=== PATIENT | female | born 1975 | race Caucasian/White ===

== ENCOUNTER 2018-04-09 17:09 | Emergency (ER) | payer OTHER, SELFPAY ==
[2018-04-09 17:10] VITALS: BP 112/72; PULSE 80; RESP 16; TEMP 37.1; O2SAT 97; BMI 38.1
--- NOTE | 2018-04-09 17:33 | RAD_ITS ---
STUDY: X-RAY - LEFT TIBIA AND FIBULA REASON FOR EXAM: Female, 42 years old. Fall TECHNIQUE: 2 view(s) of the tibia and fibula were obtained. COMPARISON: None. FINDINGS: There is no evidence of fracture or dislocation. There are no significant degenerative changes. There are no radiodense foreign bodies. RAD/Tibia & Fibula 2 Views IMPRESSION: No fracture or dislocation. Electronically Signed: Kam Mccracken, at 18:04 EDT Tel , Service support ,
--- NOTE | 2018-04-09 17:36 | ED.VISSUMM ---
- ER Visit Summary Date of Service: 04/09/18 Chief Complaint: Left leg injury History of Present Illness: The patient is a 42 F who was rushing out of her house when the shoelace on her left shoe got caught in the door. Patient fell to the stoop. She injured her left leg. Patient states she is able to walk on her leg but has sharp shooting pain up the back of her leg with ambulation. She has not yet taken anything for pain. Patient takes baby aspirin secondary to a history of A. fib, but is on no other anticoagulants. She did not strike her head or lose consciousness. Physical Examination: Vital signs are unremarkable. Head and neck examination reveals no external sign of trauma. Heart is regular rate and rhythm. Lung sounds are clear. Abdomen is soft nontender. Lower extremity examination was tenderness over the fibular head of the left leg. She has soft tissue tenderness of the anterior thigh as well. She has full range of motion and strong distal pulses. There is early ecchymosis noted over the anterior left thigh. Test Results: Left tib-fib x-rays are obtained and showed no evidence of fracture. Emergency Department Course and Treatment: Is given Naprosyn here for pain. Test results were discussed with her. She will be given an Roberto wrap and prescription for Naprosyn. Treatment Plan: [] Disposition: Discharge Impression: 1. Mechanical fall 2. Left leg contusion This note was generated with [employer] dictation software. It may contain incorrect words, spelling, and punctuation that were not noted in review of the chart prior to signing ED Disposition - Plan for ED Patient: Chief Complaint: Lower Extremity Injury Referrals: Care Physician,No Primary [Primary Care Provider] -
[2018-04-09] MEDS: Naproxen 500 MG Tablet PO (17:40)
--- NOTE | 2018-04-09 18:22 | ED.DEP ---
ED Disposition - Plan for ED Patient: Disposition: Home or Assisted Living Chief Complaint: Lower Extremity Injury Instructions: ED Contusion Lower Ext Prescriptions: Naproxen [Naprosyn] 500 mg PO BID PRN #14 tablet PRN Reason: Pain Referrals: Peter Bush MD [STAFF PHYSICIAN] - As Needed
== END 2018-04-09 18:34 | disposition home or self-care (01) ==
PROVIDERS: Emergency Provider Emergency Medicine
DX: S80.12XA Contusion of left lower leg, initial encounter (principal); W19.XXXA Unspecified fall, initial encounter; Y93.9 Activity, unspecified; Y92.9 Unspecified place or not applicable; I48.91 Unspecified atrial fibrillation; Z90.49 Acquired absence of other specified parts of digestive tract; Z79.82 Long term (current) use of aspirin
CPT/HCPCS: 73590; 99283

== ENCOUNTER 2019-05-07 19:58 | Emergency (ER) | payer OTHER, SELFPAY ==
[2019-05-07] VITALS (7 sets, daily range): BP systolic 107–122; BP diastolic 67–96; PULSE 81–204; RESP 17–29; TEMP 36.8; O2SAT 96–98; BMI 41.5
--- NOTE | 2019-05-07 20:18 | EKG12_ITS ---
Test Reason : REPEAT PALPITATIONS Blood Pressure : / mmHG Vent. Rate : 078 BPM Atrial Rate : 078 BPM P-R Int : 160 ms QRS Dur : 086 ms QT Int : 356 ms P-R-T Axes : 053 029 021 degrees QTc Int : 405 ms Normal sinus rhythm Normal ECG Confirmed by PAT IRELAND, SHANNON ([id number]), senior editor ZECHARIAH NORIEGA ([id number]) on 05/12/2019 8:44:08 AM Referred By: JAGRUTI Confirmed By:SHANNON STEWART MD
--- NOTE | 2019-05-07 20:18 | RAD_ITS ---
STUDY: X-RAY CHEST REASON FOR EXAM: Female, 43 years old. Chest pain TECHNIQUE: Portable chest COMPARISON: 10/08/2016 FINDINGS: The lungs are clear and expanded. There is no demonstrated pleural abnormality. Normal size heart. Normal mediastinum and liat. Normal visualized pulmonary arteries. Normal visualized aortic arch and descending thoracic aorta. Normal visualized thoracic spine. Normal visualized ribs, clavicles, and shoulders. There is no demonstrated abnormality of the visualized soft tissue structures of the upper abdomen. RAD/Chest 1 View (Portable) IMPRESSION: Normal x-ray examination of the chest. Electronically Signed: Nixon Wade, at 20:56 EDT Tel , Service support ,
[2019-05-07 20:36] LABS: Absolute Lymphocyte Count 2.51 X10^3/ul (0.83-4.51); Basophil# 0.03 X10^3/uL; Basophil% 0.3 % (0-1); Eosinophil# 0.22 X10^3/uL; Eosinophils% 2.5 % (0-5); Hematocrit 37.8 % (37-47); Hemoglobin 13.1 g/dl (12.0-15.0); Lymphocyte # 2.51 X10^3/ul (4.0); Mean Corp Hgb Conc 34.7 g/gl (32-36); Mean Corpuscular Hgb 28.5 pg (27.0-32.0); Mean Corpuscular Volume 82.2 fL (81-99); Mean Platelet Vol. 9.7 fl (6.2-12.0); Monocyte# 0.85 X10^3/uL; Monocyte% 9.8 % (0-10); Neutrophil # 5.01 X10^3/uL (2.7-7.7); Neutrophil % 58.1 % (47-70); Platelet Count 247 K/mm3 (150-450); RBC Distribution Width CV 13.8 % (11.6-14.6); White Blood Count 8.7 K/mm3 (4.4-11.0)
[2019-05-07 20:37] LABS: POSITIVE COUNT NO; POSITIVE DIFFERENTIAL NO; POSITIVE MORPHOLOGY NO
--- NOTE | 2019-05-07 20:39 | ED.DCSUM_ITS ---
History of Present Illness Chief Complaint: Palpitations Informant: Patient Onset: Today Timing: Continuous Current Severity: Mild Narrative: Patient indicates she has a history of intermittent paroxysmal A. fib she repo rts about an hour ago she felt as if her heart was racing usually the A. fib stopped spontaneously it did not she presents the emergency department. She has not been ill in any way, she is had no fever no cough no chest pain numbness weakness paresthesias, she has no history of AR PE or DVT, she had extensive prior evaluation by cardiology and was told that the paroxysms would simply be managed as needed conservatively she is on no chronic medications other than aspirin normally she is in a sinus rhythm Past Medical History - Allergies and Home Meds Allergies/Adverse Reactions: Allergies Penicillins Allergy (Verified 05/07/19 19:59) Rash Primary Care Physician: Care Physician,No Primary [Primary Care Provider] - Past Medical History: - - Paroxysmal A. fib Smoking Status: Never smoker Review of Systems All systems negative except as indicated General: Denies: Chills, Fever, Sweats Eyes: Denies: Visual changes - bilaterally, Diplopia ENT: Denies: Rhinorrhea, Sore throat Cardiovascular: Reports: Palpitations. Denies: Chest pain Respiratory: Denies: Dyspnea, Cough, Dyspnea on exertion Gastrointestinal: Denies: Abdominal pain, Nausea, Vomiting, Diarrhea, Melena, Hematochezia Genitourinary: Denies: Dysuria, Hematuria, Frequency Musculoskeletal: Denies: Back pain, Extremity Pain Skin: Denies: Rash, Wounds Neurological: Denies: Headache, Weakness, Numbness Physical Exam Vital Signs/Narrative: Vital Signs Temp Pulse Resp BP Pulse Ox 05/07/19 20:00 98.3 F 99 17 120/78 96 Inital Vital Signs reviewed: Yes General: Well nourished, Well developed, No Acute Distress Head: Normocephalic, Atraumatic Eyes: Perrl, EOMI ENT: Moist mucous membranes, No rhinorrhea Neck: Supple, Nontender Cardiovascular: Regular rate, Regular rhythm, No murmurs, Irregular, - - Irregular rhythm to about 1 40-1 60 A. fib on the monitor Respiratory: No distress, CTA bilaterally, Chest nontender Abdomen: Soft, Nontender, Nondistended, Normal bowel sounds Back: Nontender, Normal Inspection Extremities: Nontender, No edema Skin: Normal color, No rash Neurological: Alert, Oriented x3, Cranial nerves II-XII grossly intact, Normal Strength, Normal Sensation Psychological: Normal affect, Normal Mood Diagnostic/Tx/Re-eval - Medical Decision Making Given all the above IV fluids screening labs are obtained chest x-ray IV Cardizem 20 mg Patient's heart rate remained around 130, she was given a second dose of Cardizem 25 mg, after that she converted to sinus rhythm 80, no injury pattern on EKG, we watched her she remained in sinus rhythm we discussed inpatient versus outpatient management with her she did not wish to be admitted she indicates she had this multiple times in the past she prefers outpatient follow- up Dr. Christina, she will continue her aspirin therapy and return for change in symptoms Final impression Paroxysmal atrial fibrillation converted to sinus rhythm patient declined admission ED Disposition - Plan for ED Patient: Diagnosis: Paroxysmal A-fib Instructions: ED Paroxysmal Atrial Flutter Referrals: Care Physician,No Primary [Primary Care Provider] - Additional Instructions: Follow-up with Dr. Christina in the next few days continue aspirin return for change in symptoms
[2019-05-07 21:01] LABS: Anion Gap 7 (5-15); BUN 16 mg/dL (7-18); BUN/Creat Ratio 17.9 RATIO (10-20); Calcium,Total 9.3 mg/dL (8.5-10.1); Chloride 105 mmol/L (98-107); EST Glomerular Filtration Rate 73 mL/min (>60); Est Glom Filt Rate - Afr Amer 88 mL/min (>60); Estimated Creatinine Clearance 72.53 ml/min; Glucose 139 mg/dL (74-106); Potassium 4.2 mmol/L (3.5-5.1); Sodium Level 137 mmol/L (136-145)
[2019-05-07] MEDS: dilTIAZem 25 MG/5 ML Vial 20 MG IV BOLUS (21:02)
[2019-05-07] MEDS: dilTIAZem 25 MG/5 ML Vial IV BOLUS (21:55)
--- NOTE | 2019-05-07 22:48 | EKG12_ITS ---
Test Reason : PALPITATIONS Blood Pressure : / mmHG Vent. Rate : 132 BPM Atrial Rate : 141 BPM P-R Int : 000 ms QRS Dur : 078 ms QT Int : 264 ms P-R-T Axes : 000 030 006 degrees QTc Int : 391 ms Atrial fibrillation with rapid ventricular response Abnormal ECG Confirmed by PAT IRELAND, SHANNON ([id number]), social media editor ZECHARIAH NORIEGA ([id number]) on 05/12/2019 8:45:09 AM Referred By: ER PHYS Confirmed By:SHANNON STEWART MD
[2019-05-07 22:56] LABS: Amphetamine Urine VISTA NEGATIVE (<1000 ng/mL); Barbiturate Urine VISTA NEGATIVE (< 200 ng/mL); Benzodiazepine Urine VISTA NEGATIVE (< 200 ng/mL); Cocaine Urine VISTA NEGATIVE (< 300 ng/mL); Ecstacy Urine VISTA NEGATIVE (< 500 ng/mL); Methadone Urine VISTA NEGATIVE (< 300 ng/mL); PCP Urine VISTA NEGATIVE (< 25 ng/mL); THC Urine VISTA NEGATIVE (< 50 ng/mL); Vista UDS pH Range 6
== END 2019-05-07 23:25 | disposition home or self-care (01) ==
LOC: ED 20:30
PROVIDERS: Family Medicine; Emergency Provider Emergency Medicine
DX: I48.0 Paroxysmal atrial fibrillation (principal)
CPT/HCPCS: 71045; 80048; 80307; 84484; 85025; 93005; 96374; 96376; 99284; J7030; A4216

== ENCOUNTER → 2019-08-20 09:13 | Outpatient (CLI) | payer OTHER, SELFPAY ==
[2019-08-18 10:29] VITALS: BMI 41.5
--- NOTE | 2019-08-20 10:03 | RAD_ITS ---
HISTORY:left knee pain left knee pain COMPARISON: None FINDINGS: # of images incl. paperwork: 4 XR Knee Complete 4 Views or More: Left BONE AND JOINTS: No acute fracture or subluxation. Enthesophytes at the patella SOFT TISSUES: Unremarkable. No radiopaque foreign body. RAD/Knee 4 or More Views IMPRESSION: No acute pathology If symptoms persist repeat study in 7-10 days or sooner if clinically indicated at 1908 Reported and signed by: Tessa Armando DO Electronically Signed: Tessa Armando DO at 19:07 EDT Tel , Service support ,
[2019-08-20 12:14] LABS: Absolute Lymphocyte Count 1.79 X10^3/uL (0.83-4.51); Absolute Neutrophil Count 3.8 X10^3/uL (2.0-7.7); Basophil# 0.03 X10^3/uL; Basophil% 0.5 % (0-1); Eosinophil# 0.13 X10^3/uL; Eosinophils% 2.1 % (0-5); Hemoglobin 12.4 g/dL (12.0-15.0); Lymphocyte # 1.79 X10^3/ul (4.0); Lymphocyte % 28.3 % (19-41); Mean Corp Hgb Conc 32.6 g/dL (32-36); Mean Corpuscular Hgb 27.9 pg (27.0-32.0); Mean Corpuscular Volume 85.4 fL (81-99); Mean Platelet Vol. 10.1 fl (6.2-12.0); Monocyte# 0.56 X10^3/uL; Monocyte% 8.8 % (0-10); NRBC Flagged by Analyzer 0 % (0-5); Platelet Count 225 K/mm3 (150-450); RBC Distribution Width CV 13.7 % (11.6-14.6); RBC Distribution Width SD 42.5 fl (35.1-43.9); Red Blood Count 4.45 M/mm3 (4.2-5.4); White Blood Count 6.3 K/mm3 (4.4-11.0)
[2019-08-20 12:48] LABS: ALB/GLOB Ratio 0.8 RATIO (0.9-2.4); AST(SGOT) 24 U/L (15-37); Alanine Aminotransfer ALT/SGPT 45 U/L (13-56); Albumin, Serum 3.6 g/dL (3.2-5.0); Alkaline Phosphatase 52 U/L (45-117); Anion Gap 9 (5-15); BUN 12 mg/dL (7-18); BUN/Creat Ratio 18.2 RATIO (10-20); Chloride 106 mmol/L (98-107); Cholesterol 121 mg/dL (200); Creatinine, Serum 0.66 mg/dL (0.55-1.02); EST Glomerular Filtration Rate 104 mL/min (>60); Est Glom Filt Rate - Afr Amer 126 mL/min (>60); Globulin 4.4 g/dL (2.2-4.2); Glucose 86 mg/dL (74-106); High Density Lipoprotein 41 mg/dL; Potassium 3.8 mmol/L (3.5-5.1); Sodium Level 139 mmol/L (136-145); T4 Free Direct 1.08 ng/dL (0.76-1.46); Thyroid Stim Hormone (TSH) 3.28 uIU/mL (0.358-3.74); Triglycerides 172 mg/dL; Very Low Density Lipoprotein 34 mg/dL (5-40)
== END ==
PROVIDERS: Family Provider Internal Medicine; PCP Internal Medicine; Referring Provider Internal Medicine; Visit Provider Internal Medicine
DX: M25.562 Pain in left knee (principal); I48.0 Paroxysmal atrial fibrillation; E66.01 Morbid (severe) obesity due to excess calories; Z68.41 Body mass index [BMI] 40.0-44.9, adult
CPT/HCPCS: 36415; 73564; 80053; 80061; 84439; 84443; 85025

== ENCOUNTER 2019-10-11 04:44 | Inpatient (IN) | payer OTHER, SELFPAY ==
[2019-09-29 11:22] VITALS: BMI 42.7
[2019-10-11] VITALS (31 sets, daily range): BP systolic 95–148; BP diastolic 57–124; PULSE 69–165; RESP 16–28; TEMP 36.5–36.9; O2SAT 96–100; BMI 40.6; BMI 42.4
--- NOTE | 2019-10-11 04:57 | RAD_ITS ---
STUDY: X-RAY CHEST REASON FOR EXAM: Female, 43 years old. Atrial fibrillation TECHNIQUE: Single AP portable view of the chest. COMPARISON: 05/07/2019. FINDINGS: The lungs are underexpanded with vascular crowding, otherwise clear. There is no demonstrated pleural abnormality. Normal size heart. Normal mediastinum and liat. Normal visualized pulmonary arteries. Normal visualized aortic arch and descending thoracic aorta. There are diffuse degenerative changes of the visualized thoracic spine. There is degenerative osteoarthritis of the bilateral shoulders. There is no demonstrated abnormality of the visualized soft tissue structures of the upper abdomen. RAD/Chest 1 View (Portable) IMPRESSION: No acute cardiopulmonary disease. Electronically Signed: Perlita España MD at 5:35 EST , Service support ,
--- NOTE | 2019-10-11 04:57 | EKG12_ITS ---
Test Reason : Blood Pressure : / mmHG Vent. Rate : 137 BPM Atrial Rate : 078 BPM P-R Int : 000 ms QRS Dur : 070 ms QT Int : 302 ms P-R-T Axes : 000 047 021 degrees QTc Int : 456 ms Atrial fibrillation with rapid ventricular response Abnormal ECG Confirmed by PAT IRELAND, SHANNON ([id number]), purchasing expeditor ZECHARIAH NORIEGA ([id number]) on 10/13/2019 2:14:15 PM Referred By: MR Confirmed By:SHANNON STEWART MD
[2019-10-11] MEDS: dilTIAZem 25 MG/5 ML Vial 10 MG IV BOLUS (05:08)
[2019-10-11] MEDS: Aspirin 81 MG TAB.CHEW 324 MG PO (05:09)
[2019-10-11 05:16] LABS: Absolute Lymphocyte Count 2.27 X10^3/uL (0.83-4.51); Absolute Neutrophil Count 4.7 X10^3/uL (2.0-7.7); Basophil# 0.03 X10^3/uL; Basophil% 0.4 % (0-1); Eosinophil# 0.22 X10^3/uL; Eosinophils% 2.8 % (0-5); Hematocrit 38.3 % (37-47); Hemoglobin 12.9 g/dL (12.0-15.0); Lymphocyte # 2.27 X10^3/ul (4.0); Lymphocyte % 28.6 % (19-41); Mean Corp Hgb Conc 33.7 g/dL (32-36); Mean Corpuscular Hgb 29.1 pg (27.0-32.0); Mean Corpuscular Volume 86.5 fL (81-99); Mean Platelet Vol. 9.6 fl (6.2-12.0); Monocyte# 0.75 X10^3/uL; Monocyte% 9.4 % (0-10); NRBC Flagged by Analyzer 0 % (0-5); Neutrophil # 4.65 X10^3/uL (2.7-7.7); Neutrophil % 58.4 % (47-70); Platelet Count 239 K/mm3 (150-450); RBC Distribution Width CV 13.7 % (11.6-14.6); RBC Distribution Width SD 42.3 fl (35.1-43.9); Red Blood Count 4.43 M/mm3 (4.2-5.4)
[2019-10-11 05:30] LABS: Anion Gap 8 (5-15); BUN 10 mg/dL (7-18); BUN/Creat Ratio 13.9 RATIO (10-20); Calcium,Total 8.8 mg/dL (8.5-10.1); Chloride 107 mmol/L (98-107); Creatinine, Serum 0.72 mg/dL (0.55-1.02); EST Glomerular Filtration Rate 94 mL/min (>60); Est Glom Filt Rate - Afr Amer 113 mL/min (>60); Estimated Creatinine Clearance 90.66 ml/min; Glucose 126 mg/dL (74-106); Potassium 3.9 mmol/L (3.5-5.1); Sodium Level 140 mmol/L (136-145)
--- NOTE | 2019-10-11 06:04 | ED.VIS.GEN ---
History of Present Illness Chief Complaint: Palpitations Narrative: Patient presenting for evaluation secondary to palpitations and concerns for A. fib. Patient had history of going into A. fib paroxysmally in the past, had a extensive work-up by cardiology and actually has been well controlled and not on any sort of rate control, rhythm control, or anticoagulant medications. Patient reports that tonight at about 11 or 1130 she went to bed she was feeling well, and that at about 3 or 3:30 in the morning she woke up and was having feelings that she was in A. fib. It was associated with feelings of palpitations chest pain and shortness of breath. Patient denies any recent illness. She denies any stimulant use. No exacerbating relieving factors associated with this. Review of systems otherwise negative. Past Medical History - Allergies and Home Meds Allergies/Adverse Reactions: Allergies Penicillins Allergy (Verified 10/11/19 04:48) Rash Primary Care Physician: Peter Bush MD [Primary Care Provider] - Past Medical History: - - Paroxysmal atrial fibrillation Lives: Spouse/ Significant Other Smoking Status: Never smoker Alcohol: None Drugs: None Review of Systems General: Denies: Chills, Fever, Sweats Eyes: Denies: Visual changes - bilaterally, Diplopia ENT: Denies: Rhinorrhea, Sore throat Cardiovascular: Reports: Chest pain, Palpitations Respiratory: Reports: Dyspnea. Denies: Cough, Dyspnea on exertion Gastrointestinal: Denies: Abdominal pain, Nausea, Vomiting, Diarrhea, Melena, Hematochezia Genitourinary: Denies: Dysuria, Hematuria, Frequency Musculoskeletal: Denies: Back pain, Extremity Pain Skin: Denies: Rash, Wounds Neurological: Denies: Headache, Weakness, Numbness Physical Exam Vital Signs/Narrative: Vital Signs Temp Pulse Resp BP Pulse Ox 10/11/19 06:00 128 H 20 H 102/77 97 10/11/19 05:36 117 H 22 H 100/73 98 10/11/19 05:16 110 H 16 125/61 H 97 10/11/19 05:10 155 H 22 H 148/124 H 98 10/11/19 04:57 97 10/11/19 04:45 97.7 F L 165 H 24 H 127/79 H 96 Inital Vital Signs reviewed: Yes General: Well nourished, Well developed, No Acute Distress Head: Normocephalic, Atraumatic Eyes: Perrl, EOMI ENT: Moist mucous membranes, No rhinorrhea Neck: Supple, Nontender Cardiovascular: No murmurs, Irregular, Tachycardia, - - 2+ radial pulses bilaterally symmetric Respiratory: No distress, CTA bilaterally, Chest nontender Abdomen: Soft, Nontender, Nondistended, Normal bowel sounds Back: Nontender, Normal Inspection Extremities: Nontender, No edema Skin: Normal color, No rash Neurological: Alert, Oriented x3, Cranial nerves II-XII grossly intact, Normal Strength, Normal Sensation Psychological: Normal affect, Normal Mood Diagnostic/Tx/Re-eval Chest X-Ray - ED: 1 View, Read by ED Physician, Read by Radiologist, Normal - EKG Initial EKG Interpretation: - - Atrial fibrillation with rapid ventricular rate of 137. Isoelectric ST segments normal T waves. No evidence of acute ischemia. - Medical Decision Making Patient presented for evaluation secondary to palpitations and onset of A. fib. EKG confirmed this. Chest x-ray was negative. CBC chemistry and troponin were found to be unremarkable. Patient's rate responded somewhat to 10 mg of Cardizem, but her blood pressure was mediocre. Her rate came down to the 10 5-1 15 range, so the patient was started on a Cardizem drip. Patient at this point I believe requires admission to the hospital. This will be discussed with the hospitalist. 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
--- NOTE | 2019-10-11 06:20 | HP.PCM_ITS ---
Problem List (1) Paroxysmal A-fib Status: Chronic (2) Left knee pain Status: Inactive (3) Atrial fibrillation with RVR Status: Acute History of Present Illness Date of Admission: 10/11/19 Chief Complaint: Palpitations The patient is a 43 year old F with a significant history of paroxysmal A. fib who presented to emergency department with palpitations that started few hours before presentation. She woke up at 3:30 AM with palpitations. Because her symptoms persisted she woke her up and was brought to the emergency department. Associated with her symptoms is shortness of breath; nausea and vomiting. At the emergency department patient was given Cardizem 10 mg IV bolus. Her blood pressure could not tolerate further Cardizem IV bolus so patient was sta rted on Cardizem drip. She reported that in the past she had about 3 episodes of A. fib. Past Medical History Past Medical History (Chronic Problems): Chronic Problems (Last Reviewed 09/29/19 @ 11:21 by Nona Fuentes) Paroxysmal A-fib (Chronic) Medical History: Medical History (Last Reviewed 10/11/19 @ 07:38 by Tio Schaefer MD) Atrial fibrillation I48.91 Carpal tunnel syndrome G56.00 History of blood transfusion Z92.89 with delivery of child, 1996 Chronic back pain M54.9, G89.29 Allergies Penicillins Allergy (Verified 10/11/19 04:48) Rash Home Medications: Ambulatory Orders Medication Instructions Recorded glucosamine HCl 750 mg tablet 750 mg PO BID 08/18/19 multivitamin capsule 1 cap PO DAILY 08/18/19 Surgical History: Surgical History (Last Reviewed 10/11/19 @ 07:32 by Tio Schaefre MD) History of bunionectomy Z98.890 History of cholecystectomy Z90.49 History of tubal ligation Z98.51 Lives: With Family Smoking Status: Never smoker - Tried smoking for about one month while in high school. Alcohol: None Drugs: None - *Family History Maternal Family History: Family History (Last Reviewed 10/11/19 @ 07:38 by Tio Schaefer MD) Father Diabetes Mother Cancer Grandmother Dementia Other Arthritis Mental problems Review of Systems Constitutional: Denies: Chills, Fever, Weight Change HEENT: Denies: Head Aches, Sinus Congestion, Sinus Drainage Cardiovascular: Reports: Palpitations. Denies: Chest Pain Respiratory: Reports: Shortness of Breath. Denies: Cough, Shortness of breath at rest, Sputum production Gastrointestinal: Reports: Nausea, Vomiting. Denies: Abdominal Pain Genitourinary: Denies: Dysuria Musculoskeletal: Denies: Joint Pain, Joint Tenderness Skin: Denies: Rash, Wounds Neurological: Denies: Numbness, Tingling, Focal weakness Psychiatric: Denies: Anxiety, Depression, Homicidal Ideations, Suicidal Ideations Hematologic/ Lymphatic: Denies: Easy Bruising, Easy Bleeding VTE Information - Inpt Only VTE Present on Admission: No VTE Mechan Device Prophylaxis: None VTE Pharm Prophylaxis ordered?: No Reason prophylaxis not ordered:: Treatment Not Indicated - Not indicated since therapeutic dose of Lovenox has been ordered for A. fib Patient Problems: Active and Suspected Problems (Last Reviewed 09/29/19 @ 11:21 by Nona Fuentes) Atrial fibrillation with RVR (Acute) - Physical Exam Vitals/I&O's: Vital Signs Temp Pulse Resp BP Pulse Ox 97.7 F L 128 H 20 H 102/77 97 10/11/19 04:45 10/11/19 06:00 10/11/19 06:00 10/11/19 06:00 10/11/19 06:00 Oxygen Flow Rate (L/min) 2 Oxygen Delivery Method Nasal Cannula Weight: 110.6 kg Body Mass Index (BMI) 40.6 General: Alert, Oriented x3, Cooperative HEENT: Atraumatic, PERRLA, EOMI, Normocephalic Neck: Supple, No JVD, Negative Carotid Bruits Lungs: Clear to auscultation, Normal air movement, Tachypneic Cardiovascular: Normal S1, Normal S2, No murmurs, Irregular Rate, Tachycardic Abdomen: Bowel Sounds Present, Soft, Non Tender Extremities: No edema, Capillary Refill Less than 3 Seconds Skin: No rashes, No breakdown Musculoskeletal: No Tenderness to Palpation of Joints or Extremities Neurological: Cranial nerves II-XII grossly intact Psych/Mental Status: Normal Affect, Appropriate Laboratory Results 10/11/19 04:50: WBC 8.0, RBC 4.43, Hgb 12.9, Hct 38.3, MCV 86.5, MCH 29.1, MCHC 33.7, RDW Std Deviation 42.3, RDW Coeff of Salome 13.7, Plt Count 239, MPV 9.6, Immature Gran % (Auto) 0.400, Neut % (Auto) 58.4, Lymph % (Auto) 28.6, [place] % (Auto) 9.4, Eos % (Auto) 2.8, Baso % (Auto) 0.4, Absolute Neuts (auto) 4.7, Abs olute Lymphs (auto) 2.27, Nucleated RBC % 0 10/11/19 04:50: Sodium 140, Potassium 3.9, Chloride 107, Carbon Dioxide 25.0, Anion Gap 8, BUN 10, Creatinine 0.72, Estim Creat Clear Calc 90.66, Est GFR (MDRD) Af Amer 113, Est GFR (MDRD) Non-Af 94, BUN/Creatinine Ratio 13.9, Glucose 126 H, Calcium 8.8, Troponin I < 0.015 Current Medications Diltiazem HCl 125 mg/ Dextrose 125 mls @ 5 mls/hr IV .Q25H TAMANNA; Protocol Assessment/Plan All Active Problems (Last Reviewed 09/29/19 @ 11:21 by Nona Fuentes) Atrial fibrillation with RVR (Acute) The patient is a 43 year old F with a significant history of paroxysmal A. fib who presented to emergency department with palpitations and found to be in A. fib with RVR. A. fib with RVR EKG was reviewed at emergency department. EKG showed A. fib with RVR. Also patient was noted to have irregularly irregular rate and rhythm on the monitor. Placed on PCU on telemetry Lovenox 1 mg per kilogram x1 For rate control: Continue Cardizem drip started in the emergency department. Potassium is 3.9. Will give 10 mEq potassium p.o. Check magnesium. Check TSH Patient's blood pressure was bouncing in the 80s to low 100s; while her heart rates was 100s to 160s but mainly in the 130s while on Cardizem 5 mg/h drip. Discussed the case with as400 programmer analyst Dr. Chapin who agreed to see patient Trend BMP DVT prophylaxis Not indicated since patient has been given therapeutic dose of Lovenox for her A. fib. Code Visit Inpatient E&M: 30481 Init Hosp L3
[2019-10-11] MEDS: Enoxaparin 120 MG/0.8 ML Syringe 110 MG SC (07:37)
[2019-10-11 07:38] LABS: Magnesium 1.9 mg/dL (1.6-2.6)
[2019-10-11 07:54] LABS: Thyroid Stim Hormone (TSH) 4.84 uIU/mL (0.358-3.74)
[2019-10-11] MEDS: dilTIAZem 25 MG/5 ML Vial 20 MG IV BOLUS (08:09)
[2019-10-11] MEDS: 0.9% Saline Lock 10 ML Syringe IV ×2 (08:12→21:49)
--- NOTE | 2019-10-11 09:25 | CON.PCM_ITS ---
Reason for Consult Date of Consultation: 10/11/19 Reason for Consultation: Fast heartbeat History of Present Illness: The patient is a 43 year old F with a previous history of paroxysmal atrial fibrillation who says that she has had at least 2 or 3 episodes of the above within the last year. She presented to the emergency room with palpitations which woke up from bed at approximately 3:30 AM. She was seen in the emergency room and at that time she was noted to be tachycardic with heart rate in the 130s. She was administered intravenous Cardizem which was repeated with mild slowing down. Cardiology was called for further evaluation and management. She denies any chest pain or paroxysmal nocturnal dyspnea no presyncope or syncope she has had palpitations she did have previous stress test and echocardiograms which were noted to be normal. At this particular time she does not feel her arrhythmia. [] Past Medical History Allergies/Adverse Reactions: Allergies Penicillins Allergy (Verified 10/11/19 04:48) Rash Home Medications: Ambulatory Orders Medication Instructions Recorded glucosamine HCl 750 mg tablet 750 mg PO BID 08/18/19 multivitamin capsule 1 cap PO DAILY 08/18/19 Past Medical History (Chronic Problems): Chronic Problems (Last Reviewed 10/11/19 @ 07:38 by Tio Schaefer MD) Paroxysmal A-fib (Chronic) - *Family History Maternal Family History: Family History (Last Reviewed 10/11/19 @ 07:38 by Tio Schaefer MD) Father Diabetes Mother Cancer Grandmother Dementia Other Arthritis Mental problems Lives: With Family Smoking Status: Never smoker - Tried smoking for about one month while in high school. Alcohol: None Drugs: None Review of Systems - Review of Systems General: Denies: Fever, Night Sweats, Fatigue HEENT: Denies: Vision Change Cardiovascular: Reports: Palpitations. Denies: Chest Discomfort, Shortness of Breath, Orthopnea, PND, Peripheral Edema, Lightheadedness, Dizziness, Near Syncope, Syncope Respiratory: Denies: Cough, Sputum Production, Hemoptysis Gastrointestinal: Denies: Hematemesis, Hematochezia, Melena Genitourinary: Denies: Dysuria, Hematuria Muscoloskeletal: Denies: Myalgias Skin: Denies: Rash Neurological: Denies: Dizziness Psychiatric: Denies: Anxiety Endocrine: Denies: Unexplained Weight Loss Hematologic/ Lymphatic: Denies: Anemia Subjectve: Pleasant lady in no distress Objective: Vital Signs Temp Pulse Resp BP Pulse Ox 98.4 F 122 H 18 117/70 98 10/11/19 08:01 10/11/19 08:45 10/11/19 08:45 10/11/19 08:45 10/11/19 08:45 Oxygen Flow Rate (L/min) 2 Oxygen Delivery Method Room Air Weight: 255 lb 1.197 oz Body Mass Index (BMI) 42.4 Intake and Output for Last 24 Hours 10/09/19 10/10/19 10/11/19 23:59 23:59 23:59 Intake Total 16.83 / 16.83 Balance 16.83 / 16.83 General: Awake, Alert, Oriented x 3 HEENT: PERRL, EOMI, Sclera Non Icteric Neck: Supple, Good ROM, No Lymph Node Enlargement Lungs: Clear to auscultation Cardiovascular: Irregular Rhythm, Normal S1, Normal S2, No Murmurs, No Rubs, No Gallops Vascular: No Carotid Bruits, Normal Femoral Pulses, Normal Radial Pulses, Normal Dorsalis Pedal Pulse, Normal Posterior Tibial Pulses Abdomen: Bowel Sounds Present, Soft, Non Tender, No HSM, No Organomegaly Extremities: No Cyanosis, No Clubbing, No edema Musculoskeletal: No Erythema Skin: No Rashes Lymphatic: No Lymph Node Enlargement Neurological: No Focal Motor or Sensory Deficit Psych/Mental Status: Appropriate 10/11/19 04:50: WBC 8.0, RBC 4.43, Hgb 12.9, Hct 38.3, MCV 86.5, MCH 29.1, MCHC 33.7, Plt Count 239, MPV 9.6, Immature Gran % (Auto) 0.400, Neut % (Auto) 58.4, Lymph % (Auto) 28.6, Camas % (Auto) 9.4, Eos % (Auto) 2.8, Baso % (Auto) 0.4, Absolute Neuts (auto) 4.7, Nucleated RBC % 0 10/11/19 04:50: Sodium 140, Potassium 3.9, Chloride 107, Carbon Dioxide 25.0, Anion Gap 8, BUN 10, Creatinine 0.72, Est GFR (MDRD) Af Amer 113, Est GFR (MDRD) Non-Af 94, BUN/Creatinine Ratio 13.9, Glucose 126 H, Calcium 8.8, Troponin I < 0.015 10/11/19 04:50: Magnesium 1.9 Rhythm: EKG: Atrial fibrillation with a rate of 137 bpm ECHO: Stress Test: Cardiac Cath: PCI: CT Surgery: Holter monitor: EPS: PPM: CXR: Chest CT Scan: Assessment/Plan 1. Paroxysmal atrial fibrillation * Etiology of the above is unclear at this particular time. 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 Her chads score is noted to be 1. * Recommendation at this time would be to put her on short-term anticoagulation * Consider DC cardioversion within the next 24 to 48 hours if patient does not convert to sinus rhythm this may be done with or without VASHTI. * Recommend long-term antiarrhythmic with a type Ic agent such as flecainide with a low-dose beta-sonam. * Will recommend repeat echocardiogram * Consider sleep study * * Thank you for allowing me to participate in the care of your patient. Please don't hesitate to call if any issues arise
--- NOTE | 2019-10-11 09:30 | ECHOCS_ITS ---
Reason For Study: Afib/Flutter Procedure This was a 2D Doppler, Color Flow transthoracic echocardiogram. The study was technically difficult. Contrast injection was performed. Exam performed portable in patient room. Left Ventricle Normal LV size. Left ventricular systolic function is normal. The estimated ejection fraction is 65 %. Normal diastology for age. No regional wall motion abnormalities noted. Right Ventricle Normal RV size. Normal systolic function. Atria Normal left atrium. Normal right atrium. Mitral Valve Normal mitral valve. Tricuspid Valve Normal tricuspid valve. Aortic Valve Normal aortic valve. Pulmonic Valve Normal pulmonic valve. Great Vessels Normal aortic root. The pulmonary artery is normal size. Normal inferior vena cava. Pericardium/Pleural No pericardial effusion. Medication Diluted definity 2ml given slow IV push to enhance endocardial definition. MMode/2D Measurements & Calculations LVIDd: 4.2 cm IVSd: 1.1 cm Ao root diam: 2.9 cm LVIDs: 3.0 cm LVPWd: 0.96 cm LA dimension: 3.7 cm FS: 29.6 % LAV(MOD-bp): 44.5 ml LA A4 area: 16.1 cm2 RA A4 area: 11.7 cm2 LAV(MOD-bp) Indexed: 20.3 ml/m2 LAV(MOD-sp2): 45.0 ml LAV(MOD-sp4): 41.0 ml Time Measurements MV dec time: 0.22 sec Doppler Measurements & Calculations MV E max sajan: 97.4 cm/sec Lat Peak E' Sajan: 13.2 cm/sec Med Peak E' Sajan: 14.3 cm/sec MV A max sajan: 81.2 cm/sec E/E' lat: 7.4 E/E' med: 6.8 MV E/A: 1.2 MV V2 max: 128.1 cm/sec MV P1/2t max sajan: 131.0 cm/sec Ao V2 max: 121.0 cm/sec MV max P.6 mmHg MV P1/2t: 62.5 msec Ao max P.9 mmHg MV V2 mean: 62.5 cm/sec MV dec slope: 613.8 cm/sec2 MV mean P.9 mmHg MV V2 VTI: 30.6 cm MVA(P1/2t): 3.5 cm2 LV V1 max: 98.5 cm/sec PA V2 max: 75.1 cm/sec LV V1 max P.9 mmHg Interpretation Summary Normal LV size. Left ventricular systolic function is normal. The estimated ejection fraction is 65 %. Normal diastology for age. Structurally normal valves. Ordering Physician: Quincy Chapin Referring Physician: Peter Bush Performed By: Raza Ledezma RCS
--- NOTE | 2019-10-11 09:42 | EKG12_ITS ---
Test Reason : Blood Pressure : / mmHG Vent. Rate : 080 BPM Atrial Rate : 080 BPM P-R Int : 158 ms QRS Dur : 080 ms QT Int : 358 ms P-R-T Axes : 061 052 031 degrees QTc Int : 412 ms Normal sinus rhythm Normal ECG When compared with ECG of 11-OCT-2019 04:53, MANUAL COMPARISON REQUIRED, DATA IS UNCONFIRMED Confirmed by VINNIE CARTER ([id number]), supervising editor trailer ROSE KRUSE ([id number]) on 10/16/2019 11:33:02 AM Referred By: TERRI Confirmed By:VINNIE CARTER
[2019-10-11] MEDS: Flecainide 100 MG Tablet PO ×2 (09:58→21:49)
--- NOTE | 2019-10-11 11:05 | PCM.HOSP.N ---
Hospitalist Note Patient was seen and examined today briefly, she is on a Cardizem drip, I talked with cardiology about her care today, cardiology placed the patient on Eliquis and added flecainide to the patient's medications. Patient will be monitored on telemetry, she may ultimately need cardioversion during this hospital stay.
[2019-10-11] MEDS: APIXABAN 5 MG TABLET PO (21:49)
[2019-10-12] VITALS (11 sets, daily range): BP systolic 101–132; BP diastolic 53–68; PULSE 72–86; RESP 16–18; TEMP 36.6–36.7; O2SAT 94–100
[2019-10-12 06:42] LABS: BUN 11 mg/dL (7-18); BUN/Creat Ratio 16.3 RATIO (10-20); Calcium,Total 8.7 mg/dL (8.5-10.1); Creatinine, Serum 0.68 mg/dL (0.55-1.02); EST Glomerular Filtration Rate 101 mL/min (>60); Est Glom Filt Rate - Afr Amer 122 mL/min (>60); Estimated Creatinine Clearance 95.99 ml/min; Glucose 103 mg/dL (74-106); Sodium Level 138 mmol/L (136-145)
[2019-10-12 06:43] LABS: Anion Gap 7 (5-15); Chloride 105 mmol/L (98-107); Potassium 4.2 mmol/L (3.5-5.1)
[2019-10-12] MEDS: Metoprolol(XL)Succ 25 MG Tablet PO (09:31)
[2019-10-12] MEDS: Flecainide 100 MG Tablet PO ×2 (09:31→21:10)
[2019-10-12] MEDS: APIXABAN 5 MG TABLET PO ×2 (09:32→21:10)
--- NOTE | 2019-10-12 12:00 | CASEMGMT ---
RN LIZA SUPERINTENDENT [employer]IT[employer] CM to room to meet with patient for initial transition planning/care coordination assessment. RN LIZA introduced self and role at [facility]. Pt voices understanding and consents to assessment at this time. Pt sitting up on edge bed in no distress at this time. Pt is A/O at this time and answers all questions appropriately. Care providers, pharmacy, and demographics verified at this time. PCP: Eleazar Specialists: Denies Preferred Pharmacy: [facility] Insurance: [facility] Prescription Benefit: No. Anticipate pt will be discharged home on anti-coagulatant and anti-arrythmic. States they opted out of getting prescription coverage when they signed up for Healthcare. SPA EXPERIENCE COORDINATOR LIZA, Martin, made aware. Living Will/HPOA: has both LW and HCPOA, who is her , Nikko. Pt states will see if her or one of her children can bring in copies to be placed on file @ [facility]. Pt states, I did them a long time ago. Pt made aware if she wishes to update them/make changes, to ask for SW while @ [facility] for assistance with completing new paperwork. Also given Social Service rac card with number to call if chooses in the future to utilize [facility] social work for advanced directive updates. LNOK: . 5 children. Living Arrangements: Lives with her and 3 children. Independent. Works full-time, driving bus. Transportation: Pt states drives self and states no transportation concerns at this time. DME: Denies using any DME and denies needs. States plans on having sleep-study done in 2020. HHC/SNF: No history of either. No needs identified. Pt wishes to return home and states has no concerns with going home at time of discharge except for cost of meds @ discharge. CM to follow for further discharge planning/needs. Advised pt to ask for CM if any further questions/concerns/needs arise. Voices understanding. PLAN: Home. Anticipate pt will be discharged home on anti-coagulant and anti-arrythmic. CM to follow for discharge meds, as pt states does not have prescription coverage. Connor BAIRD RN, CM
--- NOTE | 2019-10-12 13:12 | PCM.PN.CARD ---
Subjectve: The patient is awake and alert. She states she is feeling well at this time. She knows that she has returned to sinus rhythm. Objective: Vital Signs Temp Pulse Resp BP Pulse Ox 97.9 F 79 16 113/68 97 10/12/19 09:30 10/12/19 09:31 10/12/19 09:30 10/12/19 09:30 10/12/19 09:30 Oxygen Flow Rate (L/min) 2 Oxygen Delivery Method Room Air Weight: 255 lb 1.197 oz Body Mass Index (BMI) 42.4 Intake and Output for Last 24 Hours 10/10/19 10/11/19 10/12/19 23:59 23:59 23:59 Intake Total 656.83 / 656.83 835 / 835 Balance 656.83 / 656.83 835 / 835 General: Awake, Alert, Oriented x 3, Cooperative, No Acute Distress, Obese HEENT: Atraumatic, Normocephalic, PERRL, EOMI, Sclera Non Icteric Oral: Moist Mucosa Neck: Supple, Good ROM, No JVD Lungs: Clear to auscultation Cardiovascular: Regular Rhythm, Normal S1, Normal S2 Abdomen: Bowel Sounds Present, Soft, Non Tender, Obese Neurological: No Focal Motor or Sensory Deficit Psych/Mental Status: Appropriate 10/12/19 06:08: Sodium 138, Potassium 4.2, Chloride 105, Carbon Dioxide 26.0, Anion Gap 7, BUN 11, Creatinine 0.68, Est GFR (MDRD) Af Amer 122, Est GFR (MDRD) Non-Af 101, BUN/Creatinine Ratio 16.3, Glucose 103, Calcium 8.7 Rhythm: Sinus rhythm Medical Necessity - Tobacco Use Smoking Status: Never smoker - Tried smoking for about one month while in high school. Assessment/Plan 1. Paroxysmal atrial fibrillation The patient has returned to sinus rhythm. She is been on rate control therapy and anticoagulant therapy. She is being started on antiarrhythmic therapy. She will need a minimum of 4 doses of her antiarrhythmic agent while in the hospital. During this time she will have a follow-up of her cardiac rhythm and subsequently ECG. If she remains symptomatically hemodynamically stable following her monitoring. Then hopefully she will be able to be released home for continued outpatient follow-up. This note was generated using a voice recognition system and there may be incorrect words, spelling or punctuation that were not noted when reviewing the office note prior to saving.
--- NOTE | 2019-10-12 17:25 | PCM.PROGNOTE ---
Patient Problems: Active and Suspected Problems (Last Reviewed 10/11/19 @ 07:38 by Tio Schaefer MD) Atrial fibrillation with RVR (Acute) Subjective: Patient was seen and examined today, I talked to her and her concerning her anticoagulant which she will need to take as an outpatient, patient has no insurance coverage presently for prescriptions, they want to have any prescription coverage until December 2019. I told the patient that I could get her a coupon for 30 days of either Eliquis or Xarelto but that she may have to pay for 2 weeks of the medication in November until she is able to get prescription coverage in December 2019. - Physical Exam Vitals/I&O's: Vital Signs Temp Pulse Resp BP Pulse Ox 98.1 F 77 18 102/53 L 100 10/12/19 15:30 10/12/19 15:30 10/12/19 15:30 10/12/19 15:30 10/12/19 15:30 Oxygen Flow Rate (L/min) 2 Oxygen Delivery Method Room Air Weight: 115.7 kg Body Mass Index (BMI) 42.4 Intake and Output for Last 24 Hours 10/10/19 10/11/19 10/12/19 23:59 23:59 23:59 Intake Total 656.83 / 656.83 835 / 835 Balance 656.83 / 656.83 835 / 835 General: Alert, Oriented x3, Cooperative, No apparent distress, Well developed HEENT: Atraumatic, PERRLA, EOMI, Normocephalic Oral: Moist Mucosa Neck: Supple, Trachea Midline, Thyroid Normal Size and Texture Lungs: Clear to auscultation, Normal air movement, No rhonchi, No wheeze, No rales Cardiovascular: Regular rate, Regular Rhythm, Normal S1, Normal S2, No murmurs, PMI Normal, No rub noted, No Gallop Abdomen: Bowel Sounds Present, Soft, Non Tender, Non-Distended, No hernias noted Extremities: No clubbing, No cyanosis, No edema, Capillary Refill Less than 3 Seconds Skin: No rashes, No breakdown Musculoskeletal: No Tenderness to Palpation of Joints or Extremities Neurological: Cranial nerves II-XII grossly intact, Neuro grossly intact, Sensory exam intact to light touch and pain Psych/Mental Status: Normal Affect, Appropriate, Alert and oriented to time, place, person, mood and affect Laboratory Results 10/12/19 06:08: Sodium 138, Potassium 4.2, Chloride 105, Carbon Dioxide 26.0, Anion Gap 7, BUN 11, Creatinine 0.68, Estim Creat Clear Calc 95.99, Est GFR (MDRD) Af Amer 122, Est GFR (MDRD) Non-Af 101, BUN/Creatinine Ratio 16.3, Glucose 103, Calcium 8.7 Current Medications Acetaminophen (Tylenol) 650 mg PO Q6H PRN PRN PRN Reason: Pain Score 1-3/Temp > 100.7 F Apixaban (Eliquis) 5 mg PO BID [facility] Last Admin: 10/12/19 09:32 Dose: 5 mg Documented by: Dextrose ([id number] Syringe) 0 gm IV X1 PRN; Protocol PRN Reason: Hypoglycemia Flecainide Acetate (Tambocor) 100 mg PO BID [facility] Last Admin: 10/12/19 09:31 Dose: 100 mg Documented by: Glucagon () 1 mg IM .X1 PRN PRN Reason: Hypoglycemia Metoprolol Succinate (Toprol Xl (Beta Rm)) 25 mg PO DAILY [facility] Last Admin: 10/12/19 09:31 Dose: 25 mg Documented by: Sodium Chloride () 10 - 40 ml IV UD PRN PRN Reason: SALINE FLUSH Last Admin: 10/11/19 21:49 Dose: 10 ml Documented by: Medical Necessity - Tobacco Use Smoking Status: Never smoker - Tried smoking for about one month while in high school. Assessment/Plan All Active Problems (Last Reviewed 10/11/19 @ 07:38 by Tio Schaefer MD) Atrial fibrillation with RVR (Acute) #1 paroxysmal atrial fibrillation-patient is currently in sinus rhythm, she remains on antiarrhythmic therapy per cardiology. #2 elevated TSH-I will order a T3-T4 level tomorrow morning Code Visit Inpatient E&M: 84246 Subs Hosp L2
[2019-10-13] VITALS (8 sets, daily range): BP systolic 96–120; BP diastolic 60–62; PULSE 72–87; RESP 16; TEMP 36.6–36.7; O2SAT 94–97
--- NOTE | 2019-10-13 05:55 | EKG12_ITS ---
Test Reason : AM EKG Blood Pressure : / mmHG Vent. Rate : 072 BPM Atrial Rate : 072 BPM P-R Int : 168 ms QRS Dur : 094 ms QT Int : 384 ms P-R-T Axes : 050 038 028 degrees QTc Int : 420 ms Normal sinus rhythm Normal ECG When compared with ECG of 11-OCT-2019 09:20, MANUAL COMPARISON REQUIRED, DATA IS UNCONFIRMED Confirmed by VINNIE CARTER ([id number]), editor newspaper ROSE KRUSE ([id number]) on 10/16/2019 11:36:10 AM Referred By: DR LOWERY Confirmed By:VINNIE CARTER
[2019-10-13 07:20] LABS: Free T3 2.6 pg/mL (2.18-3.98); T4 Free Direct 0.96 ng/dL (0.76-1.46)
--- NOTE | 2019-10-13 08:49 | PCM.PN.CARD ---
Subjectve: The patient is awake and alert. She has been taking oral intake. She has been up and ambulating in her room. She denies ongoing palpitations or rapid heart rate sensation. There is been no chest discomfort or difficulty breathing. She stated this morning she felt a little lightheaded and a little nauseated . She has had no emesis. Objective: Vital Signs Temp Pulse Resp BP Pulse Ox 98.1 F 76 16 96/60 95 10/13/19 03:05 10/13/19 06:50 10/13/19 03:05 10/13/19 03:05 10/13/19 07:45 Oxygen Flow Rate (L/min) 2 Oxygen Delivery Method Room Air Weight: 255 lb 1.197 oz Body Mass Index (BMI) 42.4 Intake and Output for Last 24 Hours 10/11/19 10/12/19 10/13/19 23:59 23:59 23:59 Intake Total 656.83 / 656.83 1914 200 / 200 Balance 656.83 / 656.83 1914 200 / 200 General: Awake, Alert, Oriented x 3, Cooperative, No Acute Distress, Obese HEENT: Atraumatic, Normocephalic, PERRL, EOMI, Sclera Non Icteric Oral: Moist Mucosa Neck: Supple, Good ROM, No JVD Lungs: Clear to auscultation Cardiovascular: Regular Rhythm, Normal S1, Normal S2 Abdomen: Bowel Sounds Present, Soft, Non Tender Extremities: No edema Neurological: No Focal Motor or Sensory Deficit Psych/Mental Status: Appropriate Rhythm: Sinus rhythm EKG: Sinus rhythm; no acute ECG changes Echocardiogram: Interpretation Summary Normal LV size. Left ventricular systolic function is normal. The estimated ejection fraction is 65 %. Normal diastology for age. Structurally normal valves. Medical Necessity - Tobacco Use Smoking Status: Never smoker - Tried smoking for about one month while in high school. Assessment/Plan 1. Paroxysmal atrial fibrillation The patient has returned to sinus rhythm. She is been on rate control therapy and anticoagulant therapy. She has been placed on antiarrhythmic therapy with flecainide/Tambocor. Thus far she has had no obvious adverse cardiac rhythm events or acute changes on her electric cardiogram. The tentative plan would be to continue rate control therapy, antiarrhythmic therapy, and anticoagulant therapy. The patient will need continued outpatient cardiovascular follow-up as deemed appropriate. Hopefully, if the patient appears to be symptomatically and hemodynamically stable as the day progresses, she will be considered stable for discharge home for continued outpatient follow-up. This note was generated using a voice recognition system and there may be incorrect words, spelling or punctuation that were not noted when reviewing the office note prior to saving.
[2019-10-13] MEDS: Metoprolol(XL)Succ 25 MG Tablet PO (09:54)
[2019-10-13] MEDS: Flecainide 100 MG Tablet PO (09:54)
[2019-10-13] MEDS: APIXABAN 5 MG TABLET PO (09:54)
--- NOTE | 2019-10-13 09:59 | NURSING ---
Ambulated patient in hallway. Did will. Reported some SOB but denied lightheadedness.
--- NOTE | 2019-10-13 11:11 | DCINST_ITS ---
- Discharge Diagnoses Current Active Problems: Current Active and Chronic Problems (Last Reviewed 10/11/19 @ 07:38 by Tio Schaefer MD) Atrial fibrillation with RVR (Acute) You will use the following diet at home:: Calorie/Carbohydrate Controlled (specify 1200, 1400, etc) Discharge Activity: Return to Normal Activity Call your doctor if you observe: Shortness of breath, Dizziness, Fainting spells, Chest pain, Increased palpitations (irregular heartbeat) Allergies/Adverse Reactions: Allergies Penicillins Allergy (Verified 10/11/19 04:48) Rash Medications to take at Discharge glucosamine HCl 750 mg tablet 750 mg PO BID 08/18/19 multivitamin capsule 1 cap PO DAILY 08/18/19 Apixaban [Eliquis] 5 mg PO BID #60 tab 10/13/19 Flecainide [Tambocor] 100 mg PO BID #60 tab 10/13/19 Metoprolol(XL)Succ [Toprol Xl (Beta Rm)] 25 mg PO DAILY #30 tab 10/13/19 The following prescriptions were given: Apixaban [Eliquis] 5 mg PO BID #60 tab Transmission Status: [id number] Flecainide [Tambocor] 100 mg PO BID #60 tab Transmission Status: [id number] Metoprolol(XL)Succ [Toprol Xl (Beta Rm)] 25 mg PO DAILY #30 tab Transmission Status: [id number] Primary Care Physician: Peter Bush MD [Primary Care Provider] - Please follow up with your Primary Care Physician in: 1 Week Test Results: Test results from this visit will be discussed in further detail at your follow- up appointment, if applicable. Please Follow Up With: Peewee Estes MD When: 1-2 Weeks, may see DRY CLEANING SUPERVISOR/PA Proposed Discharge Date: 10/13/19
--- NOTE | 2019-10-13 11:13 | DS.PCM_ITS ---
<Lisandra Braxton - Last Filed: 10/13/19 11:18> Discharge Date and Diagnosis Date of Admission: 10/11/19 Date of Discharge: 10/13/19 - Primary Discharge Diagnosis Active and Suspected Problems (Last Reviewed 10/11/19 @ 07:38 by Tio Schaefer MD) 1. Paroxysmal atrial fibrillation 2. Abnormal TSH, subclinical hypothyroidism 3. Obesity - Secondary Discharge Diagnosis Chronic Problems (Last Reviewed 10/11/19 @ 07:38 by Tio Schaefer MD) Paroxysmal A-fib (Chronic) Hospital Course and Treatment Imaging Results: Diagnostic Data Chest X-Ray 10/11/19 04:57 IMPRESSION: No acute cardiopulmonary disease. Electronically Signed: Perlita España MD at 5:35 EST , Service support , Dr. Chapin/Dr. Estes- Cardiology Operations: None Procedures: 2-D Echocardiogram Summary of Care Provided: The patient is a 43 year old F admitted on 10/11/2018 due to palpitations. 1. Paroxysmal atrial fibrillation-patient reports she was originally found to have paroxysmal atrial fibrillation in 2016 and has had intermittent episodes since that time. She was not previously on medication regimen. Placed on flecainide 100 mg twice daily and metoprolol XL 25 mg daily. Converted to sinus rhythm during admission. Initiated on Eliquis 5 mg twice daily. Echocardiogram demonstrated an EF of 65%. Follow-up with cardiology in 1 to 2 weeks. 2. Abnormal TSH, subclinical hypothyroidism-TSH 4.8. Free T3 and free T4 normal. Recommend repeat TSH in 4 to 6 weeks. 3. Obesity-encouraged diet and lifestyle modifications. General: Alert, Oriented x3, Cooperative, No apparent distress HEENT: Atraumatic, PERRLA, EOMI, Normocephalic Oral: Moist Mucosa Neck: Supple, Trachea Midline, Thyroid Normal Size and Texture Lungs: Clear to auscultation, Normal air movement Cardiovascular: Regular rate, Regular Rhythm, Normal S1, Normal S2, No murmurs Abdomen: Bowel Sounds Present, Soft, Non Tender, Non-Distended, No hernias noted Extremities: No clubbing, No cyanosis, No edema Skin: No rashes, No breakdown Musculoskeletal: No Tenderness to Palpation of Joints or Extremities Neurological: Cranial nerves II-XII grossly intact, Neuro grossly intact Psych/Mental Status: Normal Affect, Appropriate Patient seen and examined prior to discharge. Physical assessment as noted above. Patient is stable for discharge with follow up recommendations as noted above. This patient was seen by MIGUELANGEL Quintana under the supervision of Dr. Wolf. - Physical Exam Vitals/I&O's: Vital Signs Temp Pulse Resp BP Pulse Ox 97.8 F 81 16 117/62 94 10/13/19 09:05 10/13/19 11:00 10/13/19 09:05 10/13/19 09:54 10/13/19 09:05 Oxygen Flow Rate (L/min) 2 Oxygen Delivery Method Room Air Weight: 255 lb 1.197 oz Body Mass Index (BMI) 42.4 Intake and Output for Last 24 Hours 10/11/19 10/12/19 10/13/19 23:59 23:59 23:59 Intake Total 656.83 / 656.83 1914 200 / 200 Balance 656.83 / 656.83 1914 200 / 200 Laboratory Results 10/13/19 06:28: Free T4 0.96, Free T3 pg/dL 2.6 Current Medications Acetaminophen (Tylenol) 650 mg PO Q6H PRN PRN PRN Reason: Pain Score 1-3/Temp > 100.7 F Apixaban (Eliquis) 5 mg PO BID [facility] Last Admin: 10/13/19 09:54 Dose: 5 mg Documented by: Dextrose (D50w Syringe) 0 gm IV X1 PRN; Protocol PRN Reason: Hypoglycemia Flecainide Acetate (Tambocor) 100 mg PO BID [facility] Last Admin: 10/13/19 09:54 Dose: 100 mg Documented by: Glucagon () 1 mg IM .X1 PRN PRN Reason: Hypoglycemia Metoprolol Succinate (Toprol Xl (Beta Rm)) 25 mg PO DAILY [facility] Last Admin: 10/13/19 09:54 Dose: 25 mg Documented by: Sodium Chloride () 10 - 40 ml IV UD PRN PRN Reason: SALINE FLUSH Last Admin: 10/11/19 21:49 Dose: 10 ml Documented by: Discharge Diet: 1800 Calorie Control Diet Discharge Activity: Return to Normal Activity Call your doctor if you observe: Shortness of breath, Dizziness, Fainting spells, Chest pain, Increased palpitations (irregular heartbeat) Home Medications: Medications to take at Discharge glucosamine HCl 750 mg tablet 750 mg PO BID 08/18/19 multivitamin capsule 1 cap PO DAILY 08/18/19 Apixaban [Eliquis] 5 mg PO BID #60 tab 10/13/19 Flecainide [Tambocor] 100 mg PO BID #60 tab 10/13/19 Metoprolol(XL)Succ [Toprol Xl (Beta Rm)] 25 mg PO DAILY #30 tab 10/13/19 Following Prescrptions Were Given to Patient: Apixaban [Eliquis] 5 mg PO BID #60 tab Transmission Status: Received by [id number] Flecainide [Tambocor] 100 mg PO BID #60 tab Transmission Status: Received by [id number] Metoprolol(XL)Succ [Toprol Xl (Beta Rm)] 25 mg PO DAILY #30 tab Transmission Status: Received by [id number] Primary Care Physician: Peter Bush MD [Primary Care Provider] - Please follow up with your Primary Care Physician in: 1 Week Please Follow Up With: Peewee Estes MD When: 1-2 Weeks, may see EARLY MORNING BABYSITTER/PA Disposition: Home Minutes spent on discharge:: 35 Patient Condition:: Stable Medical Necessity - Tobacco Use Smoking Status: Never smoker - Tried smoking for about one month while in high school. Meaningful Use Info Meaningful Use Diagnoses (Choose all that apply): None applicable <Matt Wolf Ferny - Last Filed: 10/13/19 11:56> Discharge Date and Diagnosis - Secondary Discharge Diagnosis Chronic Problems (Last Reviewed 10/11/19 @ 07:38 by Tio Schaefer MD) Paroxysmal A-fib (Chronic) Hospital Course and Treatment Summary of Care Provided: Hospitalist note: Discharge summary above reviewed and I concur with the above discharge and treatment plan. Patient was admitted for palpitation and she was found to have new onset paroxysmal atrial fibrillation. She had no history of A. fib in the past and no history of CAD. Patient was started on IV Cardizem drip upon admission for rate control and then started on flecainide as well as metoprolol for rate control. Her troponin was negative. Her routine blood work was unremarkable. Her TSH was slightly elevated but free T4 and free T3 were normal. Chest x-ray showed no acute findings. Cardiology consulted and recommended to start patient on flecainide and low-dose metoprolol for rate control and Eliquis for anticoagulation. Patient's EKG was monitored every day after started on flecainide and there was no acute events on the EKG, QTC was not prolonged. 2D echocardiogram revealed ejection fraction of 65% and structurally normal heart valves. Serum electrolytes including sodium, potassium, calcium and magnesium were normal. Patient remained stable on flecainide and she remained sinus rhythm. Patient discharged home in a stable medical condition, discharged on flecainide and metoprolol for rate control, d ischarged on Eliquis for anticoagulation, plan to follow-up with cardiology in 1 to 2 weeks and follow-up with PCP in 1 week. - Physical Exam General: Alert, Oriented x3, Cooperative, No apparent distress. HEENT: Atraumatic, PERRLA, EOMI. Neck: Supple, No JVD, Negative Carotid Bruits, Trachea Midline, Thyroid Normal. Lungs: Clear to auscultation, Normal air movement, No rhonchi, No wheeze, No ra les. Cardiovascular: Regular rate, Regular Rhythm, Normal S1, Normal S2, PMI Normal. Abdomen: Bowel Sounds Present, Soft, Non Tender, Non-Distended, No Hepato- splenomegaly. Extremities: No clubbing, No cyanosis, No edema Skin: No rashes, No breakdown Neurological: Cranial nerves are intact, neuro grossly intact Vital Signs are stable. This note was generated with [employer] dictation software. It may contain incorrect words, spelling, and punctuation that were not noted in checking the note before signing. - Physical Exam Vitals/I&O's: Vital Signs Temp Pulse Resp BP Pulse Ox 98.1 F 80 16 120/61 96 10/13/19 11:38 10/13/19 11:38 10/13/19 11:38 10/13/19 11:38 10/13/19 11:38 Oxygen Flow Rate (L/min) 2 Oxygen Delivery Method Room Air Weight: 255 lb 1.197 oz Body Mass Index (BMI) 42.4 Intake and Output for Last 24 Hours 10/11/19 10/12/19 10/13/19 23:59 23:59 23:59 Intake Total 656.83 / 656.83 1914 600 / 600 Balance 656.83 / 656.83 1914 600 / 600 Laboratory Results 10/13/19 06:28: Free T4 0.96, Free T3 pg/dL 2.6 Current Medications Acetaminophen (Tylenol) 650 mg PO Q6H PRN PRN PRN Reason: Pain Score 1-3/Temp > 100.7 F Apixaban (Eliquis) 5 mg PO BID [facility] Last Admin: 10/13/19 09:54 Dose: 5 mg Documented by: Dextrose (D50w Syringe) 0 gm IV X1 PRN; Protocol PRN Reason: Hypoglycemia Flecainide Acetate (Tambocor) 100 mg PO BID [facility] Last Admin: 10/13/19 09:54 Dose: 100 mg Documented by: Glucagon () 1 mg IM .X1 PRN PRN Reason: Hypoglycemia Metoprolol Succinate (Toprol Xl (Beta Rm)) 25 mg PO DAILY [facility] Last Admin: 10/13/19 09:54 Dose: 25 mg Documented by: Sodium Chloride () 10 - 40 ml IV UD PRN PRN Reason: SALINE FLUSH Last Admin: 10/11/19 21:49 Dose: 10 ml Documented by: Disposition: Home Minutes spent on discharge:: 32 Patient Condition:: Stable Meaningful Use Info Meaningful Use Diagnoses (Choose all that apply): None applicable Code Visit Inpatient E&M: 58912 Disch Hosp
--- NOTE | 2019-10-13 11:56 | PHA.DC.MC ---
Pharmacy Service has performed discharge medication reconciliation and counseling for this patient. 1. APIXABAN 5 MG PO BID 2. FLECAINIDE 100MG PO BID 3. METOPROLOL SUCCINATE 25MG PO DAILY The patient's discharge medication list was reviewed for discrepancies and discrepancies were resolved. Home Medications glucosamine HCl 750 mg tablet 750 mg PO BID 08/18/19 multivitamin capsule 1 cap PO DAILY 08/18/19 Apixaban [Eliquis] 5 mg PO BID #60 tab 10/13/19 Flecainide [Tambocor] 100 mg PO BID #60 tab 10/13/19 Metoprolol(XL)Succ [Toprol Xl (Beta Rm)] 25 mg PO DAILY #30 tab 10/13/19 The patient was counseled on the following discharge medications and changes in medications for homegoing were reviewed. The Reason for Use, instructions for use, and potential side effects were reviewed for all new medications. The patient's questions regarding all of their medications were answered. The patient was able to verbally demonstrate an understanding of their discharge medications.
--- NOTE | 2019-10-13 13:01 | CASEMGMT ---
Pt to be sent home on Tambocor, Eliquis, and Metoprolol and meds e-scribed to pt's preferred pharmacy, [facility], previously. Call to Susan at [facility] and she states that the pt's out of pocket for meds is as follows: Eliquis $482.87, Tambocor $66.09, and Metoprolol $17.19. Pt updated on all at this time and provided with Goodrx prices at [facility] and [facility] and plans to transfer some of the meds at this time. This [facility] provided pt with a 30 day free Eliquis trial card and a $10 co-pay card(for later, if applicable) at this time. Pt aware to speak with surgeon chief regarding Eliquis script at later date, voices understanding. Pt/friend voice no further questions/concerns/needs at this time. [place]
== END 2019-10-13 13:04 | disposition home or self-care (01) | DRG 309 ==
LOC: ED 06:08 → PCU 07:18
PROVIDERS: Internal Medicine; Admitting Provider Hospitalist; Emergency Provider Emergency Medicine; Family Provider Internal Medicine; PCP Internal Medicine; Visit Provider Hospitalist
DX: I48.0 Paroxysmal atrial fibrillation (principal); Z68.41 Body mass index [BMI] 40.0-44.9, adult; E66.9 Obesity, unspecified; R94.6 Abnormal results of thyroid function studies; E02 Subclinical iodine-deficiency hypothyroidism
CPT/HCPCS: 36415; 71045; 80048; 83735; 84439; 84443; 84481; 84484; 85025; 93005; 93306; 99285; Q9957; A4216; C8929

== ENCOUNTER → 2019-11-04 15:56 | Outpatient (CLI) | payer OTHER, SELFPAY ==
[2019-11-04 13:22] VITALS: BMI 42.7
[2019-11-04 17:47] LABS: ALB/GLOB Ratio 0.9 RATIO (0.9-2.4); AST(SGOT) 32 U/L (15-37); Alanine Aminotransfer ALT/SGPT 52 U/L (13-56); Albumin, Serum 3.9 g/dL (3.2-5.0); Alkaline Phosphatase 53 U/L (45-117); Anion Gap 7 (5-15); BUN 13 mg/dL (7-18); BUN/Creat Ratio 16.7 RATIO (10-20); Chloride 107 mmol/L (98-107); Creatinine, Serum 0.78 mg/dL (0.55-1.02); EST Glomerular Filtration Rate 86 mL/min (>60); Est Glom Filt Rate - Afr Amer 104 mL/min (>60); Globulin 4.2 g/dL (2.2-4.2); Glucose 107 mg/dL (74-106); Potassium 3.9 mmol/L (3.5-5.1); Protein, Total 8.1 g/dL (6.4-8.2); Sodium Level 139 mmol/L (136-145)
== END ==
LOC: LAB 15:57
PROVIDERS: Family Provider Internal Medicine; PCP Internal Medicine; Referring Provider Physician Assistant Medical; Visit Provider Physician Assistant Medical
DX: I48.0 Paroxysmal atrial fibrillation (principal)
CPT/HCPCS: 36415; 80053

== ENCOUNTER → 2020-01-08 11:33 | Outpatient (CLI) | payer OTHER, SELFPAY ==
[2020-01-08 11:02] VITALS: BMI 42.7
[2020-01-08 13:34] LABS: T4 Free Direct 1.08 ng/dL (0.76-1.46)
== END ==
LOC: BIMLAB 11:36
PROVIDERS: PCP Internal Medicine; Referring Provider Internal Medicine; Visit Provider Internal Medicine
DX: I48.0 Paroxysmal atrial fibrillation (principal)
CPT/HCPCS: 36415; 84439; 84443

== ENCOUNTER → 2020-01-21 11:51 | Outpatient (CLI) | payer OTHER, SELFPAY ==
[2020-01-08 11:02] VITALS: BMI 42.7
--- NOTE | 2020-01-21 11:52 | RAD_ITS ---
STUDY: X-RAY - PELVIS AND RIGHT HIP REASON FOR EXAM: Female, 44 years old. CHRONIC HIP PAIN GETTING WORSE, NO INJURY TECHNIQUE: 3 views of the pelvis and hip. COMPARISON: None. FINDINGS: There is a non-specific bowel gas pattern. Normal visualized soft tissue structures. Normal bilateral iliac wings, sacroiliac joints and visualized sacrum. Normal bilateral superior and inferior pubic rami. Normal pubic symphysis. Normal bilateral ischial tuberosities. Normal visualized femoral head. Normal acetabulum. Normal hip joint. There is severe elevation of BMI. RAD/HIP, UNI W/ Pelvis 2-3 Views IMPRESSION: 1. Severely elevated BMI. 2. Normal right hip. Electronically Signed: Camden Collazo, at 19:47 EST Tel , Service support ,
== END ==
LOC: MTRAD 11:52
PROVIDERS: PCP Internal Medicine; Referring Provider Internal Medicine; Visit Provider Internal Medicine
DX: M25.551 Pain in right hip (principal); G89.29 Other chronic pain
CPT/HCPCS: 73502

== ENCOUNTER → 2020-02-02 10:53 | Outpatient (CLI) | payer OTHER, SELFPAY ==
[2020-01-08 11:02] VITALS: BMI 42.7
== END ==
LOC: SL 10:54
PROVIDERS: PCP Internal Medicine; Referring Provider Internal Medicine; Visit Provider Internal Medicine
DX: G47.10 Hypersomnia, unspecified (principal)
CPT/HCPCS: 95806

== ENCOUNTER → 2020-10-26 11:23 | Outpatient (CLI) | payer OTHER, SELFPAY | PROVIDERS: PCP Internal Medicine; Visit Provider Internal Medicine | DX: Z46.89 Encounter for fitting and adjustment of other specified devices (principal) ==

== ENCOUNTER → 2021-05-11 15:28 | Outpatient (CLI) | payer OTHER, SELFPAY ==
[2021-05-11 15:05] VITALS: BMI 42.0
--- NOTE | 2021-05-11 16:05 | RAD_ITS ---
STUDY: X-RAY - RIGHT WRIST REASON FOR EXAM: Female, 45 years old. Right Wrist Pain TECHNIQUE: 3 view(s) of the wrist were obtained. COMPARISON: Left wrist x-ray 11/30/2014. FINDINGS: Normal visualized distal radius and ulna. Normal radiocarpal articulation. Normal distal radioulnar articulation. Normal carpal bones. Normal carpal articulations. Normal carpometacarpal articulation of the thumb. Normal second through fifth carpometacarpal articulations. Normal visualized metacarpal bones. The soft tissue structures are unremarkable. RAD/Wrist min 3 Views IMPRESSION: Normal x-ray examination of the wrist. Electronically Signed: Emelia Casarez MD at 16:29 EDT Tel , Service support ,
[2021-05-11 16:52] LABS: Absolute Lymphocyte Count 1.86 X10^3/uL (0.83-4.51); Basophil# 0.03 X10^3/uL; Basophil% 0.5 % (0-1); Eosinophil# 0.21 X10^3/uL; Eosinophils% 3.2 % (0-5); Hematocrit 41.4 % (37-47); Hemoglobin 13.6 g/dL (12.0-15.0); Lymphocyte # 1.86 X10^3/ul (0.83-4.51); Lymphocyte % 28.6 % (19-41); Mean Corp Hgb Conc 32.9 g/dL (32-36); Mean Corpuscular Hgb 28.3 pg (27.0-32.0); Mean Corpuscular Volume 86.1 fL (81-99); Mean Platelet Vol. 9.8 fl (6.2-12.0); Monocyte# 0.44 X10^3/uL; Monocyte% 6.8 % (0-10); NRBC Flagged by Analyzer 0 % (0-5); Neutrophil # 3.95 X10^3/uL (2.7-7.7); Neutrophil % 60.7 % (47-70); Platelet Count 267 K/mm3 (150-450); RBC Distribution Width CV 13.7 % (11.6-14.6); RBC Distribution Width SD 42.6 fl (35.1-43.9); Red Blood Count 4.81 M/mm3 (4.2-5.4); White Blood Count 6.5 K/mm3 (4.4-11.0)
[2021-05-11 17:04] LABS: ALB/GLOB Ratio 0.9 RATIO (0.9-2.4); AST(SGOT) 43 U/L (15-37); Alanine Aminotransfer ALT/SGPT 69 U/L (13-56); Alkaline Phosphatase 59 U/L (45-117); Anion Gap 6 (5-15); BUN 14 mg/dL (7-18); BUN/Creat Ratio 20.4 RATIO (10-20); Calcium,Total 9.1 mg/dL (8.5-10.1); Chloride 103 mmol/L (98-107); Cholesterol 136 mg/dL (200); Creatinine, Serum 0.69 mg/dL (0.55-1.02); EST Glomerular Filtration Rate 98 mL/min (>60); Est Glom Filt Rate - Afr Amer 119 mL/min (>60); Globulin 4.5 g/dL (2.2-4.2); Glucose 123 mg/dL (74-106); High Density Lipoprotein 45 mg/dL; Potassium 4.2 mmol/L (3.5-5.1); Protein, Total 8.5 g/dL (6.4-8.2); Sodium Level 136 mmol/L (136-145); Triglycerides 300 mg/dL; Very Low Density Lipoprotein 60 mg/dL (5-40)
== END ==
PROVIDERS: PCP Internal Medicine; Referring Provider Internal Medicine; Visit Provider Internal Medicine
DX: M25.531 Pain in right wrist (principal); I48.0 Paroxysmal atrial fibrillation; G47.33 Obstructive sleep apnea (adult) (pediatric)
CPT/HCPCS: 36415; 73110; 80053; 80061; 85025

== ENCOUNTER 2021-08-18 15:16 | Outpatient (CLI) | payer OTHER, SELFPAY ==
[2021-08-18] MEDS: 0.9% Saline Lock 10 ML Syringe IV (15:40)
[2021-08-18 15:44] VITALS: BP 128/73; PULSE 83; RESP 16; TEMP 36.9; O2SAT 97; BMI 44.6
[2021-08-18 16:13] VITALS: BP 123/64; PULSE 84; RESP 16; TEMP 36.4; O2SAT 97
[2021-08-18 17:13] VITALS: BP 116/68; PULSE 80; RESP 16; TEMP 36.6; O2SAT 97
== END 2021-08-18 17:17 | disposition home or self-care (01) ==
LOC: ICUOUT 15:16 → ICU 15:17
PROVIDERS: PCP Internal Medicine; Referring Provider Nurse Practitioner Family; Visit Provider Nurse Practitioner Family
DX: Z23 Encounter for immunization (principal); U07.1 COVID-19
CPT/HCPCS: J7050; M0243; A4216; Q0244

== ENCOUNTER → 2021-10-10 | Outpatient (CLI) | payer OTHER, SELFPAY | END | disposition home or self-care (01) | LOC: LABSPEC 09:40 | PROVIDERS: PCP Internal Medicine; Referring Provider Nurse Practitioner Family; Visit Provider Nurse Practitioner Family | DX: J06.9 Acute upper respiratory infection, unspecified (principal); R59.1 Generalized enlarged lymph nodes | CPT/HCPCS: 87635; U0005; U0003 ==

== ENCOUNTER → 2021-10-12 14:45 | Outpatient (CLI) | payer OTHER, SELFPAY ==
--- NOTE | 2021-10-12 14:49 | US_ITS ---
STUDY: US Upper Extremity, limited, joint or other nonvascular extremity - Left REASON FOR EXAM: Female, 45 years old. left axillary lymphadenopathy TECHNIQUE: A superficial ultrasound was performed with real-time and static ramos-scale imaging. COMPARISON: None. FINDINGS: There is no fluid collection. There is no abscess. There is left axillary cystic areas measuring 3 x 4 x 3 mm and 2 x 2 x 2 mm. This is within the subcutaneous fat . US/Ext Non Vasc Limited/Soft Tiss IMPRESSION: Subcutaneous nodules are noted. These may represent granulomas, sebaceous cyst, sequale of previous trauma. Electronically Signed: Nikko Salazar MD at 15:30 EST , Service support ,
== END ==
PROVIDERS: PCP Internal Medicine; Referring Provider Nurse Practitioner Family; Visit Provider Nurse Practitioner Family
DX: R59.0 Localized enlarged lymph nodes (principal)
CPT/HCPCS: 76882

== ENCOUNTER → 2021-11-29 07:20 | Outpatient (CLI) | payer OTHER, SELFPAY ==
--- NOTE | 2021-11-29 07:22 | BI_ITS ---
MAMMOGRAPHY - BILATERAL SCREENING 3-D TOMOSYNTHESIS REASON FOR EXAM: Female, 45 years old. screening PERTINENT HISTORY: No significant family history. TECHNIQUE: 2-D mammograms and 3-D Tomosynthesis of the breast (s) were performed. CAD was performed. COMPARISON: 02/10/2013 FINDINGS: The breast composition is composed of scattered fibroglandular density. Scattered benign calcifications are seen. No dense spiculated masses or suspicious microcalcifications are identified. No architectural distortion is identified. There is no skin thickening or retraction. There has been no significant change since the prior study. BI/SCRN MAMM (CAD)W/CHRISTINE BILAT IMPRESSION: No mammographic signs of malignancy. Routine yearly mammograms recommended. ASSESSMENT CATEGORY: BIRADS Category 1: Negative. A letter regarding these results will be sent to the patient by the facility within 30 days. FOLLOW UP RECOMMENDATION: Yearly follow up mammogram recommended. (A) Approximately 10% of breast cancers are not detected by mammography. A normal mammogram should not delay biopsy of a clinically suspicious abnormality. Electronically Signed: Esvin Almodovar MD at 9:08 EST Tel , Service support ,
== END ==
PROVIDERS: PCP Internal Medicine; Referring Provider Nurse Practitioner Family; Visit Provider Nurse Practitioner Family
DX: Z12.31 Encounter for screening mammogram for malignant neoplasm of breast (principal)
CPT/HCPCS: 77063; 77067

== ENCOUNTER 2022-02-24 14:56 | Emergency (ER) | payer OTHER, SELFPAY ==
[2022-02-24 14:57] VITALS: BP 149/115; PULSE 130; RESP 14; TEMP 36; O2SAT 95; BMI 45.9
--- NOTE | 2022-02-24 15:06 | EDS_ITS ---
HPI History of Present Illness Chief Complaint: Palpitations Detail of Chief Complaint: A. fib with a maximum heart rate of 190 Informant: patient Onset/Context/Timing Onset: Hours (Duration 1 hour) Context: Sudden Onset Timing: Intermittent (States is no longer present.) Current Severity: Gone Maximum Severity: Severe Worsened by: History of paroxysmal atrial fibrillation Relieved by: Nothing Associated Symptoms Associated Symptoms: Shortness of breath, palpitations, nausea, diaphoresis and discomfort Narrative Narrative: Patient is a 46-year-old morbidly obese female with history of paroxysmal atrial fibrillation. She discontinued taking the metoprolol or flecainide on her own. One of the meds was discontinued by her extended insurance clerk Dr. Quincy Chapin. She discontinued taking anticoagulant because of cost. She was told by her doctor that she could take aspirin. She denies history of VTE. She denies leg pain, swelling or discoloration. She denies any symptoms presently. She denies fever, chills night sweats. She denies weight loss. She states she is undergoing work-up for weight reduction surgery. She denies GI symptoms. She denies urologic symptoms. She denies leg pain, swelling or discoloration. Patient states she had several episodes of A. fib over the last couple of years. She states that that the duration was never longer than 5 minutes. The duration of this episode lasted an hour and reason she presented to the emergency department. She states she has had a stress test in the past. She is never had a cardiac catheterization. Prior similar symptoms: Yes Recent Illness/Hospitalization: No PFSH PFS Medical History Atrial fibrillation with RVR (09/2019) Carpal tunnel syndrome Chronic back pain Chronic cough COVID-19 (08/16/21) History of blood transfusion Lymphadenopathy Morbid obesity Obesity Obstructive sleep apnea Paroxysmal A-fib (09/2019) Preoperative evaluation to rule out surgical contraindication URI (upper respiratory infection) Wrist pain, right Home Medications aspirin 81 mg tablet,delayed release 81 mg PO DAILY 01/08/20 [History Last Taken Unknown] metoprolol tartrate 25 mg PO BID #60 tab 02/24/22 [Rx Last Taken Unknown] Allergy/AdvReac Type Severity Reaction Status Date / Time Penicillins Allergy Rash Verified 02/24/22 14:57 Family History Father Diabetes Mother Cancer ovarian and thyroid Grandmother Dementia Other Arthritis Mental problems Surgical History History of bunionectomy History of cholecystectomy History of tubal ligation Social History (Updated 02/24/22 @ 15:[address] Dani Belle MD) household members: significant other alcohol intake: never substance use type: does not use what type of physical activity do you participate in: none ROS ROS ED Constitutional Constitutional ED: Denies chills, fever(s), subjective, sweats or weight loss Eyes Eyes: Denies blurry vision, change in vision or diplopia ENT ENT ED: Reports rhinorrhea and other Details: She attributes the rhinorrhea to being out in the cold. ; Denies ear pain or sore throat Cardiovascular Cardiovascular: Reports chest pain, palpitations and racing heartbeat; Denies orthopnea or paroxysmal nocturnal dyspnea Respiratory/Chest Respiratory/Chest: Reports dyspnea; Denies cough, dyspnea on exertion, orthopnea, paroxysmal nocturnal dyspnea or sputum Gastrointestinal Gastrointestinal: Reports nausea; Denies abdominal pain, constipation, diarrhea, melena or vomiting Genitourinary Genitourinary ED: Denies dysuria, hematuria or urinary frequency Musculoskeletal Musculoskeletal: Denies arthralgias, back pain, myalgias or neck pain Integumentary Denies rash Neurologic Neurologic: Denies headache(s), paresthesias or weakness EXAM Physical Exam Const Vital Signs: 02/24/22 14:57 Temperature 96.8 F L Temperature Source Temporal Pulse Rate 130 H Respiratory Rate 14 Blood Pressure 149/115 H Blood Pressure Mean 126 Pulse Ox 95 Oxygen Delivery Method Room Air Positive well nourished, well developed and obese General Appearance ED: well developed and NAD; Negative for cyanotic, diaphoretic or pallor Nutritional Appearance: obese HEENT Reports moist mucous membranes HEENT Narrative: Ears normal. Nares patent. Negative for trauma or tenderness Eyes PERRL and EOMs intact bilaterally Eyes Narrative: There is no nystagmus. General Eye ED: Negative for pale conjunctiva or scleral icterus Neck no lymphadenopathy, supple and no JVD Chest Wall inspection of chest normal and palpation of chest normal Resp normal respiratory effort and clear to auscultation bilaterally Cardio regular rhythm, S1 normal heart sound, S2 normal heart sound and no murmurs Rate: tachycardic GI normal to inspection, nondistended, normoactive bowel sounds, non-tender and non-distended Palpation: soft Back/Spine no CVA tenderness Extremity Extremity Narrative: There is no asymmetry, swelling, discoloration, leg vein distention, palpable cords or tenderness along the distribution of the deep venous system. Neuro oriented x3, CN's II-XII intact bilaterally and no sensory deficits noted Sensorium / Orientation: alert Motor Exam: strength 5/5 throughout Psych mental status grossly normal Skin no rashes or lesions noted, no wounds and skin turgor normal General Skin Exam: Negative for jaundice or pallor MDM MDM MDM Narrative Medical decision making narrative: Patient presents with paroxysmal atrial fib that lasted longer than normal. Will obtain EKG and basic blood work to evaluate for electrode abnormality, renal function and CBC to evaluate for anemia. EKG reveals sinus tachycardia. Will review prior records and probably start on beta-sonam. Per last cardiovascular office visit note patient is on aspirin and beta- sonam. Since she is tachycardic will start on beta-sonam. She received an IV dose since she is tachycardic. Lab Data Attestation: I reviewed the patient's lab results. Lab results narrative: Blood sugar is elevated. This indicates patient has mild diabetes. Labs: Laboratory Results - last 24 hr 02/24/22 02/24/22 15:20 15:20 WBC 7.3 RBC 4.52 Hgb 13.3 Hct 38.6 MCV 85.4 MCH 29.4 MCHC 34.5 RDW Std Deviation 42.3 RDW Coeff of Salome 13.6 Plt Count 227 MPV 9.7 Sodium 137 Potassium 3.8 Chloride 105 Carbon Dioxide 26.0 Anion Gap 6 BUN 13 Creatinine 0.80 Estim Creat Clear Calc 75.88 Est GFR (MDRD) Af Amer 100 Est GFR (MDRD) Non-Af 83 BUN/Creatinine Ratio 16.4 Glucose 191 H Calcium 9.3 EKG Initial EKG: Attestation: I personally reviewed and interpreted this EKG as follows: Interpretation: Sinus Tachycardia (Ventricular rate 111. The EKG other than sinus tach is unremarkable. MT interval is 142 ms. QS duration 88 ms. QT durations are 38 ms. [place] is normal.) Discharge Plan Triage Chief Complaint: Palpitations ED Provider: Dani Belle Dx/Rx/DC Orders Clinical Impression: Paroxysmal A-fib, Sinus tachycardia, Acute hyperglycemia Instructions: ED AFIB, ED Hyperglycemia New Susp Diabetes Prescriptions: New metoprolol tartrate 25 mg tablet 25 mg PO BID Qty: 60 RF: 0 No Action aspirin 81 mg tablet,delayed release (DR/EC) 81 mg PO DAILY RF: 0 Primary Care Provider: Peter Bush Referrals: Quincy Chapin MD [STAFF PHYSICIAN] - 1 Week Peter Bush MD [Primary Care Provider] - 1 Week Disposition Disposition: Home, Self Care
--- NOTE | 2022-02-24 15:06 | EKG12_ITS ---
Test Reason : Blood Pressure : / mmHG Vent. Rate : 111 BPM Atrial Rate : 111 BPM P-R Int : 142 ms QRS Dur : 088 ms QT Int : 338 ms P-R-T Axes : 063 026 039 degrees QTc Int : 459 ms Sinus tachycardia Otherwise normal ECG Confirmed by PAT IRELAND, SHANNON ([id number]), deputy editor in chief ZECHARIAH NORIEGA ([id number]) on 02/27/2022 10:44:44 AM Referred By: DEREK Confirmed By:SHANNON STEWART MD
[2022-02-24 15:35] LABS: Hematocrit 38.6 % (37-47); Hemoglobin 13.3 g/dL (12.0-15.0); Mean Corp Hgb Conc 34.5 g/dL (32-36); Mean Corpuscular Hgb 29.4 pg (27.0-32.0); Mean Corpuscular Volume 85.4 fL (81-99); Mean Platelet Vol. 9.7 fl (6.2-12.0); Platelet Count 227 K/mm3 (150-450); RBC Distribution Width CV 13.6 % (11.6-14.6); RBC Distribution Width SD 42.3 fl (35.1-43.9); Red Blood Count 4.52 M/mm3 (4.2-5.4); White Blood Count 7.3 K/mm3 (4.4-11.0)
[2022-02-24 15:48] LABS: Anion Gap 6 (5-15); BUN 13 mg/dL (7-18); BUN/Creat Ratio 16.4 RATIO (10-20); Calcium,Total 9.3 mg/dL (8.5-10.1); Chloride 105 mmol/L (98-107); EST Glomerular Filtration Rate 83 mL/min (>60); Est Glom Filt Rate - Afr Amer 100 mL/min (>60); Estimated Creatinine Clearance 75.88 ml/min; Glucose 191 mg/dL (74-106); Potassium 3.8 mmol/L (3.5-5.1); Sodium Level 137 mmol/L (136-145)
[2022-02-24 15:58] VITALS: BP 124/69; PULSE 105; RESP 16; O2SAT 100
[2022-02-24] MEDS: Metoprolol Tartrate 5 MG/5 ML Vial IV (16:00)
[2022-02-24 16:53] VITALS: BP 112/69; PULSE 94; RESP 20; O2SAT 94
== END 2022-02-24 16:54 | disposition home or self-care (01) ==
PROVIDERS: Emergency Provider Emergency Medicine; PCP Internal Medicine; Visit Provider Emergency Medicine
DX: I48.0 Paroxysmal atrial fibrillation (principal); E66.01 Morbid (severe) obesity due to excess calories; R06.02 Shortness of breath; R73.9 Hyperglycemia, unspecified; R11.0 Nausea; G47.33 Obstructive sleep apnea (adult) (pediatric); M54.9 Dorsalgia, unspecified; G89.29 Other chronic pain; Z79.82 Long term (current) use of aspirin
CPT/HCPCS: 80048; 85027; 93005; 96374; 99284; A4216

== ENCOUNTER 2023-01-24 09:48 | Outpatient (RCR) | payer OTHER, SELFPAY | END 2023-01-29 23:59 | LOC: DC 09:48 | PROVIDERS: PCP Internal Medicine; Referring Provider Nurse Practitioner Family; Visit Provider Nurse Practitioner Family | DX: E11.9 Type 2 diabetes mellitus without complications (principal) | CPT/HCPCS: G0108 ==

== ENCOUNTER 2023-02-14 09:00 | Outpatient (RCR) | payer OTHER, SELFPAY | END 2023-03-01 23:59 | LOC: DC 09:00 | PROVIDERS: PCP Internal Medicine; Referring Provider Nurse Practitioner Family; Visit Provider Nurse Practitioner Family | DX: E11.9 Type 2 diabetes mellitus without complications (principal) | CPT/HCPCS: 97802; G0108; G0109 ==

== ENCOUNTER → 2023-02-15 | Outpatient (CLI) | payer OTHER, SELFPAY ==
[2023-02-15 09:19] LABS: Absolute Lymphocyte Count 1.61 X10^3/uL (0.83-4.51); Absolute Neutrophil Count 3.5 X10^3/uL (2.0-7.7); Basophil# 0.03 X10^3/uL; Basophil% 0.5 % (0-1); Eosinophil# 0.11 X10^3/uL; Eosinophils% 1.9 % (0-5); Hematocrit 38.8 % (37-47); Hemoglobin 12.9 g/dL (12.0-15.0); Lymphocyte # 1.61 X10^3/ul (0.83-4.51); Lymphocyte % 27.7 % (19-41); Mean Corp Hgb Conc 33.2 g/dL (32-36); Mean Corpuscular Hgb 28.2 pg (27.0-32.0); Mean Corpuscular Volume 84.7 fL (81-99); Mean Platelet Vol. 9.9 fl (6.2-12.0); Monocyte# 0.55 X10^3/uL; Monocyte% 9.5 % (0-10); NRBC Flagged by Analyzer 0 % (0-5); Neutrophil % 60.2 % (47-70); Platelet Count 232 K/mm3 (150-450); RBC Distribution Width CV 13.9 % (11.6-14.6); RBC Distribution Width SD 43.1 fl (35.1-43.9); Red Blood Count 4.58 M/mm3 (4.2-5.4); White Blood Count 5.8 K/mm3 (4.4-11.0)
[2023-02-15 09:33] LABS: Microalbumin,Random Urine 7.8 mg/L (NO RANGE EST.); Microalbumin:Creatinine Ratio 14.2 mg/g CRE (<30 mg/g CRE)
[2023-02-15 09:54] LABS: AST(SGOT) 41 U/L (15-37); Alanine Aminotransfer ALT/SGPT 74 U/L (13-56); Albumin, Serum 4.1 g/dL (3.2-5.0); Alkaline Phosphatase 50 U/L (45-117); Anion Gap 6 (5-15); BUN 14 mg/dL (7-18); BUN/Creat Ratio 20.6 RATIO (10-20); Calcium,Total 9.7 mg/dL (8.5-10.1); Chloride 106 mmol/L (98-107); Cholesterol 109 mg/dL (200); Creatinine, Serum 0.68 mg/dL (0.55-1.02); EST Glomerular Filtration Rate 99 mL/min (>60); Est Glom Filt Rate - Afr Amer 119 mL/min (>60); Globulin 4.2 g/dL (2.2-4.2); Glucose 103 mg/dL (74-106); High Density Lipoprotein 43 mg/dL; Potassium 3.9 mmol/L (3.5-5.1); Protein, Total 8.3 g/dL (6.4-8.2); Sodium Level 137 mmol/L (136-145); Thyroid Stim Hormone (TSH) 2.49 uIU/mL (0.358-3.74); Triglycerides 93 mg/dL; Very Low Density Lipoprotein 19 mg/dL (5-40)
== END | disposition home or self-care (01) ==
LOC: BIMLAB 08:29
PROVIDERS: PCP Internal Medicine; Visit Provider Nurse Practitioner Family
DX: E11.9 Type 2 diabetes mellitus without complications (principal)
CPT/HCPCS: 36415; 80053; 80061; 82043; 82570; 84443; 85025

== ENCOUNTER → 2023-02-26 | Outpatient (CLI) | payer OTHER, SELFPAY ==
--- NOTE | 2023-02-26 09:31 | BI_ITS ---
MAMMOGRAPHY - BILATERAL DIAGNOSTIC REASON FOR EXAM: Female, 47 years old. Left axillary adenopathy. PERTINENT HISTORY: Non-contributory. TECHNIQUE: Digital bilateral breast gabriela (3D mammographic acquisition) in the CC and MLO projections. 2-D mediolateral oblique (MLO) and craniocaudad (CC) views of both breasts were obtained. CAD: Full Field Digital Mammography with Computer Added Detection was performed. COMPARISON: Comparison is made with prior study dated November 29, 2021. FINDINGS: Breast Composition: There are scattered areas of fibroglandular density. There are no dominant masses or suspicious calcifications. No other significant abnormalities are identified. There has been no significant change since the prior study. BI/DIAG MAMM W/CAD, BILAT IMPRESSION: Stable bilateral diagnostic mammogram. With the patient''s history of a left axillary adenopathy. Correlation with ultrasound is recommended. ASSESSMENT CATEGORY: BIRADS Category 0: Incomplete. Need additional imaging evaluation. A letter regarding these results will be sent to the patient by the facility within 30 days. Approximately 10% of breast cancers are not detected by mammography. A normal mammogram should not delay biopsy of a clinically suspicious abnormality. Electronically Signed: Farhad Ornelas MD at 12:36 EDT ,
--- NOTE | 2023-02-26 09:31 | US_ITS ---
STUDY: ULTRASOUND BREAST - LEFT REASON FOR EXAM: Female, 47 years old. Bilateral axillary lumps. TECHNIQUE: Axial and longitudinal images of the LEFT breast were performed with a high resolution ultrasound transducer. # OF IMAGES: 66 COMPARISON: Comparison is made with prior mammogram done earlier in the day. FINDINGS: LEFT Breast: Sonographic imaging of the left axilla was performed. No sonographic abnormality is seen. IMPRESSION: No sonographic abnormality is seen. ASSESSMENT CATEGORY: BIRADS Category 1: Negative. A letter regarding these results will be sent to the patient by the facility within 30 days. Electronically Signed: Farhad Ornelas MD at 10:45 EDT , STUDY: ULTRASOUND BREAST - RIGHT REASON FOR EXAM: Female, 47 years old. Bilateral axillary lumps. TECHNIQUE: Axial and longitudinal images of the RIGHT breast were performed with a high resolution ultrasound transducer. # OF IMAGES: 66 COMPARISON: Comparison is made with prior mammogram done earlier today. FINDINGS: RIGHT Breast: Sonographic imaging of the right axilla was performed. There is evidence of a 1.6 cm x 1.3 cm x 0.7 cm benign-appearing lymph node. US/Breast Limited Unilateral IMPRESSION: The palpable lump corresponds to a 1.6 cm x 1.3 cm x 0.7 cm benign appearing lymph node. ASSESSMENT CATEGORY: BIRADS Category 2: Benign. A letter regarding these results will be sent to the patient by the facility within 30 days. Electronically Signed: Farhad Ornelas MD at 10:47 EDT ,
== END | disposition home or self-care (01) ==
PROVIDERS: PCP Internal Medicine; Referring Provider Nurse Practitioner Family; Visit Provider Nurse Practitioner Family
DX: R59.9 Enlarged lymph nodes, unspecified (principal)
CPT/HCPCS: 76642; 77062; 77066; G0279

== ENCOUNTER 2023-03-06 09:00 | Outpatient (RCR) | payer OTHER, SELFPAY | END 2023-03-31 23:59 | LOC: DC 09:00 | PROVIDERS: PCP Internal Medicine; Referring Provider Nurse Practitioner Family; Visit Provider Nurse Practitioner Family | DX: E11.9 Type 2 diabetes mellitus without complications (principal) | CPT/HCPCS: 97803; G0108 ==

== ENCOUNTER 2023-04-04 08:27 | Outpatient (RCR) | payer OTHER, SELFPAY | END 2023-05-01 23:59 | LOC: DC 08:27 | PROVIDERS: PCP Internal Medicine; Referring Provider Nurse Practitioner Family; Visit Provider Nurse Practitioner Family | DX: E11.9 Type 2 diabetes mellitus without complications (principal) ==

== ENCOUNTER → 2023-04-18 | Outpatient (CLI) | payer OTHER, SELFPAY ==
[2023-04-18 13:15] LABS: AST(SGOT) 21 U/L (15-37); Alanine Aminotransfer ALT/SGPT 42 U/L (13-56); Alkaline Phosphatase 50 U/L (45-117); Anion Gap 7 (5-15); BUN 18 mg/dL (7-18); BUN/Creat Ratio 28.2 RATIO (10-20); Calcium,Total 9.8 mg/dL (8.5-10.1); Chloride 106 mmol/L (98-107); Creatinine, Serum 0.64 mg/dL (0.55-1.02); EST Glomerular Filtration Rate 106 mL/min (>60); Est Glom Filt Rate - Afr Amer 128 mL/min (>60); Glucose 112 mg/dL (74-106); Potassium 4.8 mmol/L (3.5-5.1); Sodium Level 139 mmol/L (136-145)
== END | disposition home or self-care (01) ==
LOC: BIMLAB 10:10
PROVIDERS: PCP Internal Medicine; Referring Provider Nurse Practitioner Family; Visit Provider Nurse Practitioner Family
DX: R79.89 Other specified abnormal findings of blood chemistry (principal)
CPT/HCPCS: 36415; 80053

== ENCOUNTER 2023-04-28 10:26 | Emergency (ER) | payer OTHER, SELFPAY ==
[2023-04-28 10:27] VITALS: BP 126/61; PULSE 67; RESP 18; TEMP 36.2; O2SAT 97; BMI 34.1
--- NOTE | 2023-04-28 11:01 | CT_ITS ---
STUDY: CT ABDOMEN AND PELVIS WITHOUT CONTRAST REASON FOR EXAM: Female, 47 years old. Pain RADIATION DOSAGE (If Supplied By Facility): CTDIvol = ( 16.99 ) mGy, DLP = ( 904.09 ) mGycm TECHNIQUE: Transaxial images were obtained from the dome of the diaphragm to the symphysis pubis without oral contrast, and without intravenous contrast. Sagittal and coronal images were reconstructed. Individualized dose optimization techniques were used for this CT. COMPARISON: None. FINDINGS: There are multiple, greater than 10, small lower lung pulmonary nodules, measuring less than 1.0 cm. The visualized portions of the heart are within normal limits. There is hepatomegaly with diffuse hepatic enlargement. There are surgical clips in the gallbladder fossa consistent with a prior cholecystectomy. Normal spleen. Normal pancreas. Normal bilateral adrenal glands. Normal right kidney. Normal left kidney. Normal visualized stomach. Normal small intestine. Normal colon. There is abundant stool. The appendix is visualized and appears normal. Normal abdominal aorta. Normal inferior vena cava. Normal retroperitoneum. Normal urinary bladder. Normal visualized uterus. There is 6.8 and 3.6 cm right adnexal cysts. Normal abdominal wall. There is degenerative change of the spine and hips. CT/Abdomen/Pelvis without Cont IMPRESSION: Right adnexal cysts. Hepatomegaly. No biliary dilatation. Multiple pulmonary nodules suggesting metastatic disease versus inflammatory process. Dedicated CT of the chest recommended to further evaluate nodules. Electronically Signed: Anshu Conklin MD at 12:42 EDT ,
--- NOTE | 2023-04-28 11:02 | ED.VIS.GI ---
HPI HPI - GI History of Present Illness Chief Complaint: Abd Pain Detail of Chief Complaint: Abdominal pain Informant: patient Abdominal Pain/Flank Pain Onset: Today Narrative Narrative: Patient presents to the emergency department with complaint of abdominal pain that started this morning around 6 AM. Initially was not as severe but progressively became more severe and currently rates the pain a 10 out of 10. She states that she has had nausea and vomiting x2. She denies urinary symptoms of urgency or frequency or hematuria. Patient states that maybe 12 or 13 years ago she had similar pain and no etiology was found. Patient's had a cholecystectomy. She still has her appendix. She is not had any fever. She denies diarrhea. She denies blood in her stool or black tarry stool. Prior similar symptoms: Yes PFSH PFS Medical History (Updated 04/28/23 @ 15:[address] Aroldo Perez, DO) Atrial fibrillation with RVR (09/2019) Carpal tunnel syndrome Chronic back pain Chronic cough COVID-19 (08/16/21) Elevated LFTs History of blood transfusion Intertrigo Lymphadenopathy Morbid obesity Obesity Obstructive sleep apnea Paroxysmal A-fib (09/2019) Preoperative evaluation to rule out surgical contraindication Type 2 diabetes mellitus URI (upper respiratory infection) Wrist pain, right Home Medications aspirin 81 mg tablet,delayed release 81 mg PO DAILY 01/08/20 [History Last Taken Unknown] albuterol sulfate 90 mcg/actuation aerosol inhaler gm inhalation 02/15/23 [History Last Taken Unknown] ondansetron 4 mg disintegrating tablet 4 mg PO Q8H PRN nausea and vomiting #30 tabs 02/15/23 [Rx Last Taken Unknown] nystatin 100,000 unit/gram topical powder 1 applic topical BID #60 grams 04/18/23 [Rx Last Taken Unknown] semaglutide 1 mg/dose (4 mg/3 mL) subcutaneous pen injector (Ozempic) See Rx Instructions .Route .COMPLEX #3 mL 04/19/23 [Rx Last Taken Unknown] hydrocodone-acetaminophen 5-325mg 5mg-325mg 1 tab PO Q4H PRN PRN Pain 2 days #10 TABLETS 04/28/23 [Rx Last Taken Unknown] sulfamethoxazole 800 mg-trimethoprim 160 mg tablet (Bactrim DS) 1 tab PO BID #14 tabs 04/28/23 [Rx Last Taken Unknown] Allergy/AdvReac Type Severity Reaction Status Date / Time Penicillins Allergy Rash Verified 04/28/23 10:30 Family History Father Diabetes Mother Cancer ovarian and thyroid Grandmother Dementia Other Arthritis Mental problems Surgical History History of bunionectomy History of cholecystectomy History of tubal ligation Social History household members: significant other Smoking Status: Never smoker alcohol intake: never substance use type: does not use what type of physical activity do you participate in: none ROS ROS ED Review of Systems ROS Unobtainable: other Constitutional Constitutional ED: Reports lethargy; Denies chills, fever(s), sweats or weight loss Eyes Eyes: Denies blurry vision, change in vision or diplopia ENT ENT ED: Denies rhinorrhea or sore throat Cardiovascular Cardiovascular: Denies chest pain, orthopnea or racing heartbeat Respiratory/Chest Respiratory/Chest: Denies cough, dyspnea, dyspnea on exertion, orthopnea or sputum Gastrointestinal Gastrointestinal: Reports abdominal pain, nausea and vomiting; Denies diarrhea Genitourinary Genitourinary ED: Denies dysuria, hematuria or urinary frequency Musculoskeletal Musculoskeletal: Denies arthralgias, back pain, myalgias or neck pain Integumentary Denies abscess, Abrasions or rash Neurologic Neurologic: Denies headache(s) or weakness Psychiatric Psychiatric: Denies anxiety, depression or suicidal thoughts Endocrine Endocrinology: Denies polydipsia, polyphagia or polyuria Hematologic/Lymphatic Hematologic/Lymphatic: Denies easy bleeding, easy bruising or lymphadenopathy Allergic/Immunologic Allergic/Immunologic ED: Denies mouth swelling, tongue swelling or urticaria EXAM Physical Exam Const Vital Signs: 04/28/23 10:27 04/28/23 14:00 Temperature 97.2 F L Temperature Source Temporal Pulse Rate 67 63 Respiratory Rate 18 16 Blood Pressure 126/61 H 107/62 Blood Pressure Mean 82 77 Pulse Ox 97 98 Oxygen Delivery Method Room Air Room Air Positive well nourished and well developed General Appearance ED: well developed and NAD HEENT Reports TM's clear and moist mucous membranes normocephalic and atraumatic; Negative for trauma or tenderness Tympanic Membrane ED: Yes TM's clear Eyes PERRL and EOMs intact bilaterally General Eye ED: Negative for pale conjunctiva or scleral icterus Neck no lymphadenopathy, supple and no JVD General: Negative for tenderness Chest Wall inspection of chest normal and palpation of chest normal Chest: Negative for tenderness Resp normal respiratory effort and clear to auscultation bilaterally Effort and Inspection: Negative for respiratory distress or pain with movement Auscultation: Negative for rhonchi, wheezes or diminished lung sounds Cardio regular rate, regular rhythm, S1 normal heart sound, S2 normal heart sound and no murmurs Peripheral Pulses: pulses 2+ throughout GI normal to inspection, nondistended, normoactive bowel sounds, soft to palpation, non-distended and no masses GI Narrative: Tenderness to palpation over the right lower quadrant and right side of the abdomen diffusely. There is mild guarding. There is no rebound, rigidity, or pedal signs. There are some mild CVA tenderness on the right. Back/Spine no thoracic nor lumbar tenderness Back/Spine Narrative: Mild CVA tenderness on the right. Extremity normal to inspection General Extremety ED: Negative for edema General Extremity: Negative for edema Neuro oriented x3, CN's II-XII intact bilaterally, no sensory deficits noted and gait normal Sensorium / Orientation: awake, alert, oriented to person, oriented to place and oriented to time Motor Exam: strength 5/5 throughout and strength abnormal Psych mental status grossly normal Skin no rashes or lesions noted and no wounds MDM MDM MDM Narrative Medical decision making narrative: Patient presents with right lower abdominal pain since 6 AM. In the differential would be kidney stone versus appendicitis versus bowel obstruction versus UTI or other etiology. IV established on arrival. Patient was medicated with Toradol as well as morphine and Zofran. Patient had a CBC with differential showed a white count 6.5 with hemoglobin of 13.5 and platelet count of 199. Chemistries unremarkable. LFTs were unremarkable. Lactate was normal at 1.0 urinalysis positive for UTI and urine culture will be sent. Patient had a CT of the abdomen pelvis initially that showed multiple pulmonary nodule and they recommended dedicated CT of the chest to evaluate further. She was also noted to have right adnexal cystic mass. I did obtain a pelvic ultrasound to rule out torsion and this was negative for torsion but she was noted to have right ovarian and paraovarian cyst. Patient CT of the chest showed multiple nodules that could be an Flamm a Tory versus infectious versus metastasis. At this point I will refer her to [facility] and pulmonology for follow-up. She will be given a prescription for [place] for pain and Keflex for suspected UTI. Patient given a prescription for [place] for pain. Lab Data Attestation: I reviewed the patient's lab results. Labs: Laboratory Results - last 24 hr 04/28/23 04/28/23 04/28/23 11:00 11:00 11:35 WBC 6.5 RBC 4.82 Hgb 13.5 Hct 40.1 MCV 83.2 MCH 28.0 MCHC 33.7 RDW Std Deviation 41.4 RDW Coeff of Salome 13.8 Plt Count 199 MPV 9.8 Immature Gran % (Auto) 0.200 Neut % (Auto) 78.9 H Lymph % (Auto) 14.2 L [place] % (Auto) 5.2 Eos % (Auto) 1.2 Baso % (Auto) 0.3 Absolute Neuts (auto) 5.1 Absolute Lymphs (auto) 0.92 Nucleated RBC % 0 Sodium 138 Potassium 4.1 Chloride 105 Carbon Dioxide 26.0 Anion Gap 7 BUN 14 Creatinine 0.66 Estim Creat Clear Calc 90.99 Est GFR (MDRD) Af Amer 124 Est GFR (MDRD) Non-Af 102 BUN/Creatinine Ratio 21.3 H Glucose 131 H Lactic Acid 1.0 Calcium 9.9 Total Bilirubin 0.50 AST 22 ALT 39 Alkaline Phosphatase 49 Total Protein 8.7 H Albumin 4.1 Globulin 4.6 H Albumin/Globulin Ratio 0.9 Urine Color Urine Clarity Urine pH Ur Specific [place] Urine Protein Urine Glucose (UA) Urine Ketones Urine Occult Blood Urine Nitrite Urine Bilirubin Urine Urobilinogen Ur Leukocyte Esterase Urine RBC Urine WBC Ur Squamous Epith Cells Urine Bacteria Urine Mucus 04/28/23 12:15 WBC RBC Hgb Hct MCV MCH MCHC RDW Std Deviation RDW Coeff of [place] Plt Count MPV Immature Gran % (Auto) Neut % (Auto) Lymph % (Auto) [place] % (Auto) Eos % (Auto) Baso % (Auto) Absolute Neuts (auto) Absolute Lymphs (auto) Nucleated RBC % Sodium Potassium Chloride Carbon Dioxide Anion Gap BUN Creatinine Estim Creat Clear Calc Est GFR (MDRD) Af Amer Est GFR (MDRD) Non-Af BUN/Creatinine Ratio Glucose Lactic Acid Calcium Total Bilirubin AST ALT Alkaline Phosphatase Total Protein Albumin Globulin Albumin/Globulin Ratio Urine Color Yellow Urine Clarity Sl. Cloudy Urine pH 5.0 Ur Specific [place] 1.025 Urine Protein 30 H Urine Glucose (UA) Normal Urine Ketones 15 H Urine Occult Blood 25 H Urine Nitrite Negative Urine Bilirubin Negative Urine Urobilinogen 1 H Ur Leukocyte Esterase 500 H Urine RBC 0 SEEN Urine WBC 25-50 SEEN Ur Squamous Epith Cells 5-10 SEEN Urine Bacteria 1+ Urine Mucus 0 SEEN Radiography Diagnostic Testing: Clinical Impression(s) from Imaging Studies Abdomen/Pelvis CT 04/28/23 11:01 IMPRESSION: Right adnexal cysts. Hepatomegaly. No biliary dilatation. Multiple pulmonary nodules suggesting metastatic disease versus inflammatory process. Dedicated CT of the chest recommended to further evaluate nodules. Electronically Signed: Anshu Conklin MD at 12:42 EDT , Transvaginal US 04/28/23 12:44 IMPRESSION: Right ovarian and paraovarian cysts. Normal blood flow. Electronically Signed: Anshu Conklin MD at 14:43 EDT , Chest CT 04/28/23 12:45 IMPRESSION: Multiple pulmonary nodules with inflammatory/infectious process versus metastatic disease. Electronically Signed: Anshu Conklin MD at 13:39 EDT , Discharge Plan Triage Chief Complaint: Abd Pain ED Provider: Aroldo Perez Dx/Rx/DC Orders Clinical Impression: UTI (urinary tract infection), Ovarian cyst, Pulmonary nodule Instructions: ED Abdominal Pain Unkn Cause Fem, ED Ovarian Cyst, ED Pulmonary Nodule, Solitary, ED Cystitis Female Adult Prescriptions: New sulfamethoxazole-trimethoprim [Bactrim DS] 800-160 mg tablet 1 tab PO BID Qty: 14 0RF hydrocodone-acetaminophen [hydrocodone-acetaminophen] 5-325 mg tablet 1 tab PO Q4H PRN PRN (Reason: Pain) 2 Days Qty: 10 0RF No Action aspirin 81 mg tablet,delayed release (DR/EC) 81 mg PO DAILY albuterol sulfate 90 mcg/actuation HFA aerosol inhaler inhalation ondansetron 4 mg tablet,disintegrating 4 mg PO Q8H PRN (Reason: nausea and vomiting) Qty: 30 0RF nystatin 100,000 unit/gram powder 1 applic topical BID Qty: 60 3RF Ozempic 1 mg/dose (4 mg/3 mL) pen injector See Rx Instructions .ROUTE .COMPLEX Qty: 3 1RF Dose Instruction: INJECT 1 MG (0.75 ML) SUBCUTANEOUSLY EVERY WEEK Rx Instructions: INJECT 1 MG (0.75 ML) SUBCUTANEOUSLY EVERY WEEK Primary Care Provider: Peter Bush Referrals: Sylvain Mcleod MD [Med Staff - Active Staff] - 3-5 Days Peter Bush MD [Primary Care Provider] - 3-5 Days Bhavani Barroso MD [Med Staff - Active Staff] - 3-5 Days Disposition Disposition: Home, Self Care
[2023-04-28 11:11] LABS: Absolute Lymphocyte Count 0.92 X10^3/uL (0.83-4.51); Absolute Neutrophil Count 5.1 X10^3/uL (2.0-7.7); Basophil# 0.02 X10^3/uL; Basophil% 0.3 % (0-1); Eosinophil# 0.08 X10^3/uL; Eosinophils% 1.2 % (0-5); Hematocrit 40.1 % (37-47); Hemoglobin 13.5 g/dL (12.0-15.0); Lymphocyte # 0.92 X10^3/ul (0.83-4.51); Lymphocyte % 14.2 % (19-41); Mean Corp Hgb Conc 33.7 g/dL (32-36); Mean Corpuscular Volume 83.2 fL (81-99); Mean Platelet Vol. 9.8 fl (6.2-12.0); Monocyte# 0.34 X10^3/uL; Monocyte% 5.2 % (0-10); NRBC Flagged by Analyzer 0 % (0-5); Neutrophil # 5.11 X10^3/uL (2.7-7.7); Neutrophil % 78.9 % (47-70); Platelet Count 199 K/mm3 (150-450); RBC Distribution Width CV 13.8 % (11.6-14.6); RBC Distribution Width SD 41.4 fl (35.1-43.9); Red Blood Count 4.82 M/mm3 (4.2-5.4); White Blood Count 6.5 K/mm3 (4.4-11.0)
[2023-04-28] MEDS: Ketorolac 15 MG/ML Vial IV (11:31)
[2023-04-28] MEDS: 0.9% Normal Saline 1,000 ML 125 ML IV (11:31)
[2023-04-28 11:32] LABS: ALB/GLOB Ratio 0.9 RATIO (0.9-2.4); AST(SGOT) 22 U/L (15-37); Alanine Aminotransfer ALT/SGPT 39 U/L (13-56); Albumin, Serum 4.1 g/dL (3.2-5.0); Alkaline Phosphatase 49 U/L (45-117); Anion Gap 7 (5-15); BUN 14 mg/dL (7-18); BUN/Creat Ratio 21.3 RATIO (10-20); Calcium,Total 9.9 mg/dL (8.5-10.1); Chloride 105 mmol/L (98-107); Creatinine, Serum 0.66 mg/dL (0.55-1.02); EST Glomerular Filtration Rate 102 mL/min (>60); Est Glom Filt Rate - Afr Amer 124 mL/min (>60); Estimated Creatinine Clearance 90.99 ml/min; Globulin 4.6 g/dL (2.2-4.2); Glucose 131 mg/dL (74-106); Potassium 4.1 mmol/L (3.5-5.1); Protein, Total 8.7 g/dL (6.4-8.2); Sodium Level 138 mmol/L (136-145)
[2023-04-28] MEDS: Morphine 4 MG/ML Syringe IV ×2 (11:32→14:18)
[2023-04-28] MEDS: Ondansetron 4 MG/2 ML Vial IV (11:32)
[2023-04-28 12:19] LABS: Mucous, Urine 0 SEEN /hpf (<or=2+); Red Blood Cells-Urine 0 SEEN /hpf (0-5)
[2023-04-28 12:21] LABS: Color, Urine Yellow (Yellow); Glucose, Dipstick Normal (Normal); Ketone-Dipstick 15 mg/dl (Negative); Leukocyte Esterase-Dipstick 500 /ul (Negative); Nitrite-Dipstick Negative (Negative); Occult Blood-Urine 25 /ul (Negative); Protein-Dipstick 30 mg/dl (Negative); Specific Gravity, Urine 1.025 (1.002-1.030); Urine Bilirubin Dipstick Negative (Negative); Urine Clarity Sl. Cloudy (Clear); Urine Urobilinogen 1 mg/dl (Normal)
[2023-04-28 12:27] LABS: Bacteria 1+ /hpf (None Seen); Squamous Epithelial Cells - UA 5-10 SEEN /hpf (5-10); White Blood Cells 25-50 SEEN /hpf (0-5)
--- NOTE | 2023-04-28 12:44 | US_ITS ---
STUDY: ULTRASOUND OF THE FEMALE PELVIS - REASON FOR EXAM: Female, 47 years old. Adnexal cyst, ro torsion LMP: Unknown. TECHNIQUE: Transvaginal TECHNICAL QUALITY: Adequate. COMPARISON: CT FINDINGS: The uterus is anteverted and is in a midline position. The uterus measures 8.4 x 5.6 x 4.3 cm. There is a Nabothian cyst of the cervix. The endometrium measures 4 mm in thickness, and is heterogeneous (striated). There is no demonstrated endometrial mass. There is no demonstrated myometrial mass. I.U.D. - The patient does not have an I.U.D. The right ovary is visualized. The right ovary measures 4.6 x 4.4 x 3.9 cm. There is 3.9 x 3.7 cm cyst. There is 6.7 x 6.4 cm paraovarian cyst. There is normal arterial and normal venous vascularity. The left ovary is visualized. The left ovary measures 2.6 x 2.1 x 1.9 cm. There is no left ovarian cyst or ovarian mass. There is no visualized left adnexal mass or complex lesion. There is normal arterial and normal venous vascularity. There is no fluid in the cul-de-sac. US/Transvaginal Non- IMPRESSION: Right ovarian and paraovarian cysts. Normal blood flow. Electronically Signed: Anshu Conklin MD at 14:43 EDT ,
--- NOTE | 2023-04-28 12:45 | CT_ITS ---
STUDY: CT CHEST WITHOUT CONTRAST REASON FOR EXAM: Female, 47 years old. Pulmonary nodules RADIATION DOSAGE (If Supplied By Facility): CTDIvol = ( 13.16 ) mGy, DLP = ( 499.77 ) mGycm TECHNIQUE: Transaxial imaging was performed without the administration of intravenous contrast material. Multiplanar coronal and sagittal images were reformatted. Individualized dose optimization techniques were used for this CT. COMPARISON: No relevant priors. FINDINGS: CHEST There are multiple, greater than 20, pulmonary nodules measuring up to 0.7 cm. There is no demonstrated pleural abnormality. Normal heart and pericardium. Normal mediastinum. Normal hilar regions. Normal unenhanced pulmonary arteries. Normal aorta arch and descending thoracic aorta. Normal osseous structures. There is no demonstrated abnormality of the visualized upper abdomen. CT/Chest WITH Contrast IMPRESSION: Multiple pulmonary nodules with inflammatory/infectious process versus metastatic disease. Electronically Signed: Anshu Conklin MD at 13:39 EDT ,
[2023-04-28] MEDS: Ceftriaxone 1 GM/50 ML BAG IV (13:42)
[2023-04-28 14:00] VITALS: BP 107/62; PULSE 63; RESP 16; O2SAT 98
== END 2023-04-28 15:24 | disposition home or self-care (01) ==
PROVIDERS: Emergency Provider Emergency Medicine; PCP Internal Medicine; Visit Provider Emergency Medicine
DX: N39.0 Urinary tract infection, site not specified (principal); R91.1 Solitary pulmonary nodule; N83.201 Unspecified ovarian cyst, right side; G47.33 Obstructive sleep apnea (adult) (pediatric); Z86.16 Personal history of COVID-19
CPT/HCPCS: 99281; 71260; 74176; 76830; 80053; 81001; 83605; 85025; 87086; 87088; 96361; 96365; 96375; 96376; 99282; J7030; Q9967; A4216; J2405

== ENCOUNTER → 2023-05-07 | Outpatient (CLI) | payer OTHER, SELFPAY ==
[2023-05-07 09:16] LABS: Rheumatoid Factor < 10.0 IU/mL (<15)
[2023-05-08 14:10] LABS: ANTINUCLEAR ANTIBODIES DIRECT Positive (Negative); Anti-Centromere B Ab <0.2 AI (0.0-0.9); Anti-Jo <0.2 AI (0.0-0.9); Anti-Scleroderma-70 AB 0.2 AI (0.0-0.9); Anti-dsDNA Ab 3 IU/mL (0-9); RNP Ab 2.4 AI (0.0-0.9); SJOGREN'S Anti-SS-A test 0.3 AI (0.0-0.9); SJOGREN'S Anti-SS-B test < 0.2 AI (0.0-0.9); Smith Ab 0.4 AI (0.0-0.9)
[2023-05-08 15:08] LABS: CCP IgG Antibodies 6 units (0-19); Cytoplasmic Ab (C-ANCA) <1:20 titer (Neg:<1:20); Perinuclear Ab (P-ANCA) <1:20 titer (Neg:<1:20)
== END | disposition home or self-care (01) ==
LOC: LAB 08:19
PROVIDERS: PCP Internal Medicine; Referring Provider Internal Medicine Critical Care Medicine; Visit Provider Internal Medicine Critical Care Medicine
DX: R91.8 Other nonspecific abnormal finding of lung field (principal)
CPT/HCPCS: 36415; 86038; 86200; 86225; 86235; 86256; 86431

== ENCOUNTER → 2023-06-13 | Outpatient (CLI) | payer OTHER, SELFPAY ==
[2023-06-13 10:12] LABS: Absolute Lymphocyte Count 1.76 X10^3/uL (0.83-4.51); Absolute Neutrophil Count 3.3 X10^3/uL (2.0-7.7); Basophil# 0.05 X10^3/uL; Basophil% 0.9 % (0-1); Eosinophil# 0.23 X10^3/uL; Hematocrit 40.6 % (37-47); Hemoglobin 13.3 g/dL (12.0-15.0); Lymphocyte # 1.76 X10^3/ul (0.83-4.51); Lymphocyte % 30.6 % (19-41); Mean Corp Hgb Conc 32.8 g/dL (32-36); Mean Corpuscular Hgb 27.8 pg (27.0-32.0); Mean Corpuscular Volume 84.8 fL (81-99); Mean Platelet Vol. 10.5 fl (6.2-12.0); Monocyte# 0.41 X10^3/uL; Monocyte% 7.1 % (0-10); NRBC Flagged by Analyzer 0 % (0-5); Neutrophil # 3.29 X10^3/uL (2.7-7.7); Neutrophil % 57.2 % (47-70); Platelet Count 165 K/mm3 (150-450); RBC Distribution Width SD 42.9 fl (35.1-43.9); Red Blood Count 4.79 M/mm3 (4.2-5.4); White Blood Count 5.8 K/mm3 (4.4-11.0)
== END | disposition home or self-care (01) ==
LOC: WOBLAB 09:23
PROVIDERS: PCP Internal Medicine; Visit Provider Nurse Practitioner Women's Health
DX: R10.2 Pelvic and perineal pain (principal); N93.9 Abnormal uterine and vaginal bleeding, unspecified
CPT/HCPCS: 36415; 82670; 83001; 83002; 84146; 84439; 84443; 85025

== ENCOUNTER → 2023-06-17 | Outpatient (CLI) | payer OTHER, SELFPAY ==
[2023-06-17 14:58] LABS: Estradiol 19.7 pg/mL; Follicle Stimulating Hormone 42.1 mIU/mL; Luteinizing Hormone 23.2 mIU/mL; Prolactin 7.9 ng/mL; T4 Free Direct 1.06 ng/dL (0.76-1.46); Thyroid Stim Hormone (TSH) 1.23 uIU/mL (0.358-3.74)
== END | disposition home or self-care (01) ==
LOC: WOBLAB 13:33
PROVIDERS: PCP Internal Medicine; Visit Provider Nurse Practitioner Women's Health
DX: R10.2 Pelvic and perineal pain (principal); N93.9 Abnormal uterine and vaginal bleeding, unspecified
CPT/HCPCS: 82670; 83001; 83002; 84146; 84439; 84443

== ENCOUNTER → 2023-06-25 | Outpatient (CLI) | payer OTHER, SELFPAY ==
--- NOTE | 2023-06-25 | EMB_PTH ---
PATIENT: ROSE IVY LOC: [facility] U#:[id number] AGE/SX: 47/F ROOM: RE06/25/[address]: Dr. Marta Donnelly DO : 1975 BED: DIS: 06/25/2023 SPEC #: [id number] RECD: 06/25/23 13:32 STATUS: MICKEY RERoxi #: [id number] ENRIQUE: 06/25/23 00:[address]: Marta Donnelly DEPT: SURGICAL PATHOLOGY RECD BY: Almas Stokes ENTERED: 06/25/23 13:32 SP TYPE: ENDOM BX/C DOT DR: Dr. Peter Bush MD Tissues: Endometrium, NOS Procedures: Surgery Specimen Level IV HEADER OPERATION: Endometrial biopsy PRE-OP DIAGNOSIS: R10.2 pelvic and perineal TISSUE SUBMITTED: Endometrial biopsy MICROSCOPIC DIAGNOSIS Endometrium, biopsy: Strips of benign superficial glandular mucosa. AM:tino 06/26/2023 MICROSCOPIC DESCRIPTION Slides are reviewed. GROSS DESCRIPTION Received in fixative is one container labeled with the patient's name and designated endometrial biopsy. The specimen consists of multiple irregular fragments of pink soft tissue that in aggregate measure 2.0 x 1.0 x 0.1 cm. The specimen is totally submitted in one cassette. / SJ:tino 06/25/2023 TC:5 CPT: 78186
== END | disposition home or self-care (01) ==
LOC: LABSPEC 12:01
PROVIDERS: PCP Internal Medicine; Visit Provider Student in an Organized Health Care Education/Training Program
DX: R10.2 Pelvic and perineal pain (principal)
CPT/HCPCS: 88305

== ENCOUNTER 2024-01-12 04:34 | Emergency (ER) | payer OTHER, SELFPAY ==
[2024-01-12 04:34] VITALS: BP 132/84; PULSE 146; RESP 18; TEMP 36.9; O2SAT 95; BMI 30.6
--- NOTE | 2024-01-12 04:45 | EKG12_ITS ---
Test Reason : REPEAT Blood Pressure : / mmHG Vent. Rate : 083 BPM Atrial Rate : 083 BPM P-R Int : 186 ms QRS Dur : 078 ms QT Int : 340 ms P-R-T Axes : 061 039 036 degrees QTc Int : 399 ms Normal sinus rhythm Normal ECG Confirmed by Damien Goyal ([id number]), graphics editor ZECHARIAH NORIEGA ([id number]) on 01/14/2024 9:22:36 AM Referred By: CAROLIN Confirmed By:Damien Goyal
--- NOTE | 2024-01-12 04:45 | RAD_ITS ---
INDICATION: sob EXAMINATION/TECHNIQUE: X-RAY - XR Chest 1 View COMPARISON: October 11, 2019. FINDINGS: LINES/DEVICES: None. LUNGS: No consolidation, edema or effusion. No pneumothorax. MEDIASTINUM AND CARDIOVASCULAR STRUCTURES: Cardiac silhouette not enlarged. BONES AND SOFT TISSUES: Unremarkable. RAD/Chest 1 View (Portable) IMPRESSION: No radiographic evidence of acute cardiopulmonary disease. Electronically Signed: Froy Molina MD at 6:07 EST ,
--- NOTE | 2024-01-12 04:51 | EDS_ITS ---
HPI History of Present Illness Chief Complaint: Palpitations Informant: patient Onset/Context/Timing Onset: Today Narrative Narrative: Patient present secondary to palpitations with concern for A-fib. She is a hist ory of paroxysmal A-fib. She states the last time she had a significant episode was in 2019 and she was admitted at that time. After reviewing records it appears she was initially on a Cardizem drip. She was then placed on flecainide and converted after her third dose. She was discharged on a blood thinner, flecainide, and metoprolol. Her blood thinner was stopped 1 to 2 months later. She had not had recurrent A-fib and her flecainide was stopped 7 months later. She is now also off her metoprolol, but does not remember when that was stopped. Patient states that she would have some palpitations that would last a minute or 2, but no significant episodes until tonight. She woke about 2 hours ago with palpitations and her heart racing. [facility] Medical History Abdominal panniculus Atrial fibrillation with RVR (09/2019) Carpal tunnel syndrome Chronic back pain Chronic cough Colon cancer screening COVID-19 (08/16/21) Elevated LFTs Excessive and redundant skin and subcutaneous tissue Gallstones Health care maintenance Hemoglobin A1c less than 7.0% History of blood transfusion Hot flashes Intertriginous dermatitis associated with moisture Intertrigo Lymphadenopathy Morbid obesity Obesity Obesity, Class I, BMI 30-34.9 Obstructive sleep apnea Paroxysmal A-fib (09/2019) Preoperative evaluation to rule out surgical contraindication Recent weight loss Striae atrophic Type 2 diabetes mellitus URI (upper respiratory infection) Wrist pain, right Home Medications aspirin 81 mg tablet,delayed release 81 mg PO DAILY 01/08/20 [History Last Taken Unknown] ondansetron 4 mg disintegrating tablet 4 mg PO Q8H PRN nausea and vomiting #30 tabs 02/15/23 [Rx Last Taken Unknown] nystatin 100,000 unit/gram topical powder 1 applic topical BID #60 grams 04/18/23 [Rx Last Taken Unknown] albuterol sulfate 90 mcg/actuation aerosol inhaler 2 puff inhalation Q6H PRN shortness of breath or wheezing #8.5 grams 07/22/23 [Rx Last Taken Unknown] semaglutide 2 mg/dose (8 mg/3 mL) subcutaneous pen injector See Rx Instructions .Route .COMPLEX 3 months #3 mL 12/25/23 [Rx Last Taken Unknown] Allergy/AdvReac Type Severity Reaction Status Date / Time Penicillins Allergy Rash Verified 12/25/23 09:45 Family History Father Diabetes Mother Cancer ovarian and thyroid Grandmother Dementia Other Arthritis Mental problems Surgical History History of bunionectomy History of cholecystectomy History of tubal ligation Social History household members: significant other Smoking Status: Never smoker alcohol intake: current substance use type: does not use what type of physical activity do you participate in: none additional social history: Does Take Aspirin As Needed Does Take Ibuprofen As Needed ROS ROS ED Constitutional Constitutional ED: Denies chills or fever(s) Eyes Eyes: Denies discharge from eye(s) ENT ENT ED: Denies discharge from eye(s), rhinorrhea or sore throat Cardiovascular Cardiovascular: Reports palpitations and racing heartbeat; Denies chest pain Respiratory/Chest Respiratory/Chest: Reports dyspnea; Denies cough Gastrointestinal Gastrointestinal: Denies abdominal pain, nausea or vomiting Musculoskeletal Musculoskeletal: Denies back pain or extremity pain Integumentary Denies Abrasions or rash Neurologic Neurologic: Denies headache(s) or weakness Psychiatric Psychiatric: Denies anxiety or depression Allergic/Immunologic Allergic/Immunologic ED: Denies lip swelling or urticaria EXAM Physical Exam Const Vital Signs: 01/12/24 04:34 01/12/24 05:45 01/12/24 06:02 Temperature 98.5 F Temperature Source Temporal Pulse Rate 146 H 106 H 90 Respiratory Rate 18 22 H 27 H Blood Pressure 132/84 H 107/71 113/66 Blood Pressure Mean 100 83 81 Pulse Ox 95 99 94 Oxygen Delivery Method Room Air Room Air Room Air Positive well nourished and well developed General Appearance ED: well developed HEENT Reports moist mucous membranes Eyes EOMs intact bilaterally Chest Wall inspection of chest normal and palpation of chest normal Resp normal respiratory effort and clear to auscultation bilaterally Cardio Rate: tachycardic Rhythm: abnormal rhythm irregularly irregular GI non-tender Palpation: soft Extremity normal to inspection Neuro oriented x3 and no sensory deficits noted Motor Exam: strength 5/5 throughout Psych mental status grossly normal Skin no rashes or lesions noted MDM MDM MDM Narrative Medical decision making narrative: Patient placed on cardiac/vascular sonographer. IV line initiated. EKG obtained to evaluate for cardiac arrhythmia/ischemia. Chest x-ray obtained to evaluate for acute lung pathology, cardiac size, or mediastinal abnormality. Labwork obtained to evaluate for leukocytosis, anemia, and electrolyte derangement. Patient is in A-fib with RVR. She will be ordered 10 mg of IV Cardizem for rate control. History & Record Review Discussion w/independent historian: Patient Additional record(s) reviewed:: Prior inpatient record, Prior outpatient record, Prior ED visit and Prior labs Lab Data Attestation: I reviewed the patient's lab results. Labs: Laboratory Results - last 24 hr 01/12/24 04:45 WBC 6.6 RBC 4.48 Hgb 13.1 Hct 38.2 MCV 85.3 MCH 29.2 MCHC 34.3 RDW Std Deviation 41.5 RDW Coeff of Salome 13.4 Plt Count 141 L MPV 10.6 Immature Gran % (Auto) 0.200 Neut % (Auto) 56.6 Lymph % (Auto) 32.3 Fajardo % (Auto) 7.7 Eos % (Auto) 2.7 Baso % (Auto) 0.5 Absolute Neuts (auto) 3.8 Absolute Lymphs (auto) 2.14 Nucleated RBC % 0 Sodium 140 Potassium 3.4 L Chloride 109 H Carbon Dioxide 25.0 Anion Gap 6 BUN 19 H Creatinine 0.59 Estim Creat Clear Calc 124.44 Est GFR (MDRD) Af Amer 141 Est GFR (MDRD) Non-Af 116 BUN/Creatinine Ratio 32.4 H Glucose 92 Calcium 9.1 Magnesium 2.1 Troponin I High Sens 4 TSH 6.11 H Radiography Chest X-Ray - ED: 1 View, Read by ED Physician, Normal, Heart, Lungs and Mediastinum Diagnostic Testing: Clinical Impression(s) from Imaging Studies Chest X-Ray 01/12/24 04:45 IMPRESSION: No radiographic evidence of acute cardiopulmonary disease. Electronically Signed: Froy Molina MD at 6:07 EST , EKG Initial EKG: Attestation: I personally reviewed and interpreted this EKG as follows: Interpretation: Atrial Fibrillation (A-fib RVR with ventricular rate of 127. No acute ST change.) Follow-up EKG: Attestation: I personally reviewed and interpreted this EKG as follows: Interpretation: Sinus Rhythm (Sinus rhythm 83 bpm with no acute ischemia.) Treatment and Re-Evaluation :: CBC was normal white count 6.6 with a hemoglobin of 13.1. Differential unrem arkable. Chemistry studies reveal slightly low potassium at 3.4. This is replaced orally. Troponin is normal at 4. Magnesium is normal at 2.1. TSH is slightly elevated at 6.11. T3 and T4 values are sent and can be followed up by her primary care physician. Initial EKG is A-fib RVR with no evidence of ischemia. Patient was given 10 mg of IV Cardizem. Heart rate did improve to about 100, but she did become slightly hypotensive with pressure of 96 systolic. After ambulating to the restroom and back her heart rate was elevated again around 150. After sitting at rest for about 15 minutes she came back down around 105. IV fluid bolus was given. At this time patient has converted back to a sinus rhythm. Repeat EKG confirms sinus rhythm with no acute ischemia. Test results were discussed with the patient. She will follow-up with her primary care physician. She is very sensitive to her A-fib and can feel when she kicks in and out. She was advised that if she has more frequent episodes and they persist longer she does need to speak with her supervisor cutting department and/or primary care physician regarding possible need for anticoagulation and rate control. She voices understanding and agreement. Return instructions provided. Discharge Plan Triage Chief Complaint: Palpitations ED Provider: Cassandra Torres Dx/Rx/DC Orders Clinical Impression: Paroxysmal A-fib, Atrial fibrillation with RVR Instructions: ED AFIB Prescriptions: No Action aspirin 81 mg tablet,delayed release (DR/EC) 81 mg PO DAILY ondansetron 4 mg tablet,disintegrating 4 mg PO Q8H PRN (Reason: nausea and vomiting) Qty: 30 0RF nystatin 100,000 unit/gram powder 1 applic topical BID Qty: 60 3RF albuterol sulfate 90 mcg/actuation HFA aerosol inhaler 2 puff inhalation Q6H PRN (Reason: shortness of breath or wheezing) Qty: 8.5 3RF Ozempic 2 mg/dose (8 mg/3 mL) pen injector See Rx Instructions .ROUTE .COMPLEX 90 Days Qty: 3 1RF Dose Instruction: INJECT 1 MG (0.75 ML) SUBCUTANEOUSLY EVERY WEEK Rx Instructions: INJECT 2 MG (0.75 ML) SUBCUTANEOUSLY EVERY WEEK Primary Care Provider: Peter Bush Referrals: Peter Bush MD [Primary Care Provider] - Activity Restrictions/Additional Instructions: As discussed, your TSH value was slightly elevated. To further thyroid studies were sent and you can follow-up with your primary care physician regarding these results. Your potassium was slightly low and you were given potassium replacement here. Disposition Disposition: Home, Self Care
[2024-01-12] MEDS: dilTIAZem 25 MG/5 ML Vial 10 MG IV BOLUS (04:52)
[2024-01-12] MEDS: 0.9% Normal Saline (1000mL) 1,000 ML 150 ML IV (05:00)
[2024-01-12 05:16] LABS: Absolute Lymphocyte Count 2.14 X10^3/uL (0.83-4.51); Absolute Neutrophil Count 3.8 X10^3/uL (2.0-7.7); Basophil# 0.03 X10^3/uL; Basophil% 0.5 % (0-1); Eosinophil# 0.18 X10^3/uL; Eosinophils% 2.7 % (0-5); Hematocrit 38.2 % (37-47); Hemoglobin 13.1 g/dL (12.0-15.0); Lymphocyte # 2.14 X10^3/ul (0.83-4.51); Lymphocyte % 32.3 % (19-41); Mean Corp Hgb Conc 34.3 g/dL (32-36); Mean Corpuscular Hgb 29.2 pg (27.0-32.0); Mean Corpuscular Volume 85.3 fL (81-99); Mean Platelet Vol. 10.6 fl (6.2-12.0); Monocyte# 0.51 X10^3/uL; Monocyte% 7.7 % (0-10); NRBC Flagged by Analyzer 0 % (0-5); Neutrophil # 3.75 X10^3/uL (2.7-7.7); Neutrophil % 56.6 % (47-70); Platelet Count 141 K/mm3 (150-450); RBC Distribution Width CV 13.4 % (11.6-14.6); RBC Distribution Width SD 41.5 fl (35.1-43.9); Red Blood Count 4.48 M/mm3 (4.2-5.4); White Blood Count 6.6 K/mm3 (4.4-11.0)
--- OUTSIDE RECORDS SUMMARY | 2024-01-12 05:16 | XMS RPT_ITS | CCD ---
Author Name Unknown Address [address] [place] [address] Organization [facility] Care Team Providers Care Varnisher Name Role Phone JULISSA BREEN Unavailable Unavailable Unavailable Primary Care Provider Unavailabl e Peter Bush Primary Care Provider Peter Bush Primary Care Provider Peter Bush MD Primary Care Provider Allergies Allergy Classification Reported Allergen(s) Allergy Type Date of Onset Reaction(s) Facility (8 sources) Penicillins Propensity to adverse reactions to drug 0 Other: See Comments [facility] Medications Completed/Discontinued Medications Medication Drug Class(es) Dates Sig (Normalized) Sig (Original) [id number] 200 actuat albuterol 0.09 mg/actuat metered dose inhaler (1 source) beta2-Adrenergic Agonist Start: 08-26-2020 albuterol HFA (PROVENTIL HFA, VENTOLIN HFA) 90 mcg/actuation inhaler 1 2 PUFF INHALATION Q6H NEEDED FOR SHORTNESS OF BREATH OR WHEEZING 0 08/26/2020 Active Problems Problem Classification Problem Date Documented Date Episodic/Chronic Anxiety disorders (1 source) Anxiety disorder; Translations: [Anxiety disorder, unspecified type] Chronic Asthma (1 source) Mild intermittent asthma; Translations: [Mild intermittent asthma without complication] Chronic Cardiac dysrhythmias (2 sources) Paroxysmal atrial fibrillation; Translations: [Paroxysmal atrial fibrillation (HCC)] Chronic Miscellaneous mental health disorders (2 sources) Psychosomatic factor in physical condition; Translations: [Binge eating disorder] Chronic Nutritional deficiencies (1 source) Vitamin D deficiency; Translations: [Vitamin D deficiency] Chronic Other nutritional; endocrine; and metabolic disorders (6 sources) Severe obesity; Translations: [Class 3 severe obesity with serious comorbidity in adult, unspecified BMI, unspecified obesity type (HCC)] Chronic Other nutritional; endocrine; and metabolic disorders (2 sources) Body mass index 40+ - severely obese; Translations: [Morbid (severe) obesity due to excess calories] Onset: 12-12-2020 12-12-2020 Chronic Residual codes; unclassified (2 sources) Obstructive sleep apnea syndrome; Translations: [Obstructive sleep apnea syndrome] Chronic Unclassified (2 sources) Patient encounter status; Translations: [Dietary counseling and surveillance] Results Test Name Value Interpretation Reference Range Facil ity Vital Signs Date Time Vital Sign Value Performing Clinician Faci lit 11-16-2020 08:38-0500 Body weight 109.77 kg Williams pAonte [facility] 11-16-2020 08:38-0500 Height 162.6 cm Williams Aponte [facility] 10-26-2020 10:41-0500 Body weight 110.09 kg Fariha Bae [facility] 10-26-2020 10:41-0500 Height 162.6 cm Fariha Bae [facility] 09-21-2020 11:24-0400 Body weight 112.04 kg Niecy arceo [facility] 09-21-2020 11:24-0400 [facility] Encounters Encounter Date Encounter Type Care Provider Facility Start: 02-05-2023 Telephone encounter Ramya vega APRN.CNP Work Phone: [facility] Procedures Date Procedure Procedure Detail Performing Clinician Start: 11-22-2020 Us abdominal real ti me w/image limited Williams Aponte Work Phone: Plan of Treatment Date Care Activity Detail Author Start: 01-31-2026 LIPID SCREEN LIPID SCREEN [facility] Start: 02-01-2024 DIABETES SCREEN DIABETES SCREEN [facility] Start: 12-02-2022 DEPRESSION ASSESSMENT DEPRESSION ASS ESSMENT [facility] Start: 08-02-2022 Influenza vaccination INFLUENZA (#1) [facility] Start: 04-10-2021 COVID-19 VACCINE (2 - Pfizer series) COVID-19 VACCINE (2 - Pfizer series) [facility] Start: 01-27-2021 COLOGUARD (FIT-DNA) COLOGUARD (FIT-D NA) [facility] Start: 2020 Colonoscopy COLONOSCOPY [facility] Start: 2020 COLORECTAL CANCER SCREENING COLORECTAL CANCER SCREENING [facility] Start: [address] COLONOGRAPHY [facility] Start: 2020 FECAL OCCULT BLOOD FECAL OCCULT BLOO D [facility] Start: 2020 SIGMOIDOSCOPY SIGMOIDOSCOPY [facility] Start: 09-21-2020 End: 09-21-2021 HbA1c (Bld) [Mass fraction] HGB A1C Lab Routine Dietary counseling and surveillance Class 3 severe obesity with serious comorbidity in adult, unspecified BMI, unspecified obesity type (HCC) Body mass index 40.0-44.9, adult (HCC) Paroxysmal atrial fibrillation (HCC) Mild intermittent asthma without complication Expected: 09/21/2020, Expires: 09/21/2021 [facility] Immunizations Immunization Date Immunization Notes Care Provider Ashley muro 03-20-2021 COVID-19 original vaccine, age 12+ yr, monovalent (PFIZER-BIONTECH - PURPLE TOP) Ramya Lama PRODUCT SALES REPRESENTATIVE.[facility] Work Phone: [facility] Work Phone: Payers Date Payer Category Payer Private Health Insurance [facility] [employer] [id number] 2015-Present HMO [id number] 2015 Private Health Insurance [facility] [employer] [id number] 2015-Present [phone] [address] [place] [address] O [id number] Social History Date Type Detail Facility Tobacco smoking stat us ILIS Unknown if ever smoked [facility] Start: 1975 Sex Assigned At Not on file C [facility] Start: 09-21-2020 End: 11-16-2020 Tobacco smoking status NHIS Never smoker [facility] Start: 09-21-2020 End: 11-16-2020 Tobacco use and exposure Never used [facility] Exposure to SARS-CoV -2 (event) Unable to assess [facility] Exposure to SARS-CoV -2 (event) Not sure [facility] Start: 03-31-2021 Alcohol intake Current drinke r of alcohol (finding) [facility] Start: 12-12-2020 Alcohol Comment socially [facility] Goals Date Patient Goal Desired Activity /State Note 02-05-2023 Telephone Encounter - Shima Giorgio - 02/05/2023 4:18 PM EST Note Date & Type Note Facility 02-05-2023 Miscellaneous Notes Formattin g of this note might be different from the original. Bariatric Investigation: EXCLUDED: No E66.01 Obesity Medicine Coverage: Yes 78453 RNY Yes 73225 SLEEVE Yes 00027 REVISION Yes Single 80-20 % after ded 750 Deductible 536.86 met 5400 Out of Pocket 536.86 met Virtual visit coverage: Yes REQUIREMENTS: Pulmonary Clearance: Yes Cardiac Clearance: Yes Nicotine Testing: Yes Drug Testing: Yes TSH Testing: Yes If Female patient, is test required: Yes Months of Wt Loss: 6 Consecutive: Yes Months of Weight History: 6 Is weight loss history required prior to starting Bariatric Program? No If yes, how many months prior is required? 0 ACTION: Appointment Scheduled: No Message Left: No PATHWAY: Black swimming pool serviceperson: Valerie Panda- [phone] documented in this encounter [facility] Summary Purpose Family History No Family History Records FoundNo Family History Records FoundNo Family History Records FoundNo Family History Records FoundNo Family History Records Found Advance Directives No Advanced Directives Records FoundNo Advanced Directives Records FoundNo Advanced Directives Records FoundNo Advanced Directives Records FoundNo Advanced Directives Records Found Instructions * Patient Instructions* Niecy Peña - 09/21/2020 12:52 PM EDT TRYING TO LOSE WEIGHT? Your Body mass index is 42.4 kg/m . (Target BMI: 19-25) A person with a BMI between 25 and 29.9 is considered overweight A person with a BMI of 30 or greater is considered to be obese SETTING A WEIGHT LOSS GOAL: Last 5 Encounter Wt Readings: Date: Wt: 09/21/2020 112 kg (247 lb) Lose 10% of body weight over six months, about 1-2 lbs per week LIFESTYLE CHANGES The goals of lifestyle changes are to help you change your eating habits, become more active, and be more aware of how much you eat and exercise, helping you to make healthier choices. This can be broken down into three steps: 1. Triggers to eat Determining what triggers you to eat involves figuring out what foods you eat and where and when you eat. To figure out what triggers you to eat, keep a record for a few days of everything you eat, the places where you eat, how often you eat, and the emotions you were feeling when you ate. For some people, the trigger is related to a certain time of day or night. For others, the trigger is related to a certain place, like sitting at a desk working. 2. Eating You can change your eating habits by breaking the chain of events between the trigger foreating and eating itself. There are many ways to do this. For instance, you can: Limit where you eat to a few places (eg, dining room) Restrict the number of utensils (eg, only a fork) used for eating Drink a sip of water between each bite Chew your food a certain number of times Get up and stop eating every few minutes 3. What happens after you eat Rewarding yourself for good eating behaviors can help you to develop better habits. This is not a reward for weight loss; instead, it is a reward for changing unhealthy behaviors. Do not use food as a reward. Some people find money, clothing, or personal care (eg, a hair cut, manicure, or massage) to be effective rewards. Treat yourself immediately after making better eating choices to reinforce the value of the good behavior. You need to have clear behavior goals, and you must have a time frame for reaching your goals. Reward small changes along the way to your final goal. Other factors that contribute to successful weight loss Establish a jolynn system Having a friend or family member available to provide support and reinforce good behavior is very helpful. The support person needs to understand your goals. Learn to be strong Learning to be strong when tempted by food is an important part of losing weight. As an example, you will need to learn how to say no and continue to say no when urged to eat at parties and social gatherings. Develop strategies for events before you go, such as eating before you go or taking low- calorie snacks and drinks with you. Develop a support system Having a support system is helpful when losing weight. This is why many commercial groups are successful. Family support is also essential; if your family does not support your efforts to lose weight, this can slow your progress or even keep you from losing weight. Positive thinking People often have conversations with themselves in their head; these conversations can be positive or negative. If you eat a piece of cake that was not planned, you may respond by thinking, Oh, you stupid idiot, you've blown your diet! and as a result, you may eat more cake. A positive thought for the same event could be, Well, I ate cake when it was not on my plan. Now I should do something to get back on track. A positive approach is much more likely to be successful than a negative one. Reduce stress Although stress is a part of everyday life, it can trigger uncontrolled eating in some people. It is important to find a way to get through these difficult times without eating or by eating low-calorie food, like raw vegetables. It may be helpful to imagine a relaxing place that allows you to temporarily escape from stress. With deep breaths and closed eyes, you can imagine this relaxing place for a few minutes. Self-help programs Self-help programs like Weight Watchers , Overeaters Anonymous , and Take Off Pounds Sensibly (TOPS) work for some people. As with all weight loss programs, you are most likely to be successful with these plans if you make long-term changes in how you eat. CHOOSING A DIET A calorie is a unit of energy found in food. Your body needs calories to function. The goal of any diet is to burn up more calories than you eat. How quickly you lose weight depends upon several factors, such as your age, gender, and starting weight. Older people have a slower metabolism than young people, so they lose weight more slowly. Men lose more weight than women of similar height and weight when dieting because they use more energy. People who are extremely overweight lose weight more quickly than those who are only mildly overweight. How many calories do I need? You can estimate the number of calories you need per day based upon your current (or target) weight, gender, and activity level for women and for men. In general, it is best to choose foods that contain enough protein, carbohydrates, essential fatty acids, and vitamins. Try not to drink alcohol or drinks with added sugar, and most sweets (candy, cakes, cookies), sincethey rarely contain important nutrients. Portion-controlled diets One simple way to diet is to buy packaged foods, like frozen low-calorie meals or meal-replacement canned drinks. A typical meal plan for 1000 to 1500 calories per day may include: A meal-replacement drink or breakfast bar for breakfast A meal-replacement drink or a frozen low-calorie (250 to 350 calories) meal for lunch A frozen low-calorie meal or other prepackaged, calorie-controlled meal, along with extra vegetables for dinner Low-fat diet To reduce the amount of fat in your diet, you can: Eat low-fat foods. Low-fat foods are those that contain less than 30 percent of calories from fat. Fat is listed on the food facts label Count fat grams. For a 1500 calorie diet, this would mean about 45 g or fewer of fat per day. Low-carbohydrate diet Low- and bbsw-hcx-dctycsmpyqxa diets (eg, Atkins diet, Set.fm diet) havebecome popular ways to lose weight quickly. With a vaxt-odl-gsqveuhptwlh diet, you eat between 0 and 60 grams of carbohydrates per day (a standard diet contains 200 to 300 grams of carbohydrates) With a low-carbohydrate diet, you eat between 60 and 130 grams of carbohydrates per day Carbohydrates are found in fruits, vegetables, and grains (including breads, rice, pasta, and cereal), alcoholic beverages, and in dairy products. Meat and fish do not contain carbohydrates. Side effects of deas-yjw-zpskgrllebbw diets can include constipation, headache, bad breath, muscle cramps, diarrhea, and weakness. Mediterranean diet The term Mediterranean diet refers to a way of eating that is common in olive-growing regions around the [place] Sea. Although there is some variation in Mediterranean diets, there are some similarities. Most Mediterranean diets include: A high level of monounsaturated fats (from olive or canola oil, walnuts, pecans, almonds) and a lowlevel of saturated fats (from butter) A high amount of vegetables, fruits, legumes, and grains (7 to 10 servings of fruits and vegetablesper day) A moderate amount of milk and dairy products, mostly in the form of cheese. Use low-fat dairy products (skim milk, fat-free yogurt, low-fat cheese). A relatively low amount of red meat and meat products. Substitute fish or poultry for red meat. For those who drink alcohol, a modest amount (mainly as red wine) may help to protect against cardiovascular disease. A modest amount is up to one (4 ounce) glass per day for women and up to two glasses per day for men. Which diet is best? No one diet is best for weight loss. Any diet will help you to lose weight if you stick with the diet. Therefore, it is important to choose a diet that includes foods you like. Fad diets Fad diets often promise quick weight loss (more than 1 to 2 pounds per week) and may claim that you do not need to exercise or give up favorite foods. Some fad diets cost a lot of money, because you have to pay for seminars or pills. Fad diets generally lack any scientific evidence that they are safe and effective, but instead rely on before and after photos or testimonials. Diets that sound too good to be true usually are. These plans are a waste of time and money and arenot recommended. A doctor, nurse, or print cutter can help you find a safe and effective way to lose weight and keep it off. Adapted from [employer] documented in this encounter* Patient Instructions* Williams Aponte - 11/16/2020 9:33 AM EST Please continue to focus on good diet and exercise choices as you learn how to use your new tool documented in this encounter History of Present Illness * Niecy Peña - 09/21/2020 1:07 PM EDT This Team Access Model visit is a phone encounter/virtual visit due to COVID -19 Pandemic . It required patient-provider interaction for the medical decision making as documented below. Consent was obtained to complete today's distance health visit. BMI Obesity Medicine 09/21/20 Patient Summary: [phone] Total time of telephone encounter: 46 mins This Team Access Model visit is a phone encounter/virtual visit due to COVID -19 Pandemic . It required patient-provider interaction for the medical decision making as documented below. Consent was obtained to complete today's distance health visit. SUBJECTIVE: Luz Elena Iyv is a 44 year old female with PMX of A-fiB dx 2018 on metoprolol and flecainide, [facility] , see Dr Chapin ,last seen March 2020, was on eliquis but was taken off byhis risk assessment consultant in March or april/ mild intermittent asthma who presents on September 21, 2020 for medical evaluation of bariatric surgery. Age at onset - early adult years.gained weight post pregnancies as well as due to depression ,she gained >100 lbs 18 years ago with 2 back to back pregnancies. She was 180 before . Rate of weight gain is described as rapid increase . Despite several effort of loosing weight she has not been successful, Family history positive for obesity in the patient s father and mother. She considers ideal weight to be 150 lbs, Weight at graduation from high school 100 lbs. . Previous treatments include self-directed dieting and working out/keto diet /. She has several relatives with Reported Causes of Weight Gain: Family history of obesity:yes in MOM and siblings Post weight retention:yes Maeve/post menopause:No Related to past/current medication use:No Following tobacco cessation:No Reduced physical activity:No Inadequate sleep duration(<6hr/night):No car shifter work associated weight gain: no Modifiable Lifestyle Factors: Exercise Regular exercise: No Current barriers to regular exercise? Nervous to go back to the gym Diet: Quality of diet: usually good Routine Breakfast : 8:30 : eggs/ sausages Coffee :black Lunch [place] sandwich /left over /occasional hard seltzer Snacks:almonds Dinner 6-7 Tacos/ meat and cheese/ Veggies meat /less carb Bedtime -9-5 Diet History: Past weight loss attempts? Yes Use of anti-obesity medications? None ?Sleep Duration:adequate Quality:Generally restful Snore 1 , Tired,1 Observed, 0 Pressure, 0BMI>351 , Age>500 , Neck>16 unsure , Gender male : 0 STOPBANG score = 3 Home sleep study done in January was positive was recommended cpap but due to COVID she never followed with her PCP. Stress Degree:Some Cause:Personal, coping well , None Obesity Related Comorbidities Per past medical history (see below) Prior Weight Loss Surgery:No FUNCTIONAL STATUS: Walk a block or two on level ground (2.75 METs) Do moderate work around the house such as vacuuming, sweeping floors, or carrying in groceries (3.50 METs) FUNCTIONAL CLASS: 2 (1=no limitation, 2=slight limitation, sx with ordinary activity, 3=marked limitation, 4=severe limitation) PAST SURGICAL HISTORY Procedure Laterality Date TUBAL LIGATION Obesity ROS/ FHx Fatigue:yes h/o palpitations/cardiac arrhythmia/SOB :yes H/o blood clots no On oxygen no Swelling of legs/feet:yes Symptoms of sleep apnea:yes Insomnia:No Asthma:yes GERD:No Gallstones: cholecystectomy Fatty liver disease:No H/o hernia:No Social History Drugs/smoking: denies Alcohol : once a month :beer or hard seltzer Occupation: school office assistant PE Ht 162.6 cm (5' 4 ) Wt 112 kg (247 lb) BMI 42.40 kg/m Constitutional:. --no issues with communication during telephone visit and demonstrates understanding via appropriate interaction, verbalizing understanding ans she consented for this visit visit telephone encounter HEENT: Normocephalic and atraumatic. Eyes: Conjunctiva appear normal. No scleral icterus. Hearing: Is grossly intact. Neck: Range of motion appears normal. Thyroid: appears symmetric and not enlarged. Pulmonary/Chest: Effort normal. Psychiatric: Mood, memory, affect and judgment normal. Neurological: alert and oriented to person, place, and time. No supraclavicular adiposity. Results: reviewed with the patient No visits with results within 3 Month(s) from this visit. Latest known visit with results is: No results found for any previous visit. ASSESSMENT/PLAN: 1. Class 3 severe obesity with serious comorbidity in adult, unspecified BMI, unspecified obesity type (HCC) - ICD9: 278.01, ICD10: E66.01 (primary diagnosis) Impression: Luz Elena Ivy is a 44 year old female with Class III obesity (Body mass index is 42.4 kg/m .) who is interested in a surgical intervention for her obesity. She has adult onset obesity with gradualweight gain despite several weight loss attempts. The causes of her obesity are multifactorial, biological, psychological and social and environmental. Specific factors include a genetic component related to a strong family of obesity, suboptimal physical activity and post weight retention. She has few weight-related medical comorbidities which increase her cardiovascular mortality risk. Significant obesity comorbidities as above, Afib/sleep apnea . Her STOPBANG score is 3 , suggesting she is at risk of obstructive sleep apnea. Had sleep study done earlier this year recommended her to see her primary care to get titration study done. Regarding lifestyle, she has a few behavioral contributors ,which include, reduced physical activity. Overall, it is clear that her quality of life is compromised by her weight. It is likely a combination of weight loss therapies will need to be initiated and she will need to be followed closely. Sheappears motivated today to lose weight and open to our recommendations. - CBC - COMP METABOLIC PANEL - HGB A1C - VITAMIN D 25 HYDROXY - VITAMIN B12 BLOOD - TSH BLD - LIPID PANEL BASIC 2. Dietary counseling and surveillance - ICD9: V65.3, ICD10: Z71.3 Reviewed principles of energy metabolism, caloric intake and expenditure, and rationale for treatment program. Also reinforced need for reduced calorie, low fat diet and increased physical activity. - CBC - COMP METABOLIC PANEL - HGB A1C - VITAMIN D 25 HYDROXY - VITAMIN B12 BLOOD - TSH BLD - LIPID PANEL BASIC 3. Body mass index 40.0-44.9, adult (HCC) - ICD9: V85.41, ICD10: Z68.41 --- counseled in length ,recommended Low carb /low sugar diet --managing maladaptive eating behaviors and adding resistance exercise. Continue low carb diet, weights/cardio exercise and increase NEAT. - CBC - COMP METABOLIC PANEL - HGB A1C - VITAMIN D 25 HYDROXY - VITAMIN B12 BLOOD - TSH BLD - LIPID PANEL BASIC 4. Vitamin D deficiency - ICD9: 268.9, ICD10: E55.9 5. Paroxysmal atrial fibrillation (HCC) - ICD9: 427.31, ICD10: I48.0 -Diagnosed October 2019. Heart rate controlled on flexion night and Toprol. Following with risk assessment consultant, we'll try to obtain records. We'll need clearance Currently not on blood thinners, was taken off of a look was in March or April of this year as was not in atrial fibrillation. - CBC - COMP METABOLIC PANEL - HGB A1C - VITAMIN D 25 HYDROXY - VITAMIN B12 BLOOD - TSH BLD - LIPID PANEL BASIC 6. Mild intermittent asthma without complication - ICD9: 493.90, ICD10: J45.20 Mild intermittent Asthma stable - Avoidance of triggers recommended - CBC - COMP METABOLIC PANEL - HGB A1C - VITAMIN D 25 HYDROXY - VITAMIN B12 BLOOD - TSH BLD - LIPID PANEL BASIC 7. Sleep apnea Niecy Peña MD Counseling Visit 30 minutes face to face for preventive counseling/IBT Screening for obesity completed during initial plan of care. Patient was competent and alert at the time that counseling was provided. 5a's reviewed: Assess- I assessed behavioral health risk/factors affecting --- Asked about/assess behavioral health risk(s) and factors affecting choice of behavior change goals --- somewhat sedentry lifestyle lifestyle --Lack of exercise -untreated sleep apnea Advise: clear, specific, personalized behavior change advice. -I gave very clear, specific, and personalized behavior change adviced, including information about personal health harms and benefits. Agree: Patient agrees with selected appropriate treatment goals and methods to change behavior Assist:provided IBT w self-help, handouts, teaching skills and support Using behavior change techniques with self-help and Counseling in achieving Goals. Also discussed supplementing with adjunctive medical treatments when appropriate. Arrange- follow up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 telephone encounter Luz Elena Ivy weight calculation is down 5# since last visit. Pt is slowly getting used to keeping a food journal most days of the week and is meeting fluid and protein goal daily. Physical Activity: Walks at the school's track 1/2 mile every other day. We discussed ideas for indoor exercise as the weather worsens (ie: Videos, chair exercises) Pt denies worsening acid reflux, abdominal pain, constipation, diarrhea, recent illnesses, recent hospitalizations, recent ED visits. Pt picked up her CPap today and plans to start using tonight. HISTORY REVIEWED (electronic chart updated): - medical history - medications - allergies PAST MEDICAL HISTORY Diagnosis Date Sleep apnea Social: Social History Tobacco Use Smoking status: Never Smoker Smokeless tobacco: Never Used Substance Use Topics Alcohol use: Not on file Drug use: Not on file Medications: Current Outpatient Medications Medication Sig metoprolol succinate ER (TOPROL XL) 25 mg 24 hr tablet Take 25 mg by mouth once daily. flecainide (TAMBOCOR) 100 mg tablet Take 100 mg by mouth twice daily. albuterol HFA (PROVENTIL HFA, VENTOLIN HFA) 90 mcg/actuation inhaler 1 2 PUFF INHALATION Q6H NEEDED FOR SHORTNESS OF BREATH OR WHEEZING calcium carbonate/vitamin D3 (CALCIUM 600 + D ORAL) Take by mouth. glucosamine HCl and sulfate (GLUCOSAMINE COMPLEX ORAL) Take by mouth. Potassium 99 mg tab Take by mouth. No current facility-administered medications for this visit. REVIEW OF SYSTEMS General: No fatigue or fevers HEENT: Negative for frequent or significant headaches, No changes in hearing or vision, no nose bleeds or other nasal problems PAP Therapy: Picked up her CPap today. GI:No nausea, vomiting, or diarrhea and No heartburn or reflux symptoms Muskuloskeletal: Negative for joint pain or swelling, back pain or muscle pain Skin: Negative for lesions, rash, and itching Psych: Negative for sleep disturbance, mood disorder and recent psychosocial stressors PHYSICAL EXAMINATION Wt 110.1 kg (242 lb 11.2 oz) BMI 41.66 kg/m2 Ht 162.6 cm (5' 4 ) BMI 41.66 kg/m2 GENERAL APPEARANCE: Pleasant, interacts appropriately and in no apparent distress. Appropriately groomed, happy, smiling, and interactive SKIN: Skin of normal texture, temperature without rashes/lesions/ulcerations. LUNGS: unlabored on room air negative findings: normal respiratory rate no cough NEURO/PSYCH: Oriented to person, place, time; appropriate insight and judgement. Appropriate affect. Diagnostic Tests Reviewed for Today's Visit No new labs The plan of treatment for Luz Elena Ivy is Further Work-up: EGD: Surgeon Upper GI: Surgeon CHICA US: Surgeon Sleep Study: Sleep apnea - Picked up CPap today and will begin using tonight CXR:Will order at next RYAN visit EKG:Will order at next RYAN visit H Pylori Surgeon Labs: Dr. Peña ordered some, Will order remaining labs at next RYAN visit Nicotine use <12 months: No Antiplatelet/anticoagulants: None Immunosuppressive therapy: No Estrogen therapy: No Evaluations Psychology: ongoing Nutrition: ongoing Education class: ongoing Clearances: Cardiac (Dr. Chapin) and PCP Risk Calculator: VTE Risk: TBD COVID-19 Risk TBD Post-op Medications: Extended Lovenox: TBD Actigall: TBD H2 sonam/PPI: TBD Next steps: Review food journaling and protein/fluid targets with dietitian Follow-up with Dr. Barragan on 12/22/2020 Follow-up with Surgeon in 4 weeks Total time in direct patient contact = 15 min. Greater than 50% of the time was spent in counselingand/or coordination of care. This note was generated using voice recognition technology and may contain grammatical errors. ASSESSMENT/PLAN: 1. Class 3 severe obesity with serious comorbidity in adult, unspecified BMI, unspecified obesity type (HCC) - ICD9: 278.01, ICD10: E66.01 (primary diagnosis) Weight decreasing - Behavioral intervention, - Medical nutrition therapy with dietitian and - Psychology 2. Obstructive sleep apnea syndrome - ICD9: 327.23, ICD10: G47.33 Begin using CPap nightly 3. Paroxysmal atrial fibrillation (HCC) - ICD9: 427.31, ICD10: I48.0 Will need cardiac clearance from Dr. Tavares Bae PA-C Coco Madrigal (Rd Ld) - 10/26/2020 11:00 AM DANIEL Ivy--visit conducted virtually d/t COVID 19 Month 2/6 Pre-Op weight goal: 237# Education Class: Patient will receive instruction regarding healthy food choices and eating behaviors identified as optimal when preparing for surgery, losing weight after surgery, and maintaining weight loss long-term. Patient will also receive instruction regarding the Bariatric Full Liquid diet following surgery and optimal post-operative high-protein supplement choices. Education class to be completed prior to surgery. Behaviors Accomplished: Visit # 2 Date: 10/25/2020 Weight: 110.1 kg (242 lb 11.2 oz) per pt reports Weight goal met: No pt has lost 5# since last encounter. Currently 5# below initial wt and 5# aboveGW. Behaviors that helped/hindered weight loss: Eating 3 meals/one snack Choose healthy foods Daily multivitamin Sip beverages slowly No high fat/fast foods Exercise: 3-4x/week walking the track at the local school--1/2 mile until knees start hurting--getting HR up 1 cup coffee daily--was 3-4 cups/day 24 hr recall: B: poptart 2, 8oz Oj L: low carb tortilla quesadilla with chicken and cheese blend D: Member[employer] pierre protein shake (30g) S: beef stick, cheese stick F: 4, 16.9oz water bottles, 11oz protein shake Written information provided and reviewed: Healthy plate/menus Behavior Checklist Journal Tracking protein intake Tracking liquid intake Patient states she has downloaded [employer]deg[employer] ryan and recently set reminders to aid with consistency with tracking. Patient admits to documenting about 3 days/week at this time, set goal of increasing to 5 days/week. Patient has already been tracking protein and fluid intake in phone ryan journal. Upon review of 24-hour recall, patient appears to be meeting 60 g protein goal and 64 ounce fluid goals averaging 83 g of protein and greater than 64 ounces of fluid. Noted patient had high sugar/high calorie items for breakfast meal with little to no protein therefore, set goal of making protein priority with each meal and opting for healthier alternatives ex. Crystal Light instead of orange juice. Patient reports she has cut back from 3-4 cups of coffee per day down to 1 cup of coffee per day, set goal of switching to half calf coffee by next appointment. Patient states she has started going to the track by her house and walking half a mile 3 4 times per week, set goal of increasing formal exercise as tolerated. Will review food journal more in-depth at next encounter. Goals: Goals Formal exercise 4-5x/week, as tolerated, goal of 20 minutes--walking Journal 5x/week and bring to all appointments--60-90g protein and 64oz fluid Switch over to half cafe coffee Try to make meals appear like MyPlate--3oz protein, 1/2 plate vegetables, adn 1/2-1 cup carbohydrates The patient meets NIH guidelines for weight loss surgery and has been thoroughly evaluated and educated on good dietary practices. Patient is capable of following these guidelines pre-and post-surgically. From nutrition standpoint, the has partially met nutrition clearance and will need to demonstrate documenting in journal at least 5x/week, cutting out all caffeine, and increasing formal exercise to receive nutrition clearance. Coco Chambers RD,LD This note was generated using voice recognition technology and may contain grammatical errors. documented in this encounter* Williams Aponte - 11/16/2020 9:11 AM EST BARIATRIC SURGERY NEW PATIENT CONSULTATION HISTORY AND PHYSICAL Date: November 16, 2020 Time: 9:11 AM Name: Luz Elena Ivy This Team Access Model encounter involved medical decision making outside of a scheduled office or virtual visit. Care included: Specialist discussion and Extensive chart review. The above patient consented for a virtual visit with audio and visual component due to the pandemic. She was alone and at home and I confirm her name and date of . I was the only provider. This is for new surgeon consultation as she considers metabolic surgery. Total time for the virtual visitwas approximately 16 minutes. This is a 44 year old female with morbid obesity (Body mass index is 41.54 kg/m .) who presents to clinic for consideration of bariatric surgery. She has suffered with weight problems most of her life. She has tried numerous weight loss programsin the past with minimal success. She would either lose minimal weight or would gain back any weight she did lose. She has numerous motivations for considering bariatric surgery including weight loss, control of obesity-related co-morbidities, quality of life improvement and overall longevity. She does have a history of A. fib on metoprolol but not on anticoagulation any longer. Has never had a history of clot. No significant cardiac history. Has mild, well-controlled asthma and new diagnosis of obstructive sleep apnea. No frequent acid reflux, dysphagia, regurgitation or vomiting. No issues with constipation or diarrhea. No melena or bright red blood per rectum. No jaundice or scleralicterus. She currently is on Covid quarantine due to exposure and has a test pending with some mildsymptoms. She works as a business services clerk. She is interested in sleeve gastrectomy due to some family member experiences an extensive research. PAST MEDICAL HISTORY: PAST MEDICAL HISTORY Diagnosis Date A-fib (HCC) Mild intermittent asthma Sleep apnea PAST SURGICAL HISTORY: PAST SURGICAL HISTORY Procedure Laterality Date TUBAL LIGATION FAMILY HISTORY: History reviewed. No pertinent family history. SOCIAL HISTORY: Social History Tobacco Use Smoking status: Never Smoker Smokeless tobacco: Never Used Substance Use Topics Alcohol use: Not on file Drug use: Not on file MEDICATIONS: Prior to Admission Medications: metoprolol succinate ER (TOPROL XL) 25 mg 24 hr tablet Take 25 mg by mouth once daily. flecainide (TAMBOCOR) 100 mg tablet Take 100 mg by mouth twice daily. albuterol HFA (PROVENTIL HFA, VENTOLIN HFA) 90 mcg/actuation inhaler 1 2 PUFF INHALATION Q6H NEEDED FOR SHORTNESS OF BREATH OR WHEEZING ALLERGIES: ALLERGIES Allergen Reactions Penicillins Other: See Comments REVIEW OF SYSTEMS: GENERAL: Negative for malaise, significant weight loss and fever RESPIRATORY: Negative for cough, wheezing or shortness of breath. CARDIOVASCULAR: Negative for chest pain, leg swelling or palpitations. GI: Negative for abdominal discomfort, blood in stools or black stools or change in bowel habits : No history of dysuria, frequency or incontinence PHYSICAL EXAM: Ht 162.6 cm (5' 4 ) Wt 109.8 kg (242 lb) BMI 41.54 kg/m General appearance: Suffers from severe obesity, appears stated age, no obvious distress, no jaundice or scleral icterus Head and neck: Normocephalic with increased neck circumference Respiratory; breathing comfortably without accessory muscle usage, no audible cough or wheeze, speaking in full sentences Abdomen: Central obesity, not obviously distended Neuro: Alert and oriented, no dysarthria or obvious nystagmus IMPRESSION: Luz Elena Ivy is a 44 year old female with the following diagnosis and co-morbidities: Body mass index is 41.54 kg/m ., Obstructive sleep apnea Diagnosis noted as above, no additional diagnosis at this time. This patient does meet the criteria for a surgical weight loss procedure according to NIH guidelines. PLAN: The plan of treatment for Luz Elena Ivy is to continue with the consultations and tests ordered today in hopes of qualifying for pre-operative clearance for bariatric surgery. Patient is interested in: Sleeve gastrectomy Needs EGD - booked today Ultrasound of RUQ before surgery Continue with psychology and nutrition assessment Williams Aponte MD Advanced Laparoscopic and Bariatric Surgery *This note was generated using voice recognition technology and may contain grammatical errors Ramya Mehta (Stereoptic Projection Topographer Supervisor Covering [employer]) - 11/16/2020 9:00 AM DANIEL Ivy is a 44 year old female who presents today to be evaluated for bariatric surgery. Her PMH is significant for obesity, afib (metoprolol and flecainide), asthma (mild), and CAROL (CPAP). Her surgical history is significant for tubal ligation Further Work-up: Required visit: 02/04 EGD: Surgeon Upper GI: Surgeon CHICA US: Surgeon Sleep Study: Sleep apnea - uses CPAP CXR:pending, ordered today EKG: per cardiac clearance H Pylori Surgeon Labs: pending, remaining ordered today Nicotine use <12 months: No Antiplatelet/anticoagulants: None Immunosuppressive therapy: No Estrogen therapy: No Evaluations Psychology: ongoing Nutrition: ongoing Education class: NEEDS Clearances: Cardiac (Dr. Chapin) (requested today) and PCP Risk Calculator: VTE Risk: TBD COVID-19 Risk TBD Post-op Medications: Extended Lovenox: TBD Actigall: TBD H2 sonam/PPI: Will need Tylenol: will need Ramya Lama APRN.[employer]IPER Coco Madrigal ([place]af[place] Ld) - 11/16/2020 9:00 AM DANIEL Ivy--Visit conducted via phone call d/t COVID 19 Month 02/04 Pre-Op weight goal: 237# Education Class: Patient will receive instruction regarding healthy food choices and eating behaviors identified as optimal when preparing for surgery, losing weight after surgery, and maintaining weight loss long-term. Patient will also receive instruction regarding the Bariatric Full Liquid diet following surgery and optimal post-operative high-protein supplement choices. Education class to be completed prior to surgery. Behaviors Accomplished: Visit # 3 Date: 11/15/2020 Weight: 109.8 kg (242 lb) per pt reports Weight goal met: No pt has maintained wt since last encounter. Currently 5# below initial wt and 5#above GW. Behaviors that helped/hindered weight loss: Keeping journal daily Eating 3 meals/one snack Choose healthy foods Daily multivitamin No high fat/fast foods D/c'd caffeinated, carbonated beverages Exercise: no formal exercise at this time 24 hr recall: B: protein shake L: protein shake D: homemade bowl with brown rice, 6oz chicken, 2 Tbsp black beans, sour cream, and corn S: none F: 64oz water, 22oz protein shakes Written information provided and reviewed: Healthy plate/menus Behavior Checklist Journal Tracking protein intake Tracking liquid intake Patient reports she has not been keeping a food journal over the last month. Did advise patient to stay consistent with documenting in food journal at least 5 days/week to ensure protein and fluid goals are consistently met. Upon review of 24-hour recall, patient appears to be meeting 60 g protein and 64 ounce fluid goals averaging 112 g of protein 86 ounces of fluid. Do note larger portion sizes for dinner meal therefore, did suggest limiting protein intake to 3-4 ounces per meal. Also, patient does report yesterday was a rare occurrence that she had 2 protein shakes as she recently had a in the family therefor e, was making arrangements yesterday. Commended patient on utilizing protein shakes versus opting for low protein snacks or skipping a meal. Also, commended patient on cutting out all caffeinated coffee over the last month. Patient does admit to no formal exercise at this time given increased stress however, set goal of getting back into routine, aiming for 4-5 days/week ensuring her heart rate is becoming elevated. Will review protein fluid calculations as well as food journal at next appointment. Goals: Goals Formal exercise 4-5x/week, as tolerated, goal of 20 minutes--walking Journal 5x/week and bring to all appointments--60-90g protein and 64oz fluid Try to make meals appear like MyPlate--3oz protein, 1/2 plate vegetables, ang 1/2-1 cup carbohydrates The patient meets NIH guidelines for weight loss surgery and has been thoroughly evaluated and educated on good dietary practices. Patient is capable of following these guidelines pre-and post-surgically. From nutrition standpoint, the has partially met nutrition clearance and will need to demonstrate keeping a food journal at least 5x/week and increasing formal exercise to receive nutrition clearance. Total time in direct patient contact = 15 min. Greater than 50% of the time was spent in counselingand/or coordination of care. Coco Chambers RD,LD This note was generated using voice recognition technology and may contain grammatical errors. documented in this encounter Assessments Diagnosis Class 3 severe obesity with serious comorbidity in adult, unspecified BMI, unspecified obesity type (HCC)- Primary Dietary counseling and surveillance Dietary surveillance and counseling Body mass index 40.0-44.9, adult (HCC) Body Mass Index 40.0-44.9, adult Vitamin D deficiency Unspecified vitamin D deficiency Paroxysmal atrial fibrillation (HCC) Atrial fibrillation Mild intermittent asthma without complication Unspecified asthma Obstructive sleep apnea syndrome Obstructive sleep apnea (adult) (pediatric) Diagnosis Dietary counseling and surveillance Dietary surveillance and counseling Diagnosis Psychological factors affecting medical condition- Primary Psychic factors associated with diseases classified elsewhere Class 3 severe obesity with serious comorbidity and body mass index (BMI) of 40.0 to 44.9 in adult, unspecified obesity type (HCC) Anxiety disorder, unspecified type Binge eating disorder Diagnosis Class 3 severe obesity with serious comorbidity in adult, unspecified BMI, unspecified obesity type (HCC)- Primary Obstructive sleep apnea syndrome Obstructive sleep apnea (adult) (pediatric) Paroxysmal atrial fibrillation (HCC) Atrial fibrillation Diagnosis Class 3 severe obesity with serious comorbidity in adult, unspecified BMI, unspecified obesity type (HCC)- Primary Diagnosis Class 3 severe obesity due to excess calories without serious comorbidity in adult, unspecified BMI (HCC)- Primary Class 3 severe obesity due to excess calories without serious comorbidity in adult, unspecified BMI (HCC) Diagnosis Class 3 severe obesity with serious comorbidity in adult, unspecified BMI, unspecified obesity type (HCC) Class 3 severe obesity due to excess calories without serious comorbidity in adult, unspecified BMI (HCC) Additional Source Comments INFORMATION SOURCE (unrecogn ized section and content) DATE CREATED AUTHOR AUTHOR'S ORGANIZ ATION 05/26/2019 [facility] DATE CREATED AUTHOR AUTHOR'S ORGANIZ ATION 05/20/2021 [facility] DATE CREATED AUTHOR AUTHOR'S ORGANIZ ATION 02/19/2022 [facility] DATE CREATED AUTHOR AUTHOR'S ORGANIZ ATION 03/09/2023 [facility] Source Comments (unrecognize d section and content) In the event this informatio n is protected by the Federal Confidentiality of Alcohol and Drug Abuse Patient Records regulations: The Federal rules restrict any use of the information to criminally investigate or prosecute any alcohol or drug abuse patient.[facility] the event this information is protected by the Federal Confidentiality of Alcohol and Drug Abuse Patient Records regulations: The Federal rules restrict any use of the information to criminally investigate or prosecute any alcohol or drug abuse patient.[facility] the event this information is protected by the Federal Confidentiality of Alcohol and Drug Abuse Patient Records regulations: The Federal rules restrict any use of the information to criminally investigate or prosecute any alcohol or drug abuse patient.[facility] the event this information is protected by the Federal Confidentiality of Alcohol and Drug Abuse Patient Records regulations: The Federal rules restrict any use of the information to criminally investigate or prosecute any alcohol or drug abuse patient.[facility] the event this information is protected by the Federal Confidentiality of Alcohol and Drug Abuse Patient Records regulations: The Federal rules restrict any use of the information to criminally investigate or prosecute any alcohol or drug abuse patient.[facility] the event this information is protected by the Federal Confidentiality of Alcohol and Drug Abuse Patient Records regulations: The Federal rules restrict any use of the information to criminally investigate or prosecute any alcohol or drug abuse patient.[facility] Hospital[facility] the event this information is protected by the Federal Confidentiality of Alcohol and Drug Abuse Patient Records regulations: The Federal rules restrict any use of the information to criminally investigate or prosecute any alcohol or drug abuse patient.[facility] the event this information is protected by the Federal Confidentiality of Alcohol and Drug Abuse Patient Records regulations: The Federal rules restrict any use of the information to criminally investigate or prosecute any alcohol or drug abuse patient.[facility] Hospital[facility] the event this information is protected by the Federal Confidentiality of Alcohol and Drug Abuse Patient Records regulations: The Federal rules restrict any use of the information to criminally investigate or prosecute any alcohol or drug abuse patient.[facility] Reason for Visit (unrecogniz ed section and content) Reason Comments Weight Problem Reason Comments Obesity Reason Comments Psychotherapy Evaluation (DX Interview) Reason Comments Established Patient Reason Comments Follow Up Reason Comments Bariatric Investigation Telephone Encounter - Joycelyn Mckeon - 08/24/2020 11:21 AM EDT Miscellaneous Notes (unrecog nized section and content) Insurance Verification Insurance Company: [facility] Choice Provider Phone #: [phone] Agent:Pierre Reference #: [id number] [facility] Center of Excellence: yes Months of Wt Loss: 6 Consecutive:yes COVERAGE: RNY/BAND/SLEEVE Single 80 % 750 Deductible 5400 Out of Pocket NOTES: Patient reassigned to [facility] due to [facility] DEISY requirement. Red pathway. Needs MEASURER MACHINE or Jaclynkar (60 minutes), SNA (60 min on a at 10:00), psychology with disclosure (120 minutes). Left message with patient. Joycelyn Garcia documented in this encounter Care Teams (unrecognized sec tion and content) FOR RECORDS PERTAINING TO PATIENTS WHO ARE OR HAVE BEEN ENROLLED IN A CHEMICAL DEPENDENCY/SUBSTANCEABUSE PROGRAM, SOME INFORMATION MAY BE OMITTED. This clinical summary was aggregated from multiple sources. Caution should be exercised in using it in the provision of clinical care. This summary normalizes information from multiple sources, and as a consequence, information in this document may materially change the coding, format and clinical context of patient data. In addition, data may be omitted in some cases. CLINICAL DECISIONS SHOULD BE BASED ON THE PRIMARY CLINICAL RECORDS. [employer] [facility]. provides no warranty or guarantee of the accuracy or completeness of information in this document.
[2024-01-12 05:45] VITALS: BP 107/71; PULSE 106; RESP 22; O2SAT 99
[2024-01-12] MEDS: 0.9% Normal Saline (500mL Bag) 500 ML 999 ML IV (06:01)
[2024-01-12 06:02] VITALS: BP 113/66; PULSE 90; RESP 27; O2SAT 94
--- NOTE | 2024-01-12 06:11 | EKG12_ITS ---
Test Reason : DYSRHYTHMIA Blood Pressure : / mmHG Vent. Rate : 127 BPM Atrial Rate : 000 BPM P-R Int : 000 ms QRS Dur : 078 ms QT Int : 268 ms P-R-T Axes : 000 045 028 degrees QTc Int : 389 ms Atrial fibrillation with rapid ventricular response Abnormal ECG Confirmed by Damien Goyal ([id number]), assignment editor ZECHARIAH NORIEGA ([id number]) on 01/14/2024 9:22:50 AM Referred By: CAROLIN Confirmed By:Damien Goyal
[2024-01-12 06:12] LABS: Anion Gap 6 (5-15); BUN 19 mg/dL (7-18); BUN/Creat Ratio 32.4 RATIO (10-20); Calcium,Total 9.1 mg/dL (8.5-10.1); Chloride 109 mmol/L (98-107); Creatinine, Serum 0.59 mg/dL (0.55-1.02); EST Glomerular Filtration Rate 116 mL/min (>60); Est Glom Filt Rate - Afr Amer 141 mL/min (>60); Estimated Creatinine Clearance 124.44 ml/min; Glucose 92 mg/dL (74-106); Magnesium 2.1 mg/dL (1.6-2.6); Potassium 3.4 mmol/L (3.5-5.1); Sodium Level 140 mmol/L (136-145); Thyroid Stim Hormone (TSH) 6.11 uIU/mL (0.358-3.74); Troponin-I HS (w/2H Reflex) 4 pg/mL (3.0-54.0)
[2024-01-12] MEDS: Potassium Chloride Oral Tablet 20 MEQ 40 MEQ PO (06:38)
[2024-01-12 07:05] LABS: Free T3 2.3 pg/mL (2.18-3.98)
[2024-01-12 07:12] LABS: Reflex Troponin-HS? (from REC) Y
== END 2024-01-12 06:52 | disposition home or self-care (01) ==
PROVIDERS: Emergency Provider Emergency Medicine; PCP Internal Medicine; Visit Provider Emergency Medicine
DX: I48.0 Paroxysmal atrial fibrillation (principal); E11.9 Type 2 diabetes mellitus without complications; R06.00 Dyspnea, unspecified
CPT/HCPCS: 71045; 80048; 83735; 84439; 84443; 84481; 84484; 85025; 93005; 96361; 96374; 99283; J7030; A4216

== ENCOUNTER → 2024-03-04 | Outpatient (CLI) | payer OTHER, SELFPAY ==
--- NOTE | 2024-03-04 09:31 | BI_ITS ---
MAMMOGRAPHY - BILATERAL SCREENING REASON FOR EXAM: Female, 48 years old. Routine annual screening examination. PERTINENT HISTORY: Non-contributory. TECHNIQUE: Digital bilateral breast christine (3D mammographic acquisition) in the CC and MLO projections. 2-D mediolateral oblique (MLO) and craniocaudad (CC) views of both breasts were obtained. CAD: Full Field Digital Mammography with Computer Added Detection was performed. COMPARISON: Comparison is made with prior study dated February 26, 2023 and November 29, 2021. FINDINGS: Breast Composition: The breasts are almost entirely fatty. There are no dominant masses or suspicious calcifications. No other significant abnormalities are identified. There has been no significant change since the prior study. BI/SCRN MAMM (CAD)W/CHRISTINE BILAT IMPRESSION: Stable bilateral screening mammogram. Yearly follow-up mammogram recommended. (A) ASSESSMENT CATEGORY: BIRADS Category 1: Negative. A letter regarding these results will be sent to the patient by the facility within 30 days. Approximately 10% of breast cancers are not detected by mammography. A normal mammogram should not delay biopsy of a clinically suspicious abnormality. [id number] Electronically Signed: Farhad Ornelas MD at 11:48 EDT ,
== END | disposition home or self-care (01) ==
LOC: OPBI 09:31
PROVIDERS: PCP Internal Medicine; Referring Provider Internal Medicine; Visit Provider Internal Medicine
DX: Z12.31 Encounter for screening mammogram for malignant neoplasm of breast (principal)
CPT/HCPCS: 77063; 77067

== ENCOUNTER 2024-11-05 14:20 | Inpatient (IN) | payer OTHER, SELFPAY ==
[2024-11-05] VITALS (23 sets, daily range): BP systolic 77–171; BP diastolic 54–111; PULSE 67–173; RESP 19–23; TEMP 36.6–36.8; O2SAT 95–100; BMI 34.7; BMI 34.2
--- NOTE | 2024-11-05 14:30 | EKG12_ITS ---
Test Reason : Blood Pressure : */* mmHG Vent. Rate : 159 BPM Atrial Rate : * BPM P-R Int : * ms QRS Dur : 68 ms QT Int : 286 ms P-R-T Axes : * 49 52 degrees QTcB Int : 465 ms Critical Test Result: High HR Atrial fibrillation with rapid ventricular response Nonspecific ST and T wave abnormality Abnormal ECG Confirmed by Damien Goyal ([id number]), editor newspaper MEETA VILA ([id number]) on 11/06/2024 1:45:31 PM Referred By: Matteo Moreno Confirmed By: Damien Goyal
[2024-11-05] MEDS: Adenosine 6 MG/2 ML Syringe IV (14:53)
[2024-11-05] MEDS: Adenosine 6 MG/2 ML Syringe 12 MG IV (14:56)
[2024-11-05 15:05] LABS: Absolute Lymphocyte Count 1.93 X10^3/uL (0.83-4.51); Absolute Neutrophil Count 4.1 X10^3/uL (2.0-7.7); Basophil# 0.04 X10^3/uL; Basophil% 0.6 % (0-1); Eosinophil# 0.21 X10^3/uL; Eosinophils% 3.1 % (0-5); Hemoglobin 13.4 g/dL (12.0-15.0); Lymphocyte # 1.93 X10^3/ul (0.83-4.51); Lymphocyte % 28.3 % (19-41); Mean Corp Hgb Conc 34.4 g/dL (32-36); Mean Corpuscular Hgb 28.3 pg (27.0-32.0); Mean Corpuscular Volume 82.5 fL (81-99); Mean Platelet Vol. 9.3 fl (6.2-12.0); Monocyte% 7.3 % (0-10); NRBC Flagged by Analyzer 0 % (0-5); Neutrophil # 4.11 X10^3/uL (2.7-7.7); Neutrophil % 60.4 % (47-70); Platelet Count 229 K/mm3 (150-450); RBC Distribution Width CV 12.5 % (11.6-14.6); RBC Distribution Width SD 37.9 fl (35.1-43.9); Red Blood Count 4.73 M/mm3 (4.2-5.4); White Blood Count 6.8 K/mm3 (4.4-11.0)
--- NOTE | 2024-11-05 15:06 | EDS_ITS ---
HPI History of Present Illness Chief Complaint: Palpitations Narrative Narrative: Patient is a 48-year-old female with past medical history of paroxysmal atrial fibrillation,, CAROL who presents to the emergency department with a chief complaint of I went into an A-fib episode. Patient states that this started around 130 this afternoon and was not improving therefore she came here for further evaluation management. Patient denies any recent travel history denies any history of blood clots. Patient states that she otherwise is feeling well and has not been sick recently. Patient does states that she has some shortness of breath associated with this. PFSH PFS Medical History Health care maintenance Colon cancer screening Hot flashes Intertriginous dermatitis associated with moisture Excessive and redundant skin and subcutaneous tissue Obesity, Class I, BMI 30-34.9 Striae atrophic Hemoglobin A1c less than 7.0% Recent weight loss Abdominal panniculus Gallstones Intertrigo Elevated LFTs Type 2 diabetes mellitus URI (upper respiratory infection) Lymphadenopathy COVID-19 (08/16/21) Preoperative evaluation to rule out surgical contraindication Morbid obesity Wrist pain, right Chronic cough Obstructive sleep apnea Obesity Atrial fibrillation with RVR (09/2019) Paroxysmal A-fib (09/2019) History of blood transfusion Chronic back pain Carpal tunnel syndrome Home Medications ?Medication ?Instructions ?Recorded ?Last Taken ?Type semaglutide 2 mg/dose (8 mg/3 mL) 0.6667 mg subcut QWEEK 11/05/24 11/05/24 History subcutaneous pen injector (Ozempic) Allergy/AdvReac Type Severity Reaction Status Date / Time Penicillins Allergy Rash Verified 11/05/24 14:21 Family History Father Diabetes Mother Cancer ovarian and thyroid Grandmother Dementia Other Arthritis Mental problems Surgical History History of tubal ligation History of cholecystectomy History of bunionectomy Social History household members: significant other Smoking Status: Never smoker alcohol intake: current substance use type: does not use what type of physical activity do you participate in: none additional social history: Does Take Aspirin As Needed Does Take Ibuprofen As Needed ROS ROS ED ROS Narrative Constitutional: Denies any fevers, chills, headaches, lightness, dizziness Eyes: Denies changes vision double vision blurry vision Cardiovascular: Denies chest pain or palpitations Respiratory: Mild shortness of breath as noted above denies coughing wheezing Abdomen: Denies abdominal pain nausea vomit diarrhea : Denies any urinary symptoms Neurological: Denies any numbness, wheeze, tingling Musculoskeletal: Denies back pain Skin: Denies rashes or lesions EXAM Physical Exam Narrative Exam Narrative: general: Patient lying in bed rest comfortably did not appear to be in acute distress Head: Atraumatic, normocephalic Eyes: PERRL bilateral, EOMI bilateral, no conjunctival injection noted Neck: Soft, supple, trach midline Cardiovascular: Patient had a narrow complex tachycardic rhythm Respiratory: Clear to auscultation bilaterally Abdomen: Soft, nondistended, no tenderness palpation can bowel sounds present x 4 Extremities: +5/5 strength noted in the bilateral upper and lower extremities, no pedal edema no exam Neurological: Patient follow commands knew that she was at [facility] year is 2023 Skin: Warm, dry, intact Const Vital Signs: 11/05/24 14:21 11/05/24 14:24 11/05/24 14:31 Temperature 97.8 F Temperature Source Oral Pulse Rate 173 H Respiratory Rate 22 H Respiratory Effort Short of Breath Blood Pressure 171/111 H Blood Pressure Mean 131 Pulse Ox 96 Oxygen Delivery Method Room Air Room Air 11/05/24 15:21 11/05/24 15:59 11/05/24 16:00 Temperature Temperature Source Pulse Rate 115 H 124 H 123 H Respiratory Rate 20 H Respiratory Effort Blood Pressure 105/83 H 101/79 101/79 Blood Pressure Mean 90 86 86 Pulse Ox 98 Oxygen Delivery Method Room Air 11/05/24 16:25 11/05/24 16:55 11/05/24 17:00 Temperature Temperature Source Pulse Rate 120 H 141 H 122 H Respiratory Rate 20 H Respiratory Effort Blood Pressure 98/66 111/77 101/61 Blood Pressure Mean 76 88 74 Pulse Ox 99 Oxygen Delivery Method 11/05/24 17:29 11/05/24 18:10 Temperature Temperature Source Pulse Rate 120 H 148 H Respiratory Rate 21 H Respiratory Effort Blood Pressure 113/73 84/75 L Blood Pressure Mean 86 78 Pulse Ox 98 Oxygen Delivery Method Room Air MDM MDM MDM Narrative Medical decision making narrative: Patient is a 40-year-old female who presents to the emergency department the chief complaint of shortness of breath and concern of going into A-fib. Patient will have workup performed here on the differential diagnose includes but not limited to atrial fibrillation with rapid ventricular response, SVT, atrial flutter. Once workup is obtained reviewed she will be reevaluated. Patient's heart rate was noted to be in the 160-170 region attempted vagal maneuver with the syringe method and after lying the patient down her heart rate normalized and was noted to be around 80 bpm however after setting her up her heart rate went to the 150-160 region. Her heart rate also was variable and would be in the 130 region. Patient was given 6 mg of adenosine and then 12 mg adenosine her heart rate was in the normal range for a very short period of time and then returned to 150. She will be ordered a bolus Cardizem and placed on Cardizem drip. Patient heart rate remained elevated therefore she was placed on Cardizem drip. Patient's CBC reviewed and showed no evidence leukocytosis white blood count normal at 6.8, hemoglobin 13.4, platelet count was noted be 229. Patient D- dimer was noted to be normal at 0.27. Patient's sodium normal 138, potassium normal 3.6, creatinine normal at 0.69. Patient's troponin was noted to be normal at 4. Patient's EKG reviewed and independently interpreted by myself which showed atrial fibrillation with rapid ventricular response with a rate of 159 beats per minutes. Patient's BNP normal at 4.1, TSH was normal at 2.12. Patient's chest x-ray reviewed by myself and by radiology showed mild degree of vascular congestion. On reevaluation the patient her heart rate is still bouncing around between 115- 135. I did review the previous records and at a previous hospitalization the patient was given flecainide metoprolol and after the third dose of flecainide converted to sinus rhythm. I called and discussed case with on-call fire prevention research engineer Dr. Goyal who is recommending giving the patient 25 mg of oral tartrate and 100 mg of flecainide now and leaving her on the Cardizem drip. He states that if she converts the patient can be discharged home on metoprolol tartrate 25 mg twice daily if she does not she can be admitted and she will be given flecainide 100 mg twice daily and be evaluated by the cardiology team. On reevaluation the patient and she is still tachycardic to the 115 to 130 bpm therefore patient will require admission to the hospital will discuss case with hospitalist. Discussed case with hospitalist Dr. Horn who accept the patient for admission. Patient notified is agreeable this plan all question concerns were answered. Critical care time 50 minutes Lab Data Labs: Laboratory Results - last 24 hr 11/05/24 14:55 WBC 6.8 RBC 4.73 Hgb 13.4 Hct 39.0 MCV 82.5 MCH 28.3 MCHC 34.4 RDW Std Deviation 37.9 RDW Coeff of Salome 12.5 Plt Count 229 MPV 9.3 Immature Gran % (Auto) 0.300 Neut % (Auto) 60.4 Lymph % (Auto) 28.3 [place] % (Auto) 7.3 Eos % (Auto) 3.1 Baso % (Auto) 0.6 Absolute Neuts (auto) 4.1 Absolute Lymphs (auto) 1.93 Nucleated RBC % 0 D-Dimer Quant (PE/DVT) 0.27 Sodium 138 Potassium 3.6 Chloride 107 Carbon Dioxide 25.0 Anion Gap 6 BUN 21 H Creatinine 0.69 Estim Creat Clear Calc 113.32 Est GFR (MDRD) Af Amer 117 Est GFR (MDRD) Non-Af 97 BUN/Creatinine Ratio 30.6 H Glucose 142 H Calcium 9.6 Troponin I High Sens 4 B-Natriuretic Peptide 4.1 TSH 2.120 Radiography Diagnostic Testing: Clinical Impression(s) from Imaging Studies Chest X-Ray 11/05/24 15:15 IMPRESSION: Mild degree of vascular congestion. Electronically Signed: Farhad Ornelas MD at 15:31 EST , Discharge Plan Triage Chief Complaint: Palpitations ED Provider: Matteo Moreno Dx/Rx/DC Orders Clinical Impression: Atrial fibrillation with rapid ventricular response Prescriptions: No Action Ozempic 2 mg/dose (8 mg/3 mL) pen injector 0.6667 mg subcut QWEEK Primary Care Provider: Peter Bush Referrals: Peter Bush MD [Primary Care Provider] - Print Language: Amharic Disposition Disposition: Acute Care Hospital [facility]
[2024-11-05] MEDS: dilTIAZem 25 MG/5 ML Vial 20 MG IV BOLUS (15:08)
--- NOTE | 2024-11-05 15:15 | RAD_ITS ---
STUDY: X-RAY CHEST REASON FOR EXAM: Female, 48 years old. Chest pain TECHNIQUE: Single AP portable view of the chest. COMPARISON: Comparison is made with prior study dated January 12, 2024. FINDINGS: EKG electrodes are seen. Mild degree of vascular congestion. There is no demonstrated pleural abnormality. Normal size heart. Normal mediastinum and liat. Normal visualized pulmonary arteries. Normal visualized aortic arch and descending thoracic aorta. Normal visualized thoracic spine. Normal visualized ribs, clavicles, and shoulders. There is no demonstrated abnormality of the visualized soft tissue structures of the upper abdomen. RAD/Chest 1 View (Portable) IMPRESSION: Mild degree of vascular congestion. Electronically Signed: Farhad Ornelas MD at 15:31 EST ,
--- NOTE | 2024-11-05 15:37 | EKG12_ITS ---
Test Reason : AF Blood Pressure : */* mmHG Vent. Rate : 123 BPM Atrial Rate : * BPM P-R Int : * ms QRS Dur : 76 ms QT Int : 318 ms P-R-T Axes : * 42 21 degrees QTcB Int : 455 ms Atrial fibrillation with rapid ventricular response Abnormal ECG Confirmed by Damien Goyal ([id number]), editor school photograph MEETA VILA ([id number]) on 11/06/2024 1:43:52 PM Referred By: Matteo Moreno Confirmed By: Damien Goyal
[2024-11-05 15:48] LABS: Anion Gap 6 (5-15); BUN 21 mg/dL (7-18); BUN/Creat Ratio 30.6 RATIO (10-20); Calcium,Total 9.6 mg/dL (8.5-10.1); Chloride 107 mmol/L (98-107); Creatinine, Serum 0.69 mg/dL (0.55-1.02); EST Glomerular Filtration Rate 97 mL/min (>60); Est Glom Filt Rate - Afr Amer 117 mL/min (>60); Estimated Creatinine Clearance 113.32 ml/min; Glucose 142 mg/dL (74-106); Potassium 3.6 mmol/L (3.5-5.1); Sodium Level 138 mmol/L (136-145); Troponin-I HS (w/2H Reflex) 4 pg/mL (3.0-54.0)
[2024-11-05 15:57] LABS: BNP,B-Type NATRIURETIC PEPTIDE 4.1 pg/mL (0-100)
[2024-11-05] MEDS: Diltiazem 125 MG in Dextrose 5%-Water (100mL Bag) 100 ML IV (15:59)
[2024-11-05 16:32] LABS: D-Dimer Quantitative (DVT/PE) 0.27 FEU/ug/m (0.27-0.49)
[2024-11-05] MEDS: Metoprolol Tartrate 25 MG Tablet PO (16:56)
[2024-11-05] MEDS: Flecainide 100 MG Tablet PO (16:56)
[2024-11-05 17:02] LABS: Reflex Troponin-HS? (from REC) Y
--- NOTE | 2024-11-05 18:32 | PCM.HP.STD ---
HPI - General General Date of Admission: 11/05/24 Date of Service: 11/05/24 Chief Complaint: Racing heart HPI Narrative ROSE IVY, is a 40-year-old female history of paroxysmal atrial fibrillation, DM, and previous CAROL who presented to [facility] ED 11/05/2024 stating she went back into A-fib at around 130 this afternoon and was not improving so she came to the ED for evaluation. On arrival heart rate 160s to 170s. Vagal maneuver when she was lying down normalized heart rate and it was 80 bpm however when she was sat up again it went back to 150s to 160s. Was given 6 of adenosine and 12 of adenosine with heart rate returning to normal range for very short period of time before increasing to 150 again. She was given a Cardizem bolus and drip and cardiology was contacted who recommended giving the patient 25 mg of metoprolol tartrate 100 mg of flecainide now while on the Cardizem drip and if she converts she can be discharged home on metoprolol 25 twice daily and if not she can be admitted and she be started on flecainide and cardiology to evaluate. Patient did not convert so hospitalist contacted for admission. Patient evaluated at bedside. Patient reports that the last time she had to be hospitalized for her A-fib with RVR was 5 years ago, since then she will get brief episodes in a couple years ago she did have to come to the ED and was given medicine and converted and went home but has not had any other sustained episodes until today at 130 when she noticed her heart racing. Given that it usually breaks on its own she waited however did not improve she came to the ED. In the ED initially vagal maneuvers did slow her heart rate down and she was given adenosine twice, and heart rate slowed down her rhythm was noted to be A-fib. She endorses that she has some shortness of breath when her heart is racing up towards the 160s and she feels tired and gets the chest tightness however when heart rate is closer to 100 she does begin to feel better, heart rate still significantly variable. She reports last she had a temperature greater than 101 and a runny nose and sore throat but that only lasted a day and then she was back to her baseline. Presently other than the chest tightness feeling and shortness of breath and fatigue with elevations in her heart rate ROS otherwise negative. [facility] Medical History Health care maintenance Colon cancer screening Hot flashes Intertriginous dermatitis associated with moisture Excessive and redundant skin and subcutaneous tissue Obesity, Class I, BMI 30-34.9 Striae atrophic Hemoglobin A1c less than 7.0% Recent weight loss Abdominal panniculus Gallstones Intertrigo Elevated LFTs Type 2 diabetes mellitus URI (upper respiratory infection) Lymphadenopathy COVID-19 (08/16/21) Preoperative evaluation to rule out surgical contraindication Morbid obesity Wrist pain, right Chronic cough Obstructive sleep apnea Obesity Atrial fibrillation with RVR (09/2019) Paroxysmal A-fib (09/2019) History of blood transfusion Chronic back pain Carpal tunnel syndrome Home Medications ?Medication ?Instructions ?Recorded ?Last Taken ?Type semaglutide 2 mg/dose (8 mg/3 mL) 0.6667 mg subcut QWEEK 11/05/24 11/05/24 History subcutaneous pen injector (Ozempic) Allergy/AdvReac Type Severity Reaction Status Date / Time Penicillins Allergy Rash Verified 11/05/24 14:21 Family History Father Diabetes Mother Cancer ovarian and thyroid Grandmother Dementia Other Arthritis Mental problems Surgical History History of tubal ligation History of cholecystectomy History of bunionectomy Social History household members: significant other Smoking Status: Never smoker alcohol intake: current substance use type: does not use what type of physical activity do you participate in: none additional social history: Does Take Aspirin As Needed Does Take Ibuprofen As Needed ROS ROS Narrative General: Had a fever last week which is resolved HENT: Denies headache, stuffy nose and sore throat last week which resolved EYES: Denies changes in vision Resp: Does have some shortness of breath with her elevated heart rate Cardiac: Gets some chest tightness GI: Denies abdominal pain, denies changes in bowel, denies nausea/vomiting : Denies changes in urination Extremity: Denies swelling MSK: Denies weakness Neuro: Denies any numbness/tingling Heme: Denies any bleeding or bruising Skin: Denies rashes Psychiatric: No complaints voiced Vital Signs Vital Signs Vital Signs: 11/05/24 14:21 11/05/24 14:24 11/05/24 14:31 Temperature 97.8 F Temperature Source Oral Pulse Rate 173 H Respiratory Rate 22 H Respiratory Effort Short of Breath Blood Pressure 171/111 H Blood Pressure Mean 131 Pulse Ox 96 Oxygen Delivery Method Room Air Room Air 11/05/24 15:21 11/05/24 15:59 11/05/24 16:00 Temperature Temperature Source Pulse Rate 115 H 124 H 123 H Respiratory Rate 20 H Respiratory Effort Blood Pressure 105/83 H 101/79 101/79 Blood Pressure Mean 90 86 86 Pulse Ox 98 Oxygen Delivery Method Room Air 11/05/24 16:25 11/05/24 16:55 11/05/24 17:00 Temperature Temperature Source Pulse Rate 120 H 141 H 122 H Respiratory Rate 20 H Respiratory Effort Blood Pressure 98/66 111/77 101/61 Blood Pressure Mean 76 88 74 Pulse Ox 99 Oxygen Delivery Method 11/05/24 17:29 11/05/24 18:10 11/05/24 18:19 Temperature Temperature Source Pulse Rate 120 H 148 H 120 H Respiratory Rate 21 H 19 H Respiratory Effort Blood Pressure 113/73 84/75 L 113/67 Blood Pressure Mean 86 78 82 Pulse Ox 98 98 Oxygen Delivery Method Weight Weight: 94.483 kg Body Mass Index (BMI) 34.7 Physical Exam Narrative General: Alert, oriented, no apparent distress HEENT: Atraumatic, normocephalic Eyes: Anicteric, normal conjunctiva, extraocular movements grossly intact Neck: Supple Respiratory: Clear to auscultation bilaterally, normal respiratory effort Cardiovascular: Tachycardic, irregularly irregular, heart rate anywhere from 90-252 during evaluation GI: Soft, nontender, nondistended Extremities: No edema Musculoskeletal: Moving all extremities Neuro: No overt focal neurological deficits Skin: No rashes appreciated Psych: Cooperative Results Lab / Micro Data 11/05/24 14:55 11/05/24 14:55 Labs: Laboratory Results - last 24 hr 11/05/24 14:55: WBC 6.8, RBC 4.73, Hgb 13.4, Hct 39.0, MCV 82.5, MCH 28.3, MCHC 34.4, RDW Std Deviation 37.9, RDW Coeff of Salome 12.5, Plt Count 229, MPV 9.3, Immature Gran % (Auto) 0.300, Neut % (Auto) 60.4, Lymph % (Auto) 28.3, [place] % (Auto) 7.3, Eos % (Auto) 3.1, Baso % (Auto) 0.6, Absolute Neuts (auto) 4.1, Absolute Lymphs (auto) 1.93, Nucleated RBC % 0, D-Dimer Quant (PE/DVT) 0.27, Sodium 138, Potassium 3.6, Chloride 107, Carbon Dioxide 25.0, Anion Gap 6, BUN 21 H, Creatinine 0.69, Estim Creat Clear Calc 113.32, Est GFR (MDRD) Af Amer 117, Est GFR (MDRD) Non-Af 97, BUN/Creatinine Ratio 30.6 H, Glucose 142 H, Calcium 9.6, Troponin I High Sens 4, B-Natriuretic Peptide 4.1, TSH 2.120 Imaging Radiology Impression Chest X-Ray 11/05/24 15:15 IMPRESSION: Mild degree of vascular congestion. Electronically Signed: Farhad Ornelas MD at 15:31 EST Reading Location ID and State: [facility] / [place] , Service support , Assessment & Plan Assessment/Plan (1) Atrial fibrillation with rapid ventricular response: PLAN: Plan # A-fib with RVR -History of paroxysmal A-fib previously converted with metoprolol and flecainide -Patient on diltiazem -Will continue diltiazem gtt and metoprolol and start flecainide 100 mg twice daily as per cardiology recommendations -Heparin drip -Cardiology consult -Order echocardiogram as well -TSH, D-dimer, BNP, troponin within normal limits and lab workup overall unremarkable #CAROL -Patient with previous diagnosis of CAROL however she reports since she lost weight she is unsure if she has CAROL anymore and does not use a CPAP -May benefit from following up with PCP or email marketing intern as untreated sleep apnea can make it difficult to treat/control her A-fib #Type 2 diabetes mellitus -Glucose checks and sliding scale insulin -Hold home semaglutide CODE status: Discussed CODE status regarding pt wishes to be full code, DNR okay for intubation, and DNR/DNI. Following discussions about the differences in these status, requested DNR/DNI. Discussed potential of cardioversion with patient regarding A-fib if she were to become hypotensive/unstable due to her A-fib with RVR and she said she would be okay with that but that she would not want any additional measures like CPR #DVT ppx: Heparin drip Shereen Horn MD Charges/Coding Visit Charges Inpatient E&M: 56689 Init Hosp L2
[2024-11-05 18:40] LABS: Troponin-I HS 14 pg/mL (3.0-54.0)
[2024-11-05 19:13] LABS: Prothrombin Time (Protime)PT. 13.4 SECONDS (11.7-14.9)
--- NOTE | 2024-11-05 20:28 | ECHOCS_ITS ---
Reason For Study: AFIB Procedure This was a 2D Doppler, Color Flow transthoracic echocardiogram. The study was technically difficult. Contrast injection was performed. Exam performed portable in patient room. Left Ventricle Normal LV size. Left ventricular systolic function is normal. The left ventricular ejection fraction is 65 %. No regional wall motion abnormalities noted. Right Ventricle Normal RV size. Normal systolic function. Atria Normal left atrium. Normal right atrium. Mitral Valve Normal mitral valve. Tricuspid Valve Normal tricuspid valve. Aortic Valve Trisinus/trileaflet aortic valve. Pulmonic Valve Normal pulmonic valve. Great Vessels Normal aortic root. The pulmonary artery is normal size. Normal inferior vena cava. Pericardium/Pleural No pericardial effusion. MMode/2D Measurements & Calculations LVIDd: 4.2 cm IVSd: 1.1 cm LVOT diam: 2.1 cm LVIDs: 2.9 cm LVPWd: 1.2 cm LVOT area: 3.4 cm2 FS: 30.7 % Ao root diam: 2.9 cm LAV(MOD-bp): 34.7 ml LVAd ap4: 31.6 cm2 LAV(MOD-bp) Indexed: 17.3 ml/m2 LVLd ap4: 7.8 cm LAV(MOD-sp2): 40.6 ml EDV(MOD-sp4): 106.4 ml LAV(MOD-sp4): 27.2 ml EDV(sp4-el): 109.1 ml LVAs ap4: 19.3 cm2 LVLs ap4: 7.4 cm ESV(MOD-sp4): 44.6 ml ESV(sp4-el): 42.5 ml EF(MOD-sp4): 58.1 % EF(sp4-el): 61.0 % SV(MOD-sp4): 61.8 ml SV(sp4-el): 66.6 ml LA A4 area: 12.2 cm2 SI(MOD-sp4): 30.9 ml/m2 LA dimension(2D): 3.3 cm RA A4 area: 14.8 cm2 Time Measurements MV dec time: 0.18 sec Doppler Measurements & Calculations MV E max sajan: 63.6 cm/sec Lat Peak E' Sajan: 12.5 cm/sec Med Peak E' Sajan: 10.2 cm/sec MV A max sajan: 40.0 cm/sec E/E' lat: 5.1 E/E' med: 6.3 MV E/A: 1.6 MV V2 max: 66.7 cm/sec Ao V2 max: 89.3 cm/sec MV max P.8 mmHg MV dec slope: 351.5 cm/sec2 Ao max P.2 mmHg MV V2 mean: 39.7 cm/sec Ao V2 mean: 62.0 cm/sec MV mean P.72 mmHg Ao mean P.7 mmHg MV V2 VTI: 17.9 cm Ao V2 VTI: 17.5 cm AV (velocity ratio): 1.1 MVA(VTI): 3.5 cm2 ANNIA(I,D): 3.6 cm2 ANNIA(V,D): 3.7 cm2 LV V1 max: 97.7 cm/sec SV(LVOT): 62.8 ml PA V2 max: 74.5 cm/sec LV V1 max P.8 mmHg PA V2 mean: 57.1 cm/sec LV V1 mean P.1 mmHg LV V1 mean: 66.8 cm/sec LV V1 VTI: 18.7 cm ECHO/Echo Complete W/ Contrast Interpretation Summary Normal LV size. Left ventricular systolic function is normal. The left ventricular ejection fraction is 65 %. Structurally normal valves. Contrast injection was performed. Ordering Physician: Shereen Horn Referring Physician: Matteo Moreno Performed By: Ana María Calderon RCS
--- NOTE | 2024-11-05 20:28 | EKG12_ITS ---
Test Reason : NSR Blood Pressure : */* mmHG Vent. Rate : 62 BPM Atrial Rate : 62 BPM P-R Int : 192 ms QRS Dur : 84 ms QT Int : 402 ms P-R-T Axes : 59 58 32 degrees QTcB Int : 408 ms Normal sinus rhythm Normal ECG When compared with ECG of 05-Nov-2024 15:41, MANUAL COMPARISON REQUIRED DATA IS UNCONFIRMED Confirmed by Damien Goyal ([id number]), web editor MEETA VILA ([id number]) on 11/06/2024 1:40:09 PM Referred By: Matteo Moreno Confirmed By: Damien Goyal
[2024-11-05 20:54] LABS: Magnesium 2.1 mg/dL (1.6-2.6)
[2024-11-05] MEDS: HEPARIN/D5w 25,000 UNITS 25,000 UNITS/250 ML IV.SOLN. 14 UNITS CONT INF (21:28)
[2024-11-05 22:03] LABS: Bedside Glucose 90 mg/dL (74-106)
[2024-11-05] MEDS: dilTIAZem CD 240 MG Capsule PO (23:01)
[2024-11-05] MEDS: 0.9% Saline Lock 10 ML Syringe IV (23:03)
[2024-11-06 00:01] VITALS: BP 84/45; PULSE 67; RESP 16; O2SAT 93
[2024-11-06] MEDS: 0.9% Saline Lock 10 ML Syringe IV (00:01)
[2024-11-06 02:00] VITALS: BP 91/56; PULSE 68; RESP 16; TEMP 36.8; O2SAT 98
[2024-11-06 03:57] LABS: Hemoglobin 12.9 g/dL (12.0-15.0); Mean Corp Hgb Conc 33.9 g/dL (32-36); Mean Corpuscular Hgb 28.4 pg (27.0-32.0); Mean Corpuscular Volume 83.7 fL (81-99); Mean Platelet Vol. 9.3 fl (6.2-12.0); Platelet Count 224 K/mm3 (150-450); RBC Distribution Width CV 12.7 % (11.6-14.6); RBC Distribution Width SD 38.6 fl (35.1-43.9); Red Blood Count 4.54 M/mm3 (4.2-5.4); White Blood Count 6.8 K/mm3 (4.4-11.0)
[2024-11-06 04:14] LABS: Partial Thromboplast Time 60.6 Seconds (24.1-36.2)
[2024-11-06 04:33] LABS: ALB/GLOB Ratio 0.9 RATIO (0.9-2.4); AST(SGOT) 17 U/L (15-37); Alanine Aminotransfer ALT/SGPT 25 U/L (13-56); Albumin, Serum 3.4 g/dL (3.2-5.0); Alkaline Phosphatase 40 U/L (45-117); Anion Gap 6 (5-15); BUN 17 mg/dL (7-18); BUN/Creat Ratio 27.7 RATIO (10-20); Calcium,Total 8.9 mg/dL (8.5-10.1); Chloride 108 mmol/L (98-107); Creatinine, Serum 0.61 mg/dL (0.55-1.02); EST Glomerular Filtration Rate 110 mL/min (>60); Est Glom Filt Rate - Afr Amer 133 mL/min (>60); Estimated Creatinine Clearance 127.48 ml/min; Globulin 3.8 g/dL (2.2-4.2); Glucose 104 mg/dL (74-106); Potassium 3.5 mmol/L (3.5-5.1); Protein, Total 7.2 g/dL (6.4-8.2); Sodium Level 139 mmol/L (136-145)
[2024-11-06 07:11] LABS: Bedside Glucose 97 mg/dL (74-106)
[2024-11-06 07:22] VITALS: O2SAT 94
--- NOTE | 2024-11-06 07:52 | CON.PCM.CA_ITS ---
Assessment & Plan Assessment/Plan (1) Atrial fibrillation with rapid ventricular response: PLAN: Patient carries a history of atrial fibrillation in the past that has been paroxysmal. This episode started approximately 1300 hrs. and lasted a little over 9 hours. She was heparinized during part of this time. She spontaneously converted after 100 mg of flecainide p.o. 25 mg metoprolol and a dose of diltiazem. Currently the patient's heart rate is 85 in sinus rhythm blood pressure is 90?100 systolic. [id number] score equals 2 therefore I would recommend the patient be on Eliquis for a minimum of 3 months and preferably 6 months of normal sinus rhythm. If she once again goes a prolonged period of time without atrial fibrillation consideration be given of stopping the Eliquis after 3 to 6 months. The patient has an iWatch which was accurate in detecting her atrial fibrillation she is very symptomatic when she goes into atrial fibs. From a cardiovascular standpoint the patient to be maintained on flecainide 100 mg twice daily and metoprolol tartrate 25 mg twice daily. The diltiazem will be discontinued. The patient be started on Eliquis today and the heparin discontinued. The patient should be ambulated in the halls and if she tolerates this without incident can be discharged later today. The patient is a follow-up in the [facility] office next week for an EKG and followed up with an office visit in 10 to 14 days. (2) Hemoglobin A1c less than 7.0%: PLAN: Diabetes will be managed by the primary service. PLAN: Plan 1. DC heparin. 2. Start Eliquis 5 mg twice daily. 3. DC diltiazem. 4. Continue flecainide 100 mg twice daily we will check EKG for QT interval if acceptable can discharge to home later today. 5. Metoprolol tartrate 25 mg twice daily. 6. The patient have an EKG done in the [facility] office next week. She was instructed to call for an appointment. 7. Patient to follow-up in the [facility] office with advanced practitioner in 10 to 14 days. HPI Consult Data Date of Consult: 11/06/24 HPI Narrative HPI Narrative: ROSE IVY, is a 48 F who presents with a history of sudden onset of atrial fibrillation at approximately 1300 hrs. yesterday. The patient's iWatch went off and she was symptomatic that was identical to her previous event several years ago. The patient had been controlled with a combination of flecainide and beta- sonam therapy but was discontinued sometime in the last year due to the lack of any recurrence of atrial fibrillation. The patient had not been on oral anticoagulation therapy. She has no prior history of an ischemic event she has no history of any valvular heart disease that she is aware of. The patient does carry history of diabetes mellitus. Her [id number] score equals 2. The patient did have COVID about 2 weeks ago and woke up Thanksgiving morning febrile that lasted about 24 hours and resolved spontaneously. Otherwise there is no triggering events that could be elucidated. The patient came to the emergency department where she was given IV Cardizem which slowed the rate transiently but then it increased again up above 120?140. She transiently blocked down with a Alana but never broke into sinus rhythm. The patient was given flecainide 100 mg in the emergency department as well as beta-sonam therapy and admitted to the hospital. She was placed on IV heparin. The patient has no history of nuisance bleeding. There is no family history of coronary artery disease. Patient has never had a TIA or CVA. Last evening 20 to 15 hours the patient spontaneously converted into sinus rhythm and is maintaining sinus rhythm in the 80-90 bpm range. Patient's blood pressures in the 90?100 systolic range. She denies any symptoms and reports that she feels back to normal. The patient's D-dimer was negative her troponins were negative x 2 sets and her BNP was 4.1 although she is overweight. FORMERLY [facility] Medical History Health care maintenance Colon cancer screening Hot flashes Intertriginous dermatitis associated with moisture Excessive and redundant skin and subcutaneous tissue Obesity, Class I, BMI 30-34.9 Striae atrophic Hemoglobin A1c less than 7.0% Recent weight loss Abdominal panniculus Gallstones Intertrigo Elevated LFTs Type 2 diabetes mellitus URI (upper respiratory infection) Lymphadenopathy COVID-19 (08/16/21) Preoperative evaluation to rule out surgical contraindication Morbid obesity Wrist pain, right Chronic cough Obstructive sleep apnea Obesity Atrial fibrillation with RVR (09/2019) Paroxysmal A-fib (09/2019) History of blood transfusion Chronic back pain Carpal tunnel syndrome Home Medications ?Medication ?Instructions ?Recorded ?Last Taken ?Type semaglutide 2 mg/dose (8 mg/3 mL) 0.6667 mg subcut QWEEK 11/05/24 11/05/24 History subcutaneous pen injector (Ozempic) Allergy/AdvReac Type Severity Reaction Status Date / Time Penicillins Allergy Rash Verified 11/05/24 14:21 Family History Father Diabetes Mother Cancer ovarian and thyroid Grandmother Dementia Other Arthritis Mental problems Surgical History History of tubal ligation History of cholecystectomy History of bunionectomy Social History household members: significant other Smoking Status: Never smoker alcohol intake: current substance use type: does not use what type of physical activity do you participate in: none additional social history: Does Take Aspirin As Needed Does Take Ibuprofen As Needed ROS Constitutional Constitutional: Reports as per HPI Eyes Eyes: Reports systems reviewed and no addt'l complaints, except as documented ENT HEENT: Reports systems reviewed and no addt'l complaints, except as documented Cardiovascular Cardiovascular: Reports as per HPI Respiratory/Chest Respiratory/Chest: Reports systems reviewed and no addt'l complaints, except as documented Gastrointestinal Gastrointestinal: Reports systems reviewed and no addt'l complaints, except as documented Genitourinary Genitourinary: Reports systems reviewed and no addt'l complaints, except as documented Musculoskeletal Musculoskeletal: Reports systems reviewed and no addt'l complaints, except as documented Integumentary Integumentary: Reports systems reviewed and no addt'l complaints, except as documented Neurologic Neurologic: Reports as per HPI Psychiatric Psychiatric: Reports systems reviewed and no addt'l complaints, except as documented Endocrine Endocrinology: Reports systems reviewed and no addt'l complaints, except as documented Hematologic/Lymphatic Hematologic/Lymphatic: Reports systems reviewed and no addt'l complaints, except as documented Allergic/Immunologic Allergic/Immunologic: Reports systems reviewed and no addt'l complaints, except as documented Physical Exam Const alert and oriented x3 HEENT normocephalic Eyes EOMs intact bilaterally Neck no JVD Carotids: Negative for bruit Chest inspection of chest normal Chest Narrative: Increased AP diameter Resp normal respiratory effort and clear to auscultation bilaterally Cardio regular rate, regular rhythm, S1 normal heart sound and S2 normal heart sound Heart Sounds: murmur systolic I/ soft right sternal border; Negative for click or gallop Bruits: Negative for carotid bruit Extremity no pedal edema Neuro Neuro Narrative: Alert and oriented x 3 Psych mental status grossly normal Risk Stratification Risk Stratification Applicable: No Charges/Coding Visit Charges Inpatient E&M: 96785 Init Hosp L2 Objective Data Vital Signs: Vital Signs Temp Pulse Resp BP Pulse Ox O2 Del Method O2 Flow Rate 98.3 F 68 16 91/56 L 98 Room Air 2 11/06/24 02:00 11/06/24 02:00 11/06/24 02:00 11/06/24 02:00 11/06/24 02:00 11/06/24 02:00 11/05/24 22:32 Oxygen Flow Rate (L/min) 2 Oxygen Delivery Method Room Air Weight: 206 lb 2.115 oz Body Mass Index (BMI) 34.2 Intake & Output: Intake and Output for Last 24 Hours 11/04/24 11/05/24 11/06/24 23:59 23:59 23:59 Intake Total 42.58 / 282.58 586.81 / 586.81 Balance 42.58 / 282.58 586.81 / 586.81 Lab / Micro Data Attestation: I reviewed the patient's lab results. 11/06/24 03:41 11/06/24 03:41 Labs: Laboratory Results - last 24 hr 11/05/24 14:55: WBC 6.8, RBC 4.73, Hgb 13.4, Hct 39.0, MCV 82.5, MCH 28.3, MCHC 34.4, RDW Std Deviation 37.9, RDW Coeff of Salome 12.5, Plt Count 229, MPV 9.3, Immature Gran % (Auto) 0.300, Neut % (Auto) 60.4, Lymph % (Auto) 28.3, [place] % (Auto) 7.3, Eos % (Auto) 3.1, Baso % (Auto) 0.6, Absolute Neuts (auto) 4.1, Absolute Lymphs (auto) 1.93, Nucleated RBC % 0, PT 13.4, INR 1.0, APTT 27.0, D- Dimer Quant (PE/DVT) 0.27, Sodium 138, Potassium 3.6, Chloride 107, Carbon Dioxide 25.0, Anion Gap 6, BUN 21 H, Creatinine 0.69, Estim Creat Clear Calc 113.32, Est GFR (MDRD) Af Amer 117, Est GFR (MDRD) Non-Af 97, BUN/Creatinine Ratio 30.6 H, Glucose 142 H, Calcium 9.6, Troponin I High Sens 4, B-Natriuretic Peptide 4.1, TSH 2.120 11/05/24 17:32: Magnesium 2.1, Troponin I High Sens 14 11/05/24 21:30: POC Glucose 90 11/06/24 03:41: WBC 6.8, RBC 4.54, Hgb 12.9, Hct 38.0, MCV 83.7, MCH 28.4, MCHC 33.9, RDW Std Deviation 38.6, RDW Coeff of Salome 12.7, Plt Count 224, MPV 9.3, A PTT 60.6 H, Sodium 139, Potassium 3.5, Chloride 108 H, Carbon Dioxide 25.0, Anion Gap 6, BUN 17, Creatinine 0.61, Estim Creat Clear Calc 127.48, Est GFR (MDRD) Af Amer 133, Est GFR (MDRD) Non-Af 110, BUN/Creatinine Ratio 27.7 H, Glucose 104, Calcium 8.9, Total Bilirubin 0.40, AST 17, ALT 25, Alkaline Phosphatase 40 L, Total Protein 7.2, Albumin 3.4, Globulin 3.8, Albumin/Globulin Ratio 0.9 11/06/24 06:15: POC Glucose 97 Rhythm Strip Rhythm Strip: Sinus Rhythm Rate: 85 Cardiology Labs/Tests 11/05/24 14:55: WBC 6.8, RBC 4.73, Hgb 13.4, Hct 39.0, MCV 82.5, MCH 28.3, MCHC 34.4, Plt Count 229, MPV 9.3, Immature Gran % (Auto) 0.300, Neut % (Auto) 60.4, Lymph % (Auto) 28.3, [place] % (Auto) 7.3, Eos % (Auto) 3.1, Baso % (Auto) 0.6, Absolute Neuts (auto) 4.1, Nucleated RBC % 0, PT 13.4, INR 1.0, APTT 27.0, D- Dimer Quant (PE/DVT) 0.27, Sodium 138, Potassium 3.6, Chloride 107, Carbon Dioxide 25.0, Anion Gap 6, BUN 21 H, Creatinine 0.69, Est GFR (MDRD) Af Amer 117, Est GFR (MDRD) Non-Af 97, BUN/Creatinine Ratio 30.6 H, Glucose 142 H, Calcium 9.6, B-Natriuretic Peptide 4.1 11/05/24 17:32: Magnesium 2.1 11/06/24 03:41: WBC 6.8, RBC 4.54, Hgb 12.9, Hct 38.0, MCV 83.7, MCH 28.4, MCHC 33.9, Plt Count 224, MPV 9.3, APTT 60.6 H, Sodium 139, Potassium 3.5, Chloride 108 H, Carbon Dioxide 25.0, Anion Gap 6, BUN 17, Creatinine 0.61, Est GFR (MDRD) Af Amer 133, Est GFR (MDRD) Non-Af 110, BUN/Creatinine Ratio 27.7 H, Glucose 104, Calcium 8.9, Total Bilirubin 0.40 Rhythm: EKG: ECHO: Stress Test: Cardiac Cath: PCI: CT Surgery: Holter monitor: EPS: PPM: CXR: Chest CT Scan: Radiography Diagnostic Testing: Radiology Impression Chest X-Ray 11/05/24 15:15 IMPRESSION: Mild degree of vascular congestion. Electronically Signed: Farhad Ornelas MD at 15:31 EST ,
[2024-11-06 08:13] VITALS: BP 95/66; PULSE 74; RESP 16; TEMP 36.6; O2SAT 96
[2024-11-06] MEDS: Flecainide 100 MG Tablet PO (08:15)
[2024-11-06] MEDS: FLU VACC 2024-25(6MOS UP)/PF 45 MCG/0.5 ML SYRINGE IM (08:15)
--- NOTE | 2024-11-06 09:15 | EKG12_ITS ---
Test Reason : Blood Pressure : */* mmHG Vent. Rate : 66 BPM Atrial Rate : 66 BPM P-R Int : 182 ms QRS Dur : 82 ms QT Int : 394 ms P-R-T Axes : 53 28 21 degrees QTcB Int : 413 ms Normal sinus rhythm Normal ECG When compared with ECG of 06-Nov-2024 05:37, MANUAL COMPARISON REQUIRED DATA IS UNCONFIRMED Confirmed by Damien Goyal ([id number]), editor managing director ZECHARIAH NORIEGA ([id number]) on 11/09/2024 9:10:53 AM Referred By: Matteo Moreno Confirmed By: Damien Goyal
[2024-11-06] MEDS: APIXABAN 5 MG TABLET PO (09:33)
[2024-11-06 09:34] VITALS: BP 92/67; PULSE 73
[2024-11-06] MEDS: Metoprolol Tartrate 25 MG Tablet PO (09:34)
--- NOTE | 2024-11-06 10:00 | EKG12_ITS ---
Test Reason : AM EKG Blood Pressure : */* mmHG Vent. Rate : 77 BPM Atrial Rate : 77 BPM P-R Int : 170 ms QRS Dur : 88 ms QT Int : 390 ms P-R-T Axes : 64 32 21 degrees QTcB Int : 441 ms Normal sinus rhythm Normal ECG When compared with ECG of 05-Nov-2024 22:37, MANUAL COMPARISON REQUIRED DATA IS UNCONFIRMED Confirmed by Damien Goyal ([id number]), food expeditor MEETA VILA ([id number]) on 11/06/2024 1:38:54 PM Referred By: Matteo Moreno Confirmed By: Damien Goyal
--- NOTE | 2024-11-06 10:15 | CASEMGMT ---
Addendum entered by Eunice Yu 11/06/24 13:31: Pt has provided [facility] pharm w/Eliquis co-pay card info. Call placed to the pharmacy. Cost is $10 for the Eliquis and $20.81 for other Rx's. Pt made aware and would like [id number]. Pharmacy notified. Addendum entered by Eunice Yu 11/06/24 12:19: Per [facility] pharmacy, pt has used the 30-day free trial offer card in the past and this cannot be used again. Pt's co-pay is $100 for Eliquis. Pt made aware. She was provided w/the $10 co-pay card, aware to activate, and once activated to supply the pharmacy with card info. She would like to have script filled @ [facility] retail pharmacy today and plans to continue to get refills for Eliquis from [facility] retail pharmacy. Original Note: RN [employer]SEM[employer] CM to room to meet with patient for initial transition planning/care coordination assessment. HAMILTON DE JESUS introduced self and role at [facility]. Pt voices understanding and consents to assessment at this time. Pt sitting up in chair in room in no distress at this time. Pt is A/O at this time and answers all questions appropriately. Care providers, pharmacy, and demographics verified at this time. PCP: Dr Bush Specialists: Denies Preferred Pharmacy[place] [facility] [place] Otherwise, goes to [facility] in [place] Insurance: [facility]. Pt states this insurance is through her husbands employer. She states her husbands current job is ending tomorrow and then he will be starting a new job tomorrow. She is not sure if there will be a lapse in insurances. Questions answered. Offered to have someone talk w/her re: insurance and possible COBRA information, if needed, but she declines, stating she will look into this on her own. Prescription Benefit: Yes. Pt to discharge home on Eliquis. Pt has been on Eliquis in the past and 30-day free trial offer card was used at that time. SEQUINS SPOOLER LIZA, Kathy, made aware and to f/u re: Eliquis cost. Living Will/HPOA: States has both LW and HCPOA, who is her , Nikko. LNOK: , Nikko. 5 adult children. Living Arrangements: Lives with her and one adult son. Independent. Works part-time as a business strategist. Transportation: Pt states drives self and states no transportation concerns at this time. also drives. Friend will take her home @ discharge. DME: Denies using any DME and denies needs. Pt used to wear a PAP but states no longer uses it after ~ 80# weight loss. HHC/SNF: No history of either. No needs identified. Pt wishes to return home and states has no concerns with going home at time of discharge except for cost of meds @ discharge. CM to follow for further discharge planning/needs. Advised pt to ask for CM if any further questions/concerns/needs arise. Voices understanding. PLAN: Home. CM to follow re: cost of Eliquis. Connor ENNISN RN CM
--- NOTE | 2024-11-06 11:35 | DCINST_ITS ---
Discharge Instructions Diet Discharge Diet: 1800 Calorie Control Diet DC O2, CPAP, BIPAP needs Additional Home O2 Discharge instructions: No Dressing / Incision Discharge Activity: Return to Normal Activity Weight Bearing Status: Full weight bearing Follow Up Care Test Results: Test results from this visit will be discussed in further detail at your follow- up appointment, if applicable. Discharge Plan Admission Admit Date/Time: 11/05/24 18:32 Primary Reason for Your Visit: Paroxysmal A-fib Attending Provider: Pierre Su Primary Care Provider: Peter Bush Consulting Providers: Damien Goyal; Shereen Horn Instructions Additional Instructions / Restrictions: Have an EKG done at office in 1 week Discharge Orders/Prescriptions Prescriptions: New flecainide 100 mg Tablet 100 mg PO BID Qty: 60 0RF metoprolol tartrate 25 mg Tablet 25 mg PO BID Qty: 60 0RF Eliquis 5 mg Tablet 5 mg PO BID Qty: 60 0RF Continued Ozempic 2 mg/dose (8 mg/3 mL) pen injector 0.6667 mg subcut QWEEK Referrals / Follow Up: Peter Bush MD [Primary Care Provider] - Damien Goyal MD [Med Staff - Active Staff] - See Referral Note (In 10 to 14 days-call for an appointment) Disposition Disposition (needs filled in before D/C Order can be placed): Home, Self Care
--- NOTE | 2024-11-06 11:43 | DS.PCM_ITS ---
Providers Date of Admission: 11/05/24 Date of Discharge: 11/06/24 Primary Care Physician: Dr. Peter Bush MD Consultations 11/05/24 20:28 Consult: Cardiology Routine Consulting Provider: Damien Goyal Reason for Consult: resistant afib rvr EMERGENT Consult: No MD Notified: Yes Date Notified: 11/05/24 Time Notified: 21:00 Method of Notification: Text Reason For Visit: AFIB RVR Diagnosis Discharge Diagnosis (1) Atrial fibrillation with rapid ventricular response: Status: Acute Code(s): I48.91 - Unspecified atrial fibrillation (2) Hemoglobin A1c less than 7.0%: Status: Chronic Code(s): R73.09 - Other abnormal glucose Plan 1. Paroxysmal atrial fibs with RVR #2 obstructive sleep apnea #3 type 2 diabetes Medications at Discharge Home Medications semaglutide 2 mg/dose (8 mg/3 mL) subcutaneous pen injector (Ozempic) 0.6667 mg subcut QWEEK 11/05/24 apixaban 5 mg tablet (Eliquis) 5 mg PO BID #60 tabs 11/06/24 flecainide 100 mg tablet 100 mg PO BID #60 tabs 11/06/24 metoprolol tartrate 25 mg tablet 25 mg PO BID #60 tabs 11/06/24 Hospital Course Operations None Procedures 2-D Echocardiogram Summary of Care Provided Minutes Spent on Discharge: 30 Hospital Course: This 48-year-old white female was seen in the emergency room with complaints that she may be in atrial fibrillation, patient has a history of paroxysmal atrial FaBB but it had been years since she had had an episode. Patient's heart rate was noted to be 1 60-1 70, a vagal maneuver was attempted and the patient briefly normalized her heart rate down into the 80s but after sitting up her heart rate went back up into the 150s and 160s. Patient was given 2 different doses of adenosine which lowered her heart rate briefly but then her heart rate returned to 150. A bolus of Cardizem and a Cardizem drip was ordered the case was discussed with the on-call hockey player who recommended giving 25 mg of oral metoprolol and 100 mg of flecainide and leaving her on a Cardizem drip. Patient was admitted to PCU and monitored, she ultimately converted to normal sinus rhythm, an echocardiogram was performed which was unremarkable. On 11/06/2024, patient was seen and examined: On examination she appeared in good health and spirits, she does not appear to be in any distress. Vital signs as documented. Skin warm and dry and without overt rashes. Neck without JVD, thyroid appears normal, trachea is midline, neck is supple. Lungs clear, normal air movement was noted. Heart exam notable for regular rhythm, normal sounds and absence of murmurs, rubs or gallops. Abdomen unremarkable and without evidence of organomegaly, masses, or abdominal aortic enlargement, bowel sounds are present in all 4 quadrants, no abdominal tenderness was noted. Extremities nonedematous, no cyanosis was noted, no clubbing was noted. Neuro: Cranial nerves II through XII are grossly intact, no focal motor deficits were noted, sensation to light touch and pinprick is intact, motor exam 5/5 throughout. Psych: Patient is alert and oriented x3, she does not appear anxious or depressed, she does not appear agitated. Patient appears stable on 11/06/2024 for discharge home. Weight / BMI Weight Weight: 93.5 kg Body Mass Index (BMI) 34.2 ABG / Lab / Microbiology Data 11/06/24 03:41 11/06/24 03:41 Laboratory: Laboratory Results - last 24 hr 11/05/24 14:55: WBC 6.8, RBC 4.73, Hgb 13.4, Hct 39.0, MCV 82.5, MCH 28.3, MCHC 34.4, RDW Std Deviation 37.9, RDW Coeff of Salome 12.5, Plt Count 229, MPV 9.3, Immature Gran % (Auto) 0.300, Neut % (Auto) 60.4, Lymph % (Auto) 28.3, [place] % (Auto) 7.3, Eos % (Auto) 3.1, Baso % (Auto) 0.6, Absolute Neuts (auto) 4.1, Absolute Lymphs (auto) 1.93, Nucleated RBC % 0, PT 13.4, INR 1.0, APTT 27.0, D- Dimer Quant (PE/DVT) 0.27, Sodium 138, Potassium 3.6, Chloride 107, Carbon Dioxide 25.0, Anion Gap 6, BUN 21 H, Creatinine 0.69, Estim Creat Clear Calc 113.32, Est GFR (MDRD) Af Amer 117, Est GFR (MDRD) Non-Af 97, BUN/Creatinine Ratio 30.6 H, Glucose 142 H, Calcium 9.6, Troponin I High Sens 4, B-Natriuretic Peptide 4.1, TSH 2.120 11/05/24 17:32: Magnesium 2.1, Troponin I High Sens 14 11/05/24 21:30: POC Glucose 90 11/06/24 03:41: WBC 6.8, RBC 4.54, Hgb 12.9, Hct 38.0, MCV 83.7, MCH 28.4, MCHC 33.9, RDW Std Deviation 38.6, RDW Coeff of Salome 12.7, Plt Count 224, MPV 9.3, A PTT 60.6 H, Sodium 139, Potassium 3.5, Chloride 108 H, Carbon Dioxide 25.0, Anion Gap 6, BUN 17, Creatinine 0.61, Estim Creat Clear Calc 127.48, Est GFR (MDRD) Af Amer 133, Est GFR (MDRD) Non-Af 110, BUN/Creatinine Ratio 27.7 H, Glucose 104, Calcium 8.9, Total Bilirubin 0.40, AST 17, ALT 25, Alkaline Phosphatase 40 L, Total Protein 7.2, Albumin 3.4, Globulin 3.8, Albumin/Globulin Ratio 0.9 11/06/24 06:15: POC Glucose 97 Radiography Diagnostic Testing: Radiology Impression Chest X-Ray 11/05/24 15:15 IMPRESSION: Mild degree of vascular congestion. Electronically Signed: Farhad Ornelas MD at 15:31 EST , D/C Instructions Discharge Diet: 1800 Calorie Control Diet Weight Bearing Status: Full weight bearing DC O2, CPAP, BIPAP Needs Additional Home O2 Discharge instructions: No DC home with Oxygen: No Meaningful Use Info Meaningful Use Meaningful Use Diagnoses (Choose all that apply): None applicable Ischemic Stroke Statin Dosing Therapy Reference: STATIN DOSE THERAPY REFERENCE: * Patients > 75 years receive moderate or high dose statin therapy. * Patients 75 years or YOUNGER should receive HIGH intensity statin dose unless contraindicated. You will be required to document reason for non-treatment if statin daily dose does not meet guidelines. HIGH DOSE STATIN THERAPY DAILY Atorvastatin > than or = to 40 mg Rosuvastatin > than or = to 20 mg Amlodipine + Atorvastatin > than or = to 2.5/40 mg Ezetimibe + Simvastatin 10/80 mg Simvastatin 80mg Discharge Plan Admission Admit Date/Time: 11/05/24 18:32 Primary Reason for Your Visit: Paroxysmal A-fib Attending Provider: Pierre Su Primary Care Provider: Peter Bush Consulting Providers: Damien Goyal; Shereen Horn Instructions Additional Instructions / Restrictions: Have an EKG done at office in 1 week Discharge Orders/Prescriptions Prescriptions: New flecainide 100 mg Tablet 100 mg PO BID Qty: 60 0RF metoprolol tartrate 25 mg Tablet 25 mg PO BID Qty: 60 0RF Eliquis 5 mg Tablet 5 mg PO BID Qty: 60 0RF Continued Ozempic 2 mg/dose (8 mg/3 mL) pen injector 0.6667 mg subcut QWEEK Referrals / Follow Up: Peter Bush MD [Primary Care Provider] - Damien Goyal MD [Med Staff - Active Staff] - See Referral Note (In 10 to 14 days-call for an appointment) Disposition Disposition (needs filled in before D/C Order can be placed): Home, Self Care Charges/Coding Visit Charges Inpatient E&M: 61998 Disch Hosp
[2024-11-06 11:53] VITALS: BP 111/71; PULSE 72; RESP 16; TEMP 36.7; O2SAT 97
== END 2024-11-06 14:00 | disposition home or self-care (01) | DRG 310 ==
LOC: ED 18:20 → PCU 19:24
PROVIDERS: Admitting Provider Internal Medicine; Emergency Provider Emergency Medicine; PCP Internal Medicine; Referring Provider Emergency Medicine; Visit Provider Internal Medicine
DX: I48.0 Paroxysmal atrial fibrillation (principal); E11.9 Type 2 diabetes mellitus without complications; Z66 Do not resuscitate; Z68.34 Body mass index [BMI] 34.0-34.9, adult; G47.33 Obstructive sleep apnea (adult) (pediatric); E66.3 Overweight; Z23 Encounter for immunization; Z79.85 Long-term (current) use of injectable non-insulin antidiabetic drugs; Z86.16 Personal history of COVID-19
CPT/HCPCS: 36415; 71045; 80048; 80053; 82962; 83735; 83880; 84443; 84484; 85025; 85027; 85379; 85610; 85730; 90656; 93005; 93306; 99285; J7030; Q9957; A4216; C8929; J0153

== ENCOUNTER 2025-01-29 06:21 | Day surgery (SDC) | payer OTHER, SELFPAY ==
--- NOTE | 2025-01-27 17:56 | PAT.ANESEVAL ---
Pre-Assessment Diagnosis/Proposed Procedure Planned Operative Procedure(s): CSCOPE Anesthesia History Anesthesia History - corporate quality assurance manager: Anesthesia History - corporate quality assurance manager Hx Hospitalization Yes: 11/2024 AFIB 01/27/25 09:17 Any Problems With Anesthesia No 01/27/25 09:17 Cholinesterase deficiency No 01/27/25 09:17 You/Your Family Experience No 01/27/25 09:17 fever (hyperthermia) with Relationship Recent Exposure to Contagious Disease Does patient have nerve No 01/27/25 09:17 stimulator Patient instructed to have device shut off --Does patient have Pacemaker or ICD? When Was Last Pacemaker Check QUESTION #4 FULL TEXT: You/Your Family Experience fever (hyperthermia) with Anesthesia Last Oral Intake Last Oral intake: Last Oral Intake NPO since Meds taken in AM with sips of water? Meds patient instructed to take am of surgery PONV PONV - corporate quality assurance manager: PONV - corporate quality assurance manager Female Yes 01/27/25 09:17 HX of Motion Sickness Yes 01/27/25 09:17 HX of N/V After Surgery No 01/27/25 09:17 Non-Smoker Yes 01/27/25 09:17 Duration of Surgery greater No 01/27/25 09:17 than 60 minutes Number of Risk Factors 3 01/27/25 09:17 PONV Score Moderate Risk 01/27/25 09:17 Height & Weight Height & Weight: Anesthesia: Height & Weight Height 5 ft 5 in 01/07/25 09:53 Respiratory Assessment Respiratory Assessment - corporate quality assurance manager: Respiratory Tract Infection Hx - corporate quality assurance manager Hx Respiratory Tract Infection No 01/27/25 09:17 STOP Sleep Apnea STOP Sleep Apnea - corporate quality assurance manager: STOP Sleep Apnea - corporate quality assurance manager Hx Hypertension Yes 01/27/25 09:17 Hx Sleep Apnea Yes 01/27/25 09:17 CPAP Yes 01/27/25 09:17 BIPAP No 01/27/25 09:17 Do you snore loudly (louder than talking or can be heard Do you often feel tired/ fatigued/ sleepy during daytime? Has anyone observed you stop breathing during sleep? STOP Results Positive 01/27/25 09:17 QUESTION #5 FULL TEXT : Do you snore loudly (louder than talking or can be heard through closed doors)? Tobacco Use History Tobacco Use History - corporate quality assurance manager: Tobacco Use History - corporate quality assurance manager Tobacco Use Smoking Status Never smoker 01/27/25 09:17 Hx Tobacco Use No 01/27/25 09:17 Years Smoking Packs Smoked per Day Smoking Cessation Date was within the last 15 years Hx Smoking Cessation Date Hx Smoking Cessation Counseling Hematologic Medial History Hematologic Hx - corporate quality assurance manager: Hematologic Medical Hx - fluid designer Hx of Blood Transfusion No 01/27/25 09:17 Hx of Transfusion in last 3 No 01/27/25 09:17 Months Date of Last Transfusion (if within last 3 months) Ever experience any problems No 01/27/25 09:17 with transfusion(s)? Specify any problems Hx of Preganancy in last 3 N/A 01/27/25 09:17 Months Nurse Filling Out Transfusion [facility] 01/27/25 09:17 & Questions: Date: 01/27/25 01/27/25 09:17 Time: 09:17 01/27/25 09:17 Patient unable to answer at this time (ie. confused, unrespo /Reproduction History /Reproductive History - corporate quality assurance manager: /Reproductive Hx- corporate quality assurance manager Hx Now Gestational Age (in weeks): EDC: Hx Hx Para Hx Section SAB No 11/05/24 20:29 PFSH Medical History (Updated 01/27/25 @ 09:22 by Tonya Martines) Wears glasses Wears dentures Diabetes Low iron Fatty liver Non-smoker CPAP (continuous positive airway pressure) dependence Sleep apnea Chronic cough History of echocardiogram Cardiology follow-up encounter History of atrial fibrillation Type 2 diabetes mellitus without complication Atrial fibrillation with rapid ventricular response Health care maintenance Colon cancer screening Hot flashes Intertriginous dermatitis associated with moisture Excessive and redundant skin and subcutaneous tissue Obesity, Class I, BMI 30-34.9 Striae atrophic Hemoglobin A1c less than 7.0% Recent weight loss Abdominal panniculus Gallstones Intertrigo Elevated LFTs Type 2 diabetes mellitus URI (upper respiratory infection) Lymphadenopathy COVID-19 (08/16/21) Preoperative evaluation to rule out surgical contraindication Morbid obesity Wrist pain, right Chronic cough Obstructive sleep apnea Obesity Atrial fibrillation with RVR (09/2019) Paroxysmal A-fib (09/2019) History of blood transfusion Chronic back pain Carpal tunnel syndrome Home Medications ?Medication ?Instructions ?Recorded ?Last Taken ?Type apixaban 5 mg tablet (Eliquis) 5 mg PO BID #180 tabs 11/27/24 01/26/25 Rx flecainide 100 mg tablet 100 mg PO BID #180 tabs 11/27/24 Unknown Rx metoprolol tartrate 25 mg tablet 25 mg PO BID #180 tabs 11/27/24 Unknown Rx semaglutide 1 mg/dose (4 mg/3 mL) 1 mg subcut WE 01/27/25 01/20/25 History subcutaneous pen injector Allergy/AdvReac Type Severity Reaction Status Date / Time Penicillins Allergy Rash Verified 01/27/25 09:14 Family History Father Diabetes Mother Cancer ovarian and thyroid Grandmother Dementia Other Arthritis Mental problems Surgical History History of tubal ligation History of cholecystectomy History of bunionectomy Social History household members: significant other Smoking Status: Never smoker alcohol intake: current alcohol intake frequency: a few times a month substance use type: does not use caffeine: Yes Type: carbonated beverages Number of servings: 1 and coffee Number of servings: 2 what type of physical activity do you participate in: none additional social history: Does Take Aspirin As Needed Does Take Ibuprofen As Needed Audit: Pertinent Findings HISTORY of Pertinent Findings History of Pertinent Findings: Patient with a history of paroxysmal atrial fibrillation on metoprolol for rate control and also on flecainide. Pertinent Findings EKG Perinent findings: EKG from November 29, 2024: Sinus Bradycardia WITHIN NORMAL LIMITSElectronically signed on 11/29/2024 at 12:07 by Quincy Chapin [employer] Version [id number] Stress test pertinent findings: Exercise stress test from July 2016: Peak METS of 11, no cardiac dysrhythmias, no chest pain and no evidence of EKG changes on stress test Echo (EF%) pertinent findings: Echo from November 06, 2024: Normal LV size, left ventricular systolic function is normal with an estimated left ventricular EF of 65%. Structurally normal valves. Consult pertinent findings: Patient was seen by Андрей Narayan NP cardiology on November 27, 2024 and at that time she appeared to be in sinus rhythm. Discussed continuing medications. Recommendation Anesthesia Recommendation Anesthesia recommendation: OPTIMIZED for anesthesia
--- NOTE | 2025-01-27 18:01 | PAT.ANESEVAL ---
Pre-Assessment Diagnosis/Proposed Procedure Planned Operative Procedure(s): CSCOPE Anesthesia History Anesthesia History - field talent qualification specialist: Anesthesia History - field talent qualification specialist Hx Hospitalization Yes: 11/2024 AFIB 01/27/25 09:17 Any Problems With Anesthesia No 01/27/25 09:17 Cholinesterase deficiency No 01/27/25 09:17 You/Your Family Experience No 01/27/25 09:17 fever (hyperthermia) with Relationship Recent Exposure to Contagious Disease Does patient have nerve No 01/27/25 09:17 stimulator Patient instructed to have device shut off --Does patient have Pacemaker or ICD? When Was Last Pacemaker Check QUESTION #4 FULL TEXT: You/Your Family Experience fever (hyperthermia) with Anesthesia Last Oral Intake Last Oral intake: Last Oral Intake NPO since Meds taken in AM with sips of water? Meds patient instructed to take am of surgery PONV PONV - field talent qualification specialist: PONV - field talent qualification specialist Female Yes 01/27/25 09:17 HX of Motion Sickness Yes 01/27/25 09:17 HX of N/V After Surgery No 01/27/25 09:17 Non-Smoker Yes 01/27/25 09:17 Duration of Surgery greater No 01/27/25 09:17 than 60 minutes Number of Risk Factors 3 01/27/25 09:17 PONV Score Moderate Risk 01/27/25 09:17 Height & Weight Height & Weight: Anesthesia: Height & Weight Height 5 ft 5 in 01/07/25 09:53 Respiratory Assessment Respiratory Assessment - field talent qualification specialist: Respiratory Tract Infection Hx - field talent qualification specialist Hx Respiratory Tract Infection No 01/27/25 09:17 STOP Sleep Apnea STOP Sleep Apnea - field talent qualification specialist: STOP Sleep Apnea - field talent qualification specialist Hx Hypertension Yes 01/27/25 09:17 Hx Sleep Apnea Yes 01/27/25 09:17 CPAP Yes 01/27/25 09:17 BIPAP No 01/27/25 09:17 Do you snore loudly (louder than talking or can be heard Do you often feel tired/ fatigued/ sleepy during daytime? Has anyone observed you stop breathing during sleep? STOP Results Positive 01/27/25 09:17 QUESTION #5 FULL TEXT : Do you snore loudly (louder than talking or can be heard through closed doors)? Tobacco Use History Tobacco Use History - field talent qualification specialist: Tobacco Use History - field talent qualification specialist Tobacco Use Smoking Status Never smoker 01/27/25 09:17 Hx Tobacco Use No 01/27/25 09:17 Years Smoking Packs Smoked per Day Smoking Cessation Date was within the last 15 years Hx Smoking Cessation Date Hx Smoking Cessation Counseling Hematologic Medial History Hematologic Hx - field talent qualification specialist: Hematologic Medical Hx - clinical documentation specialist Hx of Blood Transfusion No 01/27/25 09:17 Hx of Transfusion in last 3 No 01/27/25 09:17 Months Date of Last Transfusion (if within last 3 months) Ever experience any problems No 01/27/25 09:17 with transfusion(s)? Specify any problems Hx of Preganancy in last 3 N/A 01/27/25 09:17 Months Nurse Filling Out Transfusion [facility] 01/27/25 09:17 & Questions: Date: 01/27/25 01/27/25 09:17 Time: 09:17 01/27/25 09:17 Patient unable to answer at this time (ie. confused, unrespo /Reproduction History /Reproductive History - field talent qualification specialist: /Reproductive Hx- field talent qualification specialist Hx Now Gestational Age (in weeks): EDC: Hx Hx Para Hx Section SAB No 11/05/24 20:29 PFSH Medical History Wears glasses Wears dentures Diabetes Low iron Fatty liver Non-smoker CPAP (continuous positive airway pressure) dependence Sleep apnea Chronic cough History of echocardiogram Cardiology follow-up encounter History of atrial fibrillation Type 2 diabetes mellitus without complication Atrial fibrillation with rapid ventricular response Health care maintenance Colon cancer screening Hot flashes Intertriginous dermatitis associated with moisture Excessive and redundant skin and subcutaneous tissue Obesity, Class I, BMI 30-34.9 Striae atrophic Hemoglobin A1c less than 7.0% Recent weight loss Abdominal panniculus Gallstones Intertrigo Elevated LFTs Type 2 diabetes mellitus URI (upper respiratory infection) Lymphadenopathy COVID-19 (08/16/21) Preoperative evaluation to rule out surgical contraindication Morbid obesity Wrist pain, right Chronic cough Obstructive sleep apnea Obesity Atrial fibrillation with RVR (09/2019) Paroxysmal A-fib (09/2019) History of blood transfusion Chronic back pain Carpal tunnel syndrome Home Medications ?Medication ?Instructions ?Recorded ?Last Taken ?Type apixaban 5 mg tablet (Eliquis) 5 mg PO BID #180 tabs 11/27/24 01/26/25 Rx flecainide 100 mg tablet 100 mg PO BID #180 tabs 11/27/24 01/28/25 Rx metoprolol tartrate 25 mg tablet 25 mg PO BID #180 tabs 11/27/24 01/28/25 07:00 Rx semaglutide 1 mg/dose (4 mg/3 mL) 1 mg subcut WE 01/27/25 01/20/25 History subcutaneous pen injector Allergy/AdvReac Type Severity Reaction Status Date / Time Penicillins Allergy Rash Verified 01/29/25 06:40 Family History Father Diabetes Mother Cancer ovarian and thyroid Grandmother Dementia Other Arthritis Mental problems Surgical History History of tubal ligation History of cholecystectomy History of bunionectomy Social History household members: significant other Smoking Status: Never smoker alcohol intake: current alcohol intake frequency: a few times a month substance use type: does not use caffeine: Yes Type: carbonated beverages Number of servings: 1 and coffee Number of servings: 2 what type of physical activity do you participate in: none additional social history: Does Take Aspirin As Needed Does Take Ibuprofen As Needed Audit: Pertinent Findings HISTORY of Pertinent Findings History of Pertinent Findings: EKG Pertinent Findings EKG Perinent findings EKG from November 29, 2024: 01/27/25 18:01 Sinus Bradycardia WITHIN NORMAL LIMITSElectronically signed on 11/29/2024 at 12: 07 by Quincy Chapin [employer] Version [id number] Stress Test Pertinent Findings Stress test pertinent findings Exercise stress test from 01/27/25 18:02 July 2016: Peak METS of 11, no cardiac dysrhythmias, no chest pain and no evidence of EKG changes on stress test Echo Pertinent Findings Echo (EF%) pertinent findings Echo from November 06, 2024: 01/27/25 18:01 Normal LV size, left ventricular systolic function is normal with an estimated left ventricular EF of 65%. Structurally normal valves. Consult Pertinent Findings Consult pertinent findings Patient was seen by Андрей 01/27/25 18:01 Sylvain, SAMPLE DISPLAY PREPARER cardiology on November 27, 2024 and at that time she appeared to be in sinus rhythm. Discussed continuing medications. Recommendation Anesthesia Recommendation Anesthesia recommendation: OPTIMIZED for anesthesia
[2025-01-29] VITALS (8 sets, daily range): BP systolic 81–100; BP diastolic 47–85; PULSE 52–65; RESP 14–18; TEMP 36.2–36.5; O2SAT 95–97; BMI 33.7
[2025-01-29 07:17] LABS: Bedside Glucose 82 mg/dL (74-106)
--- NOTE | 2025-01-29 07:29 | PCM.PRE.AN2 ---
ASA Classification* ASA Classification ASA Classification: 3 Assessment & Plan Anesthesia* Anesthesia Assessment Anesthesia Assessment: Discussed sedation and/or anesthesia options, risks, benefits, and alternatives with patient/parents/legal guardian/POA. Questions invited. The patient/parents/legal guardian/POA seems to understand and agrees to proceed with anesthesia plan. Reviewed the physical assessment, medical history, allergy history and patient home medications list prior to surgery/procedure/anesthetic and documented any changes. Performed airway and anesthesia risk assessments. Anesthesia Type Anesthesia Type: MAC History Source History Obtained from:: Patient and Chart Anesthesia Focused Assessment* Temperature: 97.2 F Pulse Rate: 65 Blood Pressure: 99/60 Respiratory Rate: 18 Pulse Ox: 97 Oxygen Delivery Method: Room Air Airway Assessment Mouth opens: >3 cm Mallampati Score: III Teeth Condition: Dentures (Patient has full upper denture.) and Missing (Patient is edentulous on the bottom.) Neck Range of motion (ROM): Full ROM Focused Labs Anesthesia Preop lab: CBC WBC 6.8 K/mm3 (4.4-11.0) 11/06/24 03:41 11/06/24 RBC 4.54 M/mm3 (4.2-5.4) 11/06/24 03:41 11/06/24 Hgb 12.9 g/dL (12.0-15.0) 11/06/24 03:41 11/06/24 Hct 38.0 % (37-47) 11/06/24 03:41 11/06/24 Plt Count 224 K/mm3 (150-450) 11/06/24 03:41 11/06/24 CHEMISTRY Potassium 3.5 mmol/L (3.5-5.1) 11/06/24 03:41 11/06/24 Sodium 139 mmol/L (136-145) 11/06/24 03:41 11/06/24 Magnesium 2.1 mg/dL (1.6-2.6) 11/05/24 17:32 11/05/24 BUN 17 mg/dL (7-18) 11/06/24 03:41 11/06/24 Creatinine 0.61 mg/dL (0.55-1.02) 11/06/24 03:41 11/06/24 Glucose 104 mg/dL (74-106) 11/06/24 03:41 11/06/24 POC Glucose 82 mg/dL (74-106) 01/29/25 06:47 01/29/25 TSH 2.120 uIU/mL (0.358-3.740) 11/05/24 14:55 11/05/24 COAG PT 13.4 SECONDS (11.7-14.9) 11/05/24 14:55 11/05/24 Pre-Assessment Diagnosis/Proposed Procedure Planned Operative Procedure(s): CSCOPE Anesthesia History Anesthesia History - nutritional services director: Anesthesia History - nutritional services director Hx Hospitalization Yes: 11/2024 AFIB 01/27/25 09:17 Any Problems With Anesthesia No 01/27/25 09:17 Cholinesterase deficiency No 01/27/25 09:17 You/Your Family Experience No 01/27/25 09:17 fever (hyperthermia) with Relationship Recent Exposure to Contagious No 01/29/25 06:44 Disease Does patient have nerve No 01/27/25 09:17 stimulator Patient instructed to have device shut off --Does patient have Pacemaker No 01/29/25 06:44 or ICD? When Was Last Pacemaker Check QUESTION #4 FULL TEXT: You/Your Family Experience fever (hyperthermia) with Anesthesia Last Oral Intake Last Oral intake: Last Oral Intake NPO since 00:00 01/29/25 06:44 Meds taken in AM with sips of water? Meds patient instructed to take am of surgery PONV PONV - nutritional services director: PONV - nutritional services director Female Yes 01/27/25 09:17 HX of Motion Sickness Yes 01/27/25 09:17 HX of N/V After Surgery No 01/27/25 09:17 Non-Smoker Yes 01/27/25 09:17 Duration of Surgery greater No 01/27/25 09:17 than 60 minutes Number of Risk Factors 3 01/27/25 09:17 PONV Score Moderate Risk 01/27/25 09:17 Height & Weight Height & Weight: Anesthesia: Height & Weight Height 5 ft 5 in 01/29/25 06:44 Weight: 91.898 kg 01/29/25 06:44 Body Mass Index (BMI) 33.7 01/29/25 06:44 Respiratory Assessment Respiratory Assessment - nutritional services director: Respiratory Tract Infection Hx - nutritional services director Hx Respiratory Tract Infection No 01/27/25 09:17 Any additional information?: Yes Hx Respiratory Tract Infection: Yes (Patient has a chronic cough. Not infection related.) STOP Sleep Apnea STOP Sleep Apnea - nutritional services director: STOP Sleep Apnea - nutritional services director Hx Hypertension Yes 01/27/25 09:17 Hx Sleep Apnea Yes 01/27/25 09:17 CPAP Yes 01/27/25 09:17 BIPAP No 01/27/25 09:17 Do you snore loudly (louder than talking or can be heard Do you often feel tired/ fatigued/ sleepy during daytime? Has anyone observed you stop breathing during sleep? STOP Results Positive 01/27/25 09:17 QUESTION #5 FULL TEXT : Do you snore loudly (louder than talking or can be heard through closed doors)? Tobacco Use History Tobacco Use History - nutritional services director: Tobacco Use History - nutritional services director Tobacco Use Smoking Status Never smoker 01/27/25 09:17 Hx Tobacco Use No 01/27/25 09:17 Years Smoking Packs Smoked per Day Smoking Cessation Date was within the last 15 years Hx Smoking Cessation Date Hx Smoking Cessation Counseling Hematologic Medial History Hematologic Hx - nutritional services director: Hematologic Medical Hx - manager search engine Hx of Blood Transfusion No 01/27/25 09:17 Hx of Transfusion in last 3 No 01/27/25 09:17 Months Date of Last Transfusion (if within last 3 months) Ever experience any problems No 01/27/25 09:17 with transfusion(s)? Specify any problems Hx of Preganancy in last 3 N/A 01/27/25 09:17 Months Nurse Filling Out Transfusion [facility] 01/27/25 09:17 & Questions: Date: 01/27/25 01/27/25 09:17 Time: 09:17 01/27/25 09:17 Patient unable to answer at this time (ie. confused, unrespo /Reproduction History /Reproductive History - nutritional services director: /Reproductive Hx- nutritional services director Hx Now Gestational Age (in weeks): EDC: Hx Hx Para Hx Section SAB No 11/05/24 20:29 PFSH Medical History Wears glasses Wears dentures Diabetes Low iron Fatty liver Non-smoker CPAP (continuous positive airway pressure) dependence Sleep apnea Chronic cough History of echocardiogram Cardiology follow-up encounter History of atrial fibrillation Type 2 diabetes mellitus without complication Atrial fibrillation with rapid ventricular response Health care maintenance Colon cancer screening Hot flashes Intertriginous dermatitis associated with moisture Excessive and redundant skin and subcutaneous tissue Obesity, Class I, BMI 30-34.9 Striae atrophic Hemoglobin A1c less than 7.0% Recent weight loss Abdominal panniculus Gallstones Intertrigo Elevated LFTs Type 2 diabetes mellitus URI (upper respiratory infection) Lymphadenopathy COVID-19 (08/16/21) Preoperative evaluation to rule out surgical contraindication Morbid obesity Wrist pain, right Chronic cough Obstructive sleep apnea Obesity Atrial fibrillation with RVR (09/2019) Paroxysmal A-fib (09/2019) History of blood transfusion Chronic back pain Carpal tunnel syndrome Home Medications ?Medication ?Instructions ?Recorded ?Last Taken ?Type apixaban 5 mg tablet (Eliquis) 5 mg PO BID #180 tabs 11/27/24 01/26/25 Rx flecainide 100 mg tablet 100 mg PO BID #180 tabs 11/27/24 01/28/25 Rx metoprolol tartrate 25 mg tablet 25 mg PO BID #180 tabs 11/27/24 01/28/25 07:00 Rx semaglutide 1 mg/dose (4 mg/3 mL) 1 mg subcut WE 01/27/25 01/20/25 History subcutaneous pen injector Allergy/AdvReac Type Severity Reaction Status Date / Time Penicillins Allergy Rash Verified 01/29/25 06:40 Family History Father Diabetes Mother Cancer ovarian and thyroid Grandmother Dementia Other Arthritis Mental problems Surgical History History of tubal ligation History of cholecystectomy History of bunionectomy Social History household members: significant other Smoking Status: Never smoker alcohol intake: current alcohol intake frequency: a few times a month substance use type: does not use caffeine: Yes Type: carbonated beverages Number of servings: 1 and coffee Number of servings: 2 what type of physical activity do you participate in: none additional social history: Does Take Aspirin As Needed Does Take Ibuprofen As Needed Review of Systems (Anesthesia) ROS Narrative System reviewed and no additional complaints, except as documented.
--- NOTE | 2025-01-29 07:30 | COLBX_PTH ---
PATIENT: ROSE IVY LOC: EN U#:[id number] AGE/SX: 49/F ROOM: RE01/29/[address]: Dr. Kam Joseph MD : [id number] BED: DIS: 01/29/2025 SPEC #: [id number] RECD: 01/29/25 08:50 STATUS: MICKEY CARLSON #: [id number] ENRIQUE: 01/29/25 07:[address]: Kam Joseph DEPT: SURGICAL PATHOLOGY RECD BY: Carlee Almaguer ENTERED: 01/29/25 10:51 SP TYPE: COLON BX OTHR DR: Dr. Peter Bush MD Tissues: Sigmoid colon biopsy Procedures: Surgery Specimen Level IV HEADER OPERATION: Colonoscopy with biopsy of polyp PRE-OP DIAGNOSIS: Colon cancer screening TISSUE SUBMITTED: Sigmoid colon polyp x2 biopsy MICROSCOPIC DIAGNOSIS Colon, sigmoid, polyp x2, biopsy: * Hyperplastic polyp. MICROSCOPIC DESCRIPTION Slides are reviewed. GROSS DESCRIPTION Received in fixative is one container labeled with the patient's name and designated Sigmoid colon polyp x2 biopsy. The specimen consists of multiple irregular fragments of light souza soft tissue that in aggregate measure 1 x 0.5 x 0.1 cm. The specimen is totally submitted in one cassette. 01/29/2025 TC: CPT:[id number]
--- NOTE | 2025-01-29 07:30 | PCM.HP.STD ---
[facility] - General General Date of Admission: 01/29/25 Date of Service: 01/29/25 Chief Complaint: colonoscopy HPI Narrative ROSE IVY, is a 49 F who presents screening colonoscopy. No prior . no family history [facility], [facility] Medical History Wears glasses Wears dentures Diabetes Low iron Fatty liver Non-smoker CPAP (continuous positive airway pressure) dependence Sleep apnea Chronic cough History of echocardiogram Cardiology follow-up encounter History of atrial fibrillation Type 2 diabetes mellitus without complication Atrial fibrillation with rapid ventricular response Health care maintenance Colon cancer screening Hot flashes Intertriginous dermatitis associated with moisture Excessive and redundant skin and subcutaneous tissue Obesity, Class I, BMI 30-34.9 Striae atrophic Hemoglobin A1c less than 7.0% Recent weight loss Abdominal panniculus Gallstones Intertrigo Elevated LFTs Type 2 diabetes mellitus URI (upper respiratory infection) Lymphadenopathy COVID-19 (08/16/21) Preoperative evaluation to rule out surgical contraindication Morbid obesity Wrist pain, right Chronic cough Obstructive sleep apnea Obesity Atrial fibrillation with RVR (09/2019) Paroxysmal A-fib (09/2019) History of blood transfusion Chronic back pain Carpal tunnel syndrome Home Medications ?Medication ?Instructions ?Recorded ?Last Taken ?Type apixaban 5 mg tablet (Eliquis) 5 mg PO BID #180 tabs 11/27/24 01/26/25 Rx flecainide 100 mg tablet 100 mg PO BID #180 tabs 11/27/24 01/28/25 Rx metoprolol tartrate 25 mg tablet 25 mg PO BID #180 tabs 11/27/24 01/28/25 07:00 Rx semaglutide 1 mg/dose (4 mg/3 mL) 1 mg subcut WE 01/27/25 01/20/25 History subcutaneous pen injector Allergy/AdvReac Type Severity Reaction Status Date / Time Penicillins Allergy Rash Verified 01/29/25 06:40 Family History Father Diabetes Mother Cancer ovarian and thyroid Grandmother Dementia Other Arthritis Mental problems Surgical History History of tubal ligation History of cholecystectomy History of bunionectomy Social History household members: significant other Smoking Status: Never smoker alcohol intake: current alcohol intake frequency: a few times a month substance use type: does not use caffeine: Yes Type: carbonated beverages Number of servings: 1 and coffee Number of servings: 2 what type of physical activity do you participate in: none additional social history: Does Take Aspirin As Needed Does Take Ibuprofen As Needed ROS Constitutional Constitutional: Reports systems reviewed and no addt'l complaints, except as documented Eyes Eyes: Reports systems reviewed and no addt'l complaints, except as documented ENT HEENT: Reports systems reviewed and no addt'l complaints, except as documented Cardiovascular Cardiovascular: Reports systems reviewed and no addt'l complaints, except as documented Respiratory/Chest Respiratory/Chest: Reports systems reviewed and no addt'l complaints, except as documented Gastrointestinal Gastrointestinal: Reports systems reviewed and no addt'l complaints, except as documented Vital Signs Vital Signs Vital Signs: 01/29/25 06:44 01/29/25 06:44 Temperature 97.2 F L Temperature Source Temporal Pulse Rate 65 Respiratory Rate 18 Respiratory Pattern Normal Blood Pressure 99/60 Blood Pressure Mean 73 Blood Pressure Source Monitor Blood Pressure Position Semi-Fowlers Blood Pressure Location Right Arm Pulse Ox 97 Oxygen Delivery Method Room Air Weight Weight: 202 lb 9.6 oz Body Mass Index (BMI) 33.7 Physical Exam Const alert, oriented x3 and no apparent distress Results Lab / Micro Data Labs: Laboratory Results - last 24 hr 01/29/25 06:47: POC Glucose 82 Assessment & Plan Assessment/Plan (1) Colon cancer screening: Charges/Coding Visit Charges Inpatient E&M: 67726 Init Hosp L1
--- NOTE | 2025-01-29 08:11 | OP.COLON_ITS ---
Patient Name: Luz Elena Zamora Procedure Date: 01/29/2025 7:34 AM Date of : 1975 Age: 49 Procedure: Colonoscopy Indications: Screening for colorectal malignant neoplasm Providers: Kam Joseph MD Referring MD: Kam Joseph MD Medicines: Monitored Anesthesia Care Patient Profile: Refer to note in patient chart for documentation of history and physical. Last Colonoscopy: none. The patient's first colonoscopy is today. Complications: No immediate complications. Estimated blood loss: Minimal. Procedure: Pre-Anesthesia Assessment: - Prior to the procedure, a History and Physical was performed, and patient medications and allergies were reviewed. The patient's tolerance of previous anesthesia was also reviewed. The risks and benefits of the procedure and the sedation options and risks were discussed with the patient. All questions were answered, and informed consent was obtained. Prior Anticoagulants: The patient has taken Eliquis (apixaban), last dose was 3 days prior to procedure. ASA Grade Assessment: II - A patient with mild systemic disease. After reviewing the risks and benefits, the patient was deemed in satisfactory condition to undergo the procedure. After I obtained informed consent, the scope was passed under direct vision. Throughout the procedure, the patient's blood pressure, pulse, and oxygen saturations were monitored continuously. The colonoscope was introduced through the anus and advanced to the cecum, identified by appendiceal orifice and ileocecal valve. The ileocecal valve, appendiceal orifice, and rectum were photographed. The entire colon was well visualized. The colonoscopy was performed without difficulty. The patient tolerated the procedure well. The quality of the bowel preparation was adequate. Moderate Sedation: See the other procedure note for documentation of moderate sedation with intraservice time. Scope In: 7:44:46 AM Scope Withdrawal Time 0 hours 11 minutes 1 second Scope Out: 8:03:15 AM Total Procedure Duration Time 0 hours 18 minutes 29 seconds Findings: The perianal and digital rectal examinations were normal. Internal hemorrhoids were found during retroflexion. The hemorrhoids were medium-sized. Two hyperplastic polyps were found in the sigmoid colon. The polyps were 2 to 3 mm in size. These polyps were removed with a cold biopsy forceps. Resection and retrieval were complete. Verification of patient identification for the specimen was done by the nurse using the patient's name, date and medical record number. Estimated blood loss was minimal. The exam was otherwise without abnormality on direct and retroflexion views. Impression: - Internal hemorrhoids. - Two 2 to 3 mm polyps in the sigmoid colon, removed with a cold biopsy forceps. Resected and retrieved. - The examination was otherwise normal on direct and retroflexion views. Recommendation: - Discharge patient to home (ambulatory). - High fiber diet indefinitely. - Continue present medications. - Await pathology results. - Repeat colonoscopy in 5-10 years for surveillance based on pathology results. - Return to my office PRN. Procedure Code(s): --- Professional --- 64168, Colonoscopy, flexible; with biopsy, single or multiple Diagnosis Code(s): --- Professional --- Z12.11, Encounter for screening for malignant neoplasm of colon D12.5, Benign neoplasm of sigmoid colon K64.8, Other hemorrhoids CPT copyright 2021 [employer] [place] [employer]. All rights reserved. The codes documented in this report are preliminary and upon marine architect review may be revised to meet current compliance requirements. Kam Joseph MD 01/29/2025 8:10:57 AM This report has been signed electronically. Number of Addenda: 0 Note Initiated On: 01/29/2025 7:34 AM
--- NOTE | 2025-01-29 08:11 | OP.CCLET_ITS ---
01/29/2025 Peter Bush MD [address] [place] [address] [place] [address] Re : Colonoscopy procedure for Luz Elena Zamora Dear Dr. Bush This procedure was performed on Wednesday, January 29, 2025. My impressions and recommendations are as follows: Impressions : - Internal hemorrhoids. - Two 2 to 3 mm polyps in the sigmoid colon, removed with a cold biopsy forceps. Resected and retrieved. - The examination was otherwise normal on direct and retroflexion views. Recommendations : - Discharge patient to home (ambulatory). - High fiber diet indefinitely. - Continue present medications. - Await pathology results. - Repeat colonoscopy in 5-10 years for surveillance based on pathology results. - Return to my office PRN. My findings are described in the full procedure note, which is enclosed. If I can be of further assistance, please feel free to contact me at . Sincerely, Kam Joseph MD 01/29/2025 8:10:57 AM This report has been signed electronically.
--- NOTE | 2025-01-29 08:17 | PCM.POST.ANE ---
Anesthesia: Postop Eval I Current Vital Signs Temperature: 97.7 F Pulse Rate: 60 Blood Pressure: 82/47 Respiratory Rate: 16 Pulse Ox: 97 Oxygen Delivery Method: Room Air Assessment Airway patent: Yes Spontaneous unlabored respirations: Yes Mental status: Asleep nausea: No Vomiting: No Anesthesia Complication: No Fluid Hydration Crystalloid volume administer (ml): 45 Total IV fluid infused: 45 Progress Note Anesthesia document: Postop Eval 1 completed: Yes
--- NOTE | 2025-01-29 16:14 | PCM.POSTANE2 ---
Anesthesia Postop Eval I Sum Postop Eval Completion status Anesthesia document: Postop Eval 1 completed: Yes Anesthesia Postop Eval I Summary Anesthesia Postop Eval I Summary: Anesthesia Postop Eval I: Assessment Summary Airway patent Yes 01/29/25 08:17 [email or web address] Spontaneous unlabored Yes 01/29/25 08:17 [email or web address] respirations Mental status Asleep 01/29/25 08:17 [email or web address] nausea No 01/29/25 08:17 [email or web address] Vomiting No 01/29/25 08:17 [email or web address] Anesthesia Postop Eval I: Fluid Summary Crystalloid volume administer 45 01/29/25 08:17 [email or web address] (ml) Colloids volume administered ( ml) Blood Product volume administered (ml) Total IV fluid infused 45 01/29/25 08:17 [email or web address] Anesthesia Postop Eval I: Summary Notes Anesthesia Complication No 01/29/25 08:17 [email or web address] Anesthesia Complication Comment: Post-operative progress note Anesthesia: Postop Eval II Evaluation Mental status: Awake and Calm Pain Level: 0 nausea: No Vomiting: No Complications Anesthesia Complication: No
== END 2025-01-29 09:14 | disposition home or self-care (01) ==
LOC: EN 06:21 → AC 06:22
PROVIDERS: PCP Internal Medicine; Referring Provider Surgery; Visit Provider Surgery
PROC: 0DJD8ZZ Inspection of Lower Intestinal Tract, Via Natural or Artificial Opening Endoscopic (ICD-10-PCS; CPT 45378; principal; 2025-01-29 07:25)
DX: Z12.11 Encounter for screening for malignant neoplasm of colon (principal); E11.9 Type 2 diabetes mellitus without complications; K64.8 Other hemorrhoids; D12.5 Benign neoplasm of sigmoid colon; E66.811 Obesity, class 1; Z68.33 Body mass index [BMI] 33.0-33.9, adult; Z79.85 Long-term (current) use of injectable non-insulin antidiabetic drugs; Z79.01 Long term (current) use of anticoagulants; Z79.899 Other long term (current) drug therapy
CPT/HCPCS: 45380; 82962; 88305; A4216; J2405

== ENCOUNTER → 2025-03-05 | Outpatient (CLI) | payer OTHER, SELFPAY ==
--- NOTE | 2025-03-05 12:06 | BI_ITS ---
EXAM: SCRN MAMM (CAD)W/CHRISTINE BILAT 03/05/2025 CLINICAL HISTORY: F, Age 49 y/o , BREAST CANCER SCREENING TECHNIQUE: Bilateral screening digital breast tomosynthesis with 2D and 3D images. Computer aided detection. COMPARISON: Prior exam(s) dated 03/04/2024. FINDINGS: TISSUE DENSITY: The breast tissue is composed of scattered area of fibroglandular density. Bilateral Breast Mammographic Findings: No significant masses, calcifications or other abnormalities are identified. BI/SCRN MAMM (CAD)W/CHRISTINE BILAT IMPRESSION: Right Breast: BIRADS 1 NEGATIVE. Left Breast: BIRADS 1 NEGATIVE. OVERALL FINAL ASSESSMENT: BIRADS 1 NEGATIVE. RECOMMENDATION: Routine annual follow-up in 1 Year A letter with findings and recommendations will be mailed to the patient. Reading Location: [facility]
== END | disposition home or self-care (01) ==
LOC: OPBI 12:04
PROVIDERS: PCP Internal Medicine; Referring Provider Internal Medicine; Visit Provider Internal Medicine
DX: Z12.31 Encounter for screening mammogram for malignant neoplasm of breast (principal)
CPT/HCPCS: 77063; 77067